=== PATIENT | female | born 1975 | race Caucasian/White ===

== ENCOUNTER 2018-03-26 17:45 | Emergency (ER) | payer MEDICAID, SELFPAY ==
[2018-03-26 17:54] VITALS: BP 134/96; PULSE 83; RESP 18; TEMP 36.8; O2SAT 97
[2018-03-26] MEDS: Dexamethasone 4 MG TAB 10 MG PO (18:43)
[2018-03-26] MEDS: Prochlorperazine 10 MG TAB PO (18:43)
[2018-03-26] MEDS: Acetaminophen 500 MG TAB 1000 MG PO (18:44)
--- NOTE | 2018-03-26 18:55 | ED.GENADUL_ITS ---
Discharge Plan Disposition Patient Disposition: HOME Condition: Good Discharge Details Chief Complaint: GenMedical Clinical Impression: Headache, migraine, Ocular migraine Primary Care Provider: Leena Joiner ED Provider: Lance Lee Home Meds and New Rx's Prescriptions: No Action ProAir HFA 200 PUFF HFA aerosol inhaler 2 inh Inhalation PRN PRNRF: 0 Loratadine 10 MG Capsule 10 mg PO DAILY RF: 0 acetaminophen [Tylenol Extra Strength] 500 MG tablet 1,000 mg PO PRN PRNRF: 0 benzonatate 100 MG capsule 100 mg PO PRN PRNRF: 0 xyhovtjtnd-hazhqyudwgyoc-dtad [Fioricet] 1 EACH capsule 1 ea PO Q6H PRN PRN (Reason: Pain) Qty: 20 RF: 0 Discharge Instructions Instructions: Ocular Migraine (ED) Additional Instructions: Please drink 8-10 cups of water per day. Please avoid preserved meats preserved foods. Please avoid caffeine, and stay well-hydrated. If you notice any worsening of your symptoms, or any new symptoms such as vomiting, diarrhea, fever, chills, shortness of breath, chest pain, numbness, weakness, or fainting , please return immediately to the emergency department for reevaluation. Please follow up with your primary care provider as soon as possible for reassessment and reevaluation. As always, it was a pleasure participating in your medical care today. Referrals: Leena Joiner [Primary Care Provider] - Medical Decision Making This is a 42-year-old female with a past medical history of fibromyalgia, and high cholesterol, who presents today for evaluation of headache. Patient states that she had odd visual symptoms of waviness in her vision, occasional speckling, and feeling like she was looking through her eyelids. The symptoms lasted a few minutes, and as she called her primary care provider to discuss his symptoms she stated that the visual symptoms completely resolved, however she then developed a mild to moderate headache. She denies any red flags concerning for severe headache. Physical exam demonstrates no focal neurologic deficits, no signs or symptoms concerning for meningitis. She has no neck stiffness, negative Kernig's and Brudzinski sign. Feel her signs and symptoms are clinically consistent with an optical migraine. test is negative. We will treat with Compazine, Decadron, and acetaminophen. She is requesting that we hold off on Toradol secondary to her history of GI bleeding from Toradol, and will also hold off on Benadryl as she states that she would like to drive home tonight. We will reassess shortly. With a normal neurologic exam, no focal neurologic deficits, and no red flags concerning with her headache, I feel that she would be a good candidate for discharge home with close follow-up with her PCP. 7:45 PM On reassessment the patient has had notable improvement of her headache, and continues to demonstrate a normal neurologic exam and no focal neurologic deficits. Patient is requesting discharge home and I think this is very reasonable. I feel her signs and symptoms are clinically consistent with an optical migraine. Recommended continued hydration, we discussed red flags for which to return the patient understands. I have extensively reviewed the treatment plan and discharge instructions with the patient. I have addressed all patient concerns at this time. The patient was made aware of what symptoms to monitor for that would warrant a return to the emergency department. Discussed the plan with the patient, they demonstrate verbal understanding and agreement with our assessment and plan at this time. HPI General Date/Time Provider Initiated Documentation: 03/26/18 18:13 . HPI Narrative: This is a pleasant 42-year-old female with a past medical history of hyperlipidemia, fibromyalgia, and headaches in the past who presents today for evaluation of headache. She states that she was at home when she noticed some blurry waviness in her vision roughly 2-1/2 hours ago, and gradually worsened, and she self any flashes of light. This is all without an episode of trauma. She then shortly afterwards developed a headache in the back of her head that radiated forward. She contacted her primary care provider, and she states that while she was on the phone with PCP her vision symptoms completely resolved. She still had a headache which she describes as mild to moderate. The patient denies any headache red flags of worst headache of life, thunderclap headache, neck pain, fever, chills, concerning family history of polycystic kidney disease, Marfan syndrome, Zach-Danlos syndrome, abdominal aortic aneurysm, aortic dissection, or intracranial aneurysm. Patient admits to having headaches like this in the past but denies having the visual symptoms. She denies any current pain in her eyes. Her visual symptoms have completely resolved. Patient denies any other complaints at this time, she denies any recent sick contacts, or contacts of meningitis. She has no other complaints at this time. Related Data Home Medications Medication Instructions Recorded Confirmed ProAir HFA 2 inh INHALATION PRN PRN 11/04/14 03/26/18 pxqtaobnkp-qxrjvbyjqqlts-rwla 1 ea PO Q6H PRN PRN #20 capsule 03/29/16 03/26/18 [Fioricet] Loratadine 10 mg PO DAILY 05/30/17 03/26/18 acetaminophen [Tylenol Extra 1,000 mg PO PRN PRN 05/30/17 03/26/18 Strength] benzonatate 100 mg PO PRN PRN 06/06/17 03/26/18 Previous Rx's Medication Instructions Recorded nxauodddqu-xaqjbxiscmbds-jqfw 1 ea PO Q6H PRN PRN #20 capsule 03/29/16 [Fioricet] Allergies Allergy/AdvReac Type Severity Reaction Status Date / Time Sulfa (Sulfonamide Allergy Severe Skin Rash Verified 03/26/18 17:58 Antibiotics) Macrolide Antibiotics Allergy Intermediate Verified 03/26/18 17:58 azithromycin [From Zithromax] Allergy Unknown Verified 03/26/18 17:58 codeine Allergy Unknown Verified 03/26/18 17:58 sulfur dioxide Allergy Unknown Verified 03/26/18 17:58 doxycycline AdvReac Mild Nausea Unverified 03/26/18 17:58 Penicillins AdvReac Mild intestinal Verified 03/26/18 17:58 cramping General Stated Complaint: GenMedical GILLIAN: 3 Review of Systems Review of Systems All systems reviewed & are unremarkable except as noted in HPI and below PFSH ADHD Abdominal pain, epigastric Anxiety Anxiety and depression Asthma Asthma, moderate persistent Carpal tunnel syndrome Cervical radiculopathy Colitis Depression Dysmenorrhea Fibromyalgia Gastroesophageal reflux disease Hematuria IBS (irritable bowel syndrome) Jaw pain Lipoma of abdominal wall Neck pain Primary fibromyalgia syndrome Rhinitis Tobacco abuse Vaginitis Vesicular skin lesions section Ligation of fallopian tube Social History Smoking/Tobacco Use Status: Current every day Exam Narrative Exam Narrative: 1.Const: Well-nourished, Well-developed, appearing stated age 2.Eyes: PERRL, no conjunctival injection, and symmetrical lids. EOMI, PERRL, Peripheral vision intact. No nystagmus. No external signs of preseptal cellulitis, no redness around the eye, no proptosis. No hyphema, no signs of trauma around the eye, no periorbital emphysema. 3.ENT: Atraumatic external nose and ears. Moist MM. Neck: Symmetric, trachea midline, No thyromegaly. Patient demonstrates good movement of cervical neck. There is no nuchal rigidity, no nuchal tenderness. Patient is able to flex the neck without any difficulty or significant pain. Negative Kernig's and Brudzinski sign. 4.CVS: +S1/S2, No murmurs or gallops. Peripheral pulses 2+ and equal in all extremities. Brisk capillary refill in all extremities. 5.RESP: Unlabored respiratory effort. Clear to auscultation bilaterally. No wheezes rales or rhonchi 6.GI: Soft, Nontender/Nondistended, No hepatosplenomegaly. No guarding or rebound. 7.MSK: Normocephalic/Atraumatic, Extremities w/o deformity or ttp No cyanosis or clubbing, Normal movement of all extremities 8.Skin: Warm, Dry. No rashes or lesions. 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 Sensation grossly intact, no focal neurologic deficits. All 6 cardinal planes of vision are fully intact. No evidence of rotatory or vertical nystagmus. The patient demonstrated a normal lcbvpo-oglc-sgoysl, good dexterity. There was no evidence of dysdiadochokinesia. Patient was able to ambulate without difficulty. There was no wide-based gait. Romberg, and spfb-kg-jhiz are both normal on testing. Sensation was intact bilaterally as well as muscle strength bilaterally for all extremities. Patient was able to verbalize butter cup with no slurring, or miss pronunciation. 10.Psych: (AAO) x3. Appropriate mood and affect Course Vital Signs Temperature 36.8 C 03/26/18 17:54 Pulse 83 03/26/18 17:54 Respiratory Rate 18 03/26/18 17:54 Blood Pressure 134/96 H 03/26/18 17:54 Pulse Oximetry 97 03/26/18 17:54 Temperature 36.8 C 03/26/18 17:54 Temperature Source Skin 03/26/18 17:54 Pulse 83 03/26/18 17:54 Respiratory Rate 18 03/26/18 17:54 Respiratory Effort 03/26/18 18:00 Blood Pressure 134/96 H 03/26/18 17:54 Blood Pressure Position Sitting 03/26/18 17:54 Pulse Oximetry 97 03/26/18 17:54 Oxygen Delivery Method Room Air 03/26/18 17:54 Oxygen Flow Rate 0 03/26/18 17:54 Pain Level 6 03/26/18 17:54
[2018-03-26 19:48] VITALS: BP 151/97; PULSE 76; RESP 16; O2SAT 100
--- NOTE | 2018-03-26 19:48 | NUR.NOTE ---
patient report nausea and headache improved 3/10 patient to ne discharged home Nursing Note:
== END 2018-03-26 20:03 | disposition home or self-care (01) ==
PROVIDERS: Emergency Provider Student in an Organized Health Care Education/Training Program; PCP Family Medicine
DX: G43.809 Other migraine, not intractable, without status migrainosus (principal)
CPT/HCPCS: 99282; J8540

== ENCOUNTER 2018-06-12 16:33 | Outpatient (REF) | payer MEDICAID, SELFPAY ==
[2018-06-12 20:49] LABS: ALT 18 U/L (12-78); AST 13 U/L (15-37); Albumin 3.9 g/dL (3.4-5.0); Alkaline Phosphatase 78 U/L (46-116); Anion Gap 9.9 mmol/L (3-11); BUN 11 mg/dL (7-18); Bilirubin, Total 0.3 mg/dL (0.2-1.0); CO2 27.1 mmol/L (21.0-32.0); CREATININE 0.97 mg/dL (0.55-1.02); Calcium 8.8 mg/dL (8.5-10.1); Chloride 101 mmol/L (98-107); Glucose 93 mg/dL (70-100); Potassium 4.5 mmol/L (3.5-5.1); Sodium 138 mmol/L (136-145); Total Protein 7.6 g/dL (6.4-8.2)
[2018-06-12 21:18] LABS: Abs Immature Grans 0.01 k/cumm (0.0-0.09); Absolute Basophil Count 0.01 k/cumm (0.0-0.2); Absolute Eosinophil Count 0.17 k/cumm (0.0-0.7); Absolute Lymphocyte Count 1.35 k/cumm (1.2-3.4); Absolute Monocyte Count 0.86 k/cumm (0.11-0.7); Absolute Neutrophil Count 5.71 k/cumm (1.2-6.7); Basophils % 0.1; Eosinophils % 2.1; HCT 45.3 % (36.0-46.0); HGB 15.2 g/dL (12.0-15.5); Immature Grans % 0.1; Lymphocytes % 16.6; Mean Corp. HGB Concentration 33.6 g/dL (32.0-36.0); Mean Corpuscular Hemoglobin 29.4 pg (27.0-33.0); Mean Corpuscular Volume 87.6 fL (80-95); Mean Platelet Volume 10.6 fL (8.0-11.0); Monocytes % 10.6; Neutrophils % 70.5; Platelet Count 344 x1000/uL (130-400); RBC 5.17 m/cumm (4.00-5.20); RBC Distribution Width 13.9 % (11.7-14.6); White Blood Cell Count 8.11 k/cumm (4.4-10.8)
[2018-06-12 21:21] LABS: Bilirubin Negative (Negative); Blood Moderate (Negative); Clarity Clear; Glucose Negative (Negative); Ketones Negative (Negative); Leukocyte Esterase Negative (Negative); Nitrite Negative (Negative); Specific Gravity 1.015 (1.005-1.025); Urobilinogen 0.2 EU/dL (Up TO 0.2); pH 5.5 (5-8)
[2018-06-12 21:51] LABS: Bacteria Negative HPF (Negative); Crystals Negative HPF (Negative); Epithelial Cells Few HPF (Negative); Mucus Negative (Negative); Other Cells Negative (Negative); RBC Negative (0-2); WBC Negative HPF (0-5)
[2018-06-12 21:52] LABS: C & S Indicated? No; Casts Negative LPF (Negative)
[2018-06-12 22:15] LABS: Bacteria Negative HPF (Negative); C & S Indicated? No; Casts Negative LPF (Negative); Crystals Negative HPF (Negative); Epithelial Cells Few HPF (Negative); Mucus Negative (Negative); Other Cells Negative (Negative); RBC Negative (0-2); WBC Negative HPF (0-5)
== END 2018-06-12 16:53 ==
LOC: NCHCN 16:33
PROVIDERS: PCP Family Medicine; Visit Provider Nurse Practitioner
DX: R10.9 Unspecified abdominal pain (principal); R31.9 Hematuria, unspecified
CPT/HCPCS: 80053; 81003; 81015; 85025

== ENCOUNTER 2018-06-23 01:42 | Outpatient (CLI) | payer MEDICAID, SELFPAY ==
[2018-06-23] MEDS: Omnipaque 350 MG/ML 100 ML BTL IJ (08:42)
--- NOTE | 2018-06-23 08:51 | DI.CT_ITS ---
SYMPTOMS/DIAGNOSIS: ABD PAIN, R10.9, HEMATURIA, R31.9 CT SCAN OF THE ABDOMEN AND PELVIS: CT scan of the abdomen and pelvis was performed prior to an following contrast administration according to the CT urogram protocol. Noncontrast CT scan of the abdomen and pelvis was performed according to the renal colic protocol. No nephrolithiasis is seen. No ureterolithiasis or hydronephrosis is present. Routine post contrast CT scan of the abdomen was then performed. There is scarring or atelectasis in the lung bases. There is a 0.4 cm noncalcified pulmonary nodule in the left lower lobe. This area is unchanged compared to the CT scan of the abdomen and pelvis from 11/04/14. The liver is normal in size. No suspicious hepatic mass is seen. There is focal fatty infiltration seen in the region of the falciform ligament. The portal, superior mesenteric and splenic veins are patent. The gallbladder is negative. There is no biliary ductal dilatation. The pancreas, spleen and adrenal glands are unremarkable. The kidneys show normal and symmetric enhancement. No evidence of a solid renal mass is present. The urinary bladder is intact. The reproductive organs are unremarkable. There is atherosclerosis of the abdominal aorta but no aneurysmal dilatation is seen. No significant abdominal or pelvic adenopathy, ascites or pneumoperitoneum is present. There is mild bowel wall thickening seen in the proximal small bowel in the left upper quadrant. This may represent a mild enteritis. The remainder of the bowel is unremarkable. There is a normal appendix seen in the right lower quadrant of the abdomen. No acute osseous abnormality is seen in the spine. Seven minute delayed images of the abdomen and pelvis were performed. The renal collecting system is unremarkable. No filling defects are seen. The urinary bladder is intact. No filling defects are present. IMPRESSION: 1. No evidence of nephrolithiasis, hydronephrosis or mass in the renal collecting system. 2. Mild bowel wall thickening in the proximal small bowel. This may represent a mild enteritis.
== END 2018-06-23 02:02 ==
PROVIDERS: PCP Family Medicine; Visit Provider Nurse Practitioner
DX: R10.9 Unspecified abdominal pain (principal); R31.9 Hematuria, unspecified; K63.89 Other specified diseases of intestine
CPT/HCPCS: 74178; J3490

== ENCOUNTER 2018-11-24 15:35 | Outpatient (REF) | payer MEDICAID, SELFPAY ==
[2018-11-24 20:56] LABS: Abs Immature Grans 0.02 k/cumm (0.0-0.09); Absolute Basophil Count 0.02 k/cumm (0.0-0.2); Absolute Eosinophil Count 0.17 k/cumm (0.0-0.7); Absolute Lymphocyte Count 1.78 k/cumm (1.2-3.4); Absolute Monocyte Count 0.64 k/cumm (0.11-0.7); Absolute Neutrophil Count 5.31 k/cumm (1.2-6.7); Basophils % 0.3; Eosinophils % 2.1; HCT 46.4 % (36.0-46.0); HGB 15.6 g/dL (12.0-15.5); Immature Grans % 0.3; Lymphocytes % 22.4; Mean Corp. HGB Concentration 33.6 g/dL (32.0-36.0); Mean Corpuscular Hemoglobin 29.2 pg (27.0-33.0); Mean Corpuscular Volume 86.7 fL (80-95); Mean Platelet Volume 10.9 fL (8.0-11.0); Monocytes % 8.1; Neutrophils % 66.8; Platelet Count 405 x1000/uL (130-400); RBC 5.35 m/cumm (4.00-5.20); RBC Distribution Width 13.8 % (11.7-14.6); White Blood Cell Count 7.94 k/cumm (4.4-10.8)
[2018-11-24 21:14] LABS: Anion Gap 12.1 mmol/L (3-11); BUN 13 mg/dL (7-18); CO2 23.9 mmol/L (21.0-32.0); Calcium 8.8 mg/dL (8.5-10.1); Chloride 102 mmol/L (98-107); Glucose 94 mg/dL (70-100); Magnesium 2.2 mg/dL (1.8-2.4); Potassium 4.3 mmol/L (3.5-5.1); Sodium 138 mmol/L (136-145); TSH (W/Ref FT4) 3.08 uIU/mL (0.36-3.74)
[2018-11-26 04:43] LABS: Vitamin D 25 Total 13.7 ng/ml (30-100)
== END 2018-11-24 15:55 ==
LOC: NCHCN 15:35
PROVIDERS: PCP Family Medicine; Visit Provider Nurse Practitioner Family
DX: M62.81 Muscle weakness (generalized) (principal); R51 Headache; R05 Cough; N95.1 Menopausal and female climacteric states
CPT/HCPCS: 80048; 82306; 83735; 84443; 85025

== ENCOUNTER 2018-12-29 10:20 | Outpatient (CLI) | payer MEDICAID, SELFPAY ==
--- NOTE | 2018-12-29 06:00 | DI.RAD_ITS ---
EXAM: XR PAIN CLINIC CERVICAL SP 2V . CLINICAL HISTORY: Cervical Epidural Steroid INjection TECHNIQUE: 2D and realtime digital imaging was performed. COMPARISON: No exams were available for comparison FINDINGS: Images submitted from the pain clinic reveal needle positioning over the midline at the level of C7 i n connection with an epidural steroid injection. Please see Dr. Eden's procedure report for further i nformation. IMPRESSION:
[2018-12-29 10:30] VITALS: BP 130/91; PULSE 76; RESP 20; TEMP 36.8; O2SAT 98
[2018-12-29] MEDS: Midazolam 2 MG/2 ML VIAL IVP ×2 (10:54→11:03)
[2018-12-29] MEDS: Lactated Ringers 1,000 ML 80 ML IV (10:55)
[2018-12-29 11:04] VITALS: BP 110/72; PULSE 76; RESP 20; O2SAT 100
[2018-12-29] MEDS: Dexamethasone Sod. Phos./Pres-Free 10 MG/ML VIAL IJ (11:05)
[2018-12-29] MEDS: Omnipaque 240 MG/ML 50 ML BTL IJ (11:05)
--- NOTE | 2018-12-29 11:05 | PDOC.PAIN_ITS ---
Pain Clinic Procedure Note Procedure Note Procedure Note: Cervical Epidural Steroid Injection DONTRELL HAMPTON has been referred to the [facility] for cervical epidural steroid injection. COMMENTS: I did review Ms. Keen's note and the patient's most recent cervical spine MRI. BERTA was interviewed and the medical record reviewed. There were no medical, pharmacologic, radiographic or other structural contraindications to attempting fluoroscopically guided epidural steroid injection. Risks and expected side effects as well as potential benefit of the procedure were reviewed with BERTA , and BERTA voiced concerns addressed. The printed consent form was signed and witnessed. Standard time-out procedure was performed. The patient was placed in the prone position on the fluoroscopy table and automated blood pressure cuff and pulse oximeter applied. The skin entry point for entering the epidural space by a midline C7-T1 interlaminar approach was identified under fluoroscopy and marked. Following thorough Chlorhexadine p reparation of the skin and draping and 1% lidocaine infiltration of the skin entry point and subcutaneous tissues, an 18 gauge Tuohy needle was placed under fluoroscopic guidance and with loss of resistance technique into the C7-T1 epidural space. Upon needle placement and loss of resistance there were no paresthesiae or return of blood or CSF through the needle. 1 cc of Omnipaque 240 was injected with clear epidural spread in the A/P, lateral and oblique views. 15 mg of preservative free Dexomethasone was injected with no unusual discomfort expressed by BERTA. This was flushed with 1 cc of normal saline. BERTA 's vital signs were stable throughout the procedure and were as recorded in the docflowsheet by the nursing staff. Follow up plans and appointments were discussed with the BERTA. Post procedure instruction was given as documented in nursing documentation and having met discharge criteria, BERTA was discharged from the [facility]. COMMENTS: If this procedure is found to be helpful, it can be completed up to 3 times per 12 months as needed. CC: Leena Joiner
== END 2018-12-29 10:40 ==
PROVIDERS: PCP Family Medicine; Visit Provider Preventive Medicine Occupational Medicine
DX: M54.12 Radiculopathy, cervical region (principal)
CPT/HCPCS: 62321; 72040; J2250; Q9967

== ENCOUNTER 2019-08-27 03:48 | Outpatient (CLI) | payer MEDICAID, SELFPAY ==
--- NOTE | 2019-08-27 | DI.US_ITS ---
EXAM: US ABDOMEN CLINICAL HISTORY: EPIGASTRIC PAIN, R10.13 TECHNIQUE: Ultrasound performed using standard protocol. COMPARISON: US RENAL,PELVIS TRANSVAG US from 04/29/2014 FINDINGS: There is mildly increased hepatic echogenicity raising the possibility of hepatic steatosis. No foca l hepatic lesion identified. Gallbladder is normal in appearance with no evidence of cholelithiasis or gallbladder wall thickening . Negative sonographic Abarca sign. No biliary dilatation. Pancreas is unremarkable in appearance. Spleen appears normal. The kidneys are normal in size and shape with no evidence of hydronephrosis or nephrolithiasis. Abdominal aorta and IVC are of normal diameter. IMPRESSION: Question hepatic steatosis. Examination is otherwise unremarkable with no evidence of cholelithiasis . DATA REPOSITORY:
== END 2019-08-27 04:08 ==
PROVIDERS: PCP Family Medicine; Visit Provider Family Medicine
DX: R10.13 Epigastric pain (principal); K76.0 Fatty (change of) liver, not elsewhere classified
CPT/HCPCS: 76700

== ENCOUNTER 2019-09-10 02:21 | Outpatient (CLI) | payer MEDICAID, SELFPAY ==
--- NOTE | 2019-09-10 | DI.NM_ITS ---
EXAM: NM HEPATOBILIARY CCK GRP CLINICAL HISTORY: EPIGASTRIC PAIN, R10.13. TECHNIQUE: Injected dose: 4.8 mCi Tc-99 mebrofenin Initial dynamic images: 60 minutes Post-Gallbladder fillin.02 mcg/kg CCK intravenously over a 45min infusion. Addition images: 45 minute dynamic during CCK administration. COMPARISON: US US ABDOMEN from 08/27/2019 FINDINGS: Normal hepatic transit time. Prompt excretion into the small bowel. Prompt excretion into the gallbladder. Gallbladder ejection fraction 24%, below the lower limit of normal of 40 percent. IMPRESSION: 1. Low gallbladder ejection fraction of 24 percent.. SNM guidelines: Gallbladder visualization should be present by 3 hours. Delayed tvsgplr-dv-zwdak stinson sit beyond 60 min raises the suspicion for partial common bile duct (CBD) obstruction. Gallbladder ejection fraction <35% has a good correlation with acalculous disease (i.e., chronic acal culous cholecystitis, cystic duct syndrome, sphincter of Oddi disease).
[2019-09-10] MEDS: Sincalide 5 MCG VIAL 1.1 MCG IJ (12:09)
== END 2019-09-10 02:41 ==
PROVIDERS: PCP Family Medicine; Visit Provider Family Medicine
DX: R10.13 Epigastric pain (principal); K82.8 Other specified diseases of gallbladder
CPT/HCPCS: 78227

== ENCOUNTER 2019-12-06 15:32 | Outpatient (REF) | payer MEDICAID, SELFPAY ==
[2019-12-08 16:00] LABS: SARS-CoV-2 RNA Undetected (Undetected); SARS-CoV-2 Specimen Source Nasopharynx
== END 2019-12-06 15:52 ==
LOC: NCHCN 15:32
PROVIDERS: PCP Family Medicine; Visit Provider Nurse Practitioner Family
DX: Z20.828 Contact with and (suspected) exposure to other viral communicable diseases (principal)
CPT/HCPCS: U0003

== ENCOUNTER 2020-03-08 14:40 | Outpatient (REF) | payer MEDICAID, SELFPAY ==
[2020-03-08 21:42] LABS: HCT 46.1 % (36.0-46.0); HGB 15.1 g/dL (11.2-15.7); MCH 28.9 pg (27.0-33.0); MCHC 32.8 % (32.0-36.0); MCV 88.1 fL (80-95); Platelet Count 386 10^3/uL (130-400); RBC 5.23 10^6/uL (3.93-5.22); RDW 13.3 % (11.7-14.6); RDW-SD 43.2 fL
== END 2020-03-08 15:00 ==
LOC: NCHCN 14:40
PROVIDERS: PCP Family Medicine; Visit Provider Nurse Practitioner Family
DX: R51.9 Headache, unspecified (principal)
CPT/HCPCS: 85027

== ENCOUNTER 2020-06-10 01:06 | Emergency (ER) | payer MEDICAID, SELFPAY ==
[2020-06-10 01:09] VITALS: BP 148/103; PULSE 97; RESP 18; TEMP 36.6; O2SAT 100
--- NOTE | 2020-06-10 01:21 | ED.GENADUL_ITS ---
Discharge Plan Disposition Patient Disposition: HOME Condition: Good Discharge Details Clinical Impression: Abdominal wall cellulitis Primary Care Provider: Leena Joiner ED Provider: Lance Lee Home Meds and New Rx's Prescriptions: New cephalexin 500 mg capsule 500 mg PO QID 7 Days Qty: 28 RF: 0 Continued clindamycin phosphate 1 % gel 1 applic TP BID RF: 0 cholecalciferol (vitamin D3) 2,000 unit capsule 2,000 unit PO DAILY RF: 0 dextroamphetamine-amphetamine [Adderall] 20 mg tablet 20 mg PO DAILY RF: 0 albuterol sulfate [ProAir HFA] 200 PUFF HFA aerosol inhaler 2 inh Inhalation Q4H PRNRF: 0 acetaminophen [Tylenol Extra Strength] 500 MG tablet 1,000 mg PO PRN PRNRF: 0 [id number] [Fioricet] 1 EACH capsule 1 ea PO Q6H PRN PRN (Reason: Pain) Qty: 20 RF: 0 Discharge Instructions Instructions: Cellulitis (ED) Additional Instructions: At this time you have mild cellulitis at the postoperative site. There is no evidence of infection. This is a mild bacterial infection of the skin. It does not appear to have affected your internal abdominal area. Please take the Keflex as directed. Take Tylenol and Motrin as needed for pain. Please contact Dr. Martin and follow-up closely with her. If you notice any worsening of your symptoms, or any new symptoms such as spreading of the redness, worsening abdominal pain, vomiting, diarrhea, fever, chills, shortness of breath, chest pain, numbness, weakness, or fainting , please return immediately to the emergency department for reevaluation. Please follow up with your primary care provider as soon as possible for reassessment and reevaluation. As always, it was a pleasure participating in your medical care today. Referrals: Leena Joiner [Primary Care Provider] - Qian Styles [ NON[facility] STAFF PHYSICIAN] - Medical Decision Making This is a very pleasant 44-year-old female with past medical history of fibromyalgia, irritable bowel syndrome, asthma, and a recent cholecystectomy 1 month to 1 week ago in the [place] by Dr. Martin. The procedure was uneventful per the patient. She states that everything has been fine except for the last 2 days, at which point she initially noticed some mild firmness and pain around her umbilicus which was the site of the surgery, and this was subsequently followed by rapidly developing erythema over the last 12 to 24 hours, generalized mild abdominal pain, mild flank pain bilaterally. She denies any urinary complaints, frequency or dysuria. She denies any fever or chills but does admit to feeling flushed. She denies any chest pain or shortness of breath. No change in medications, no diarrhea, benign. No other complaints at this time. No other modifying factors. Exam demonstrates a mildly tender abdomen over the site of the postoperative umbilical area. Mild redness but no drainage. Not sure this is present. Differential includes cellulitis, abscess, or less likely long postop complication. Will get CT scan, labs, fluids, monitor closely and reassess. Patient does not want anything for pain at this time. 2:46 AM Laboratory work-up is returned, patient does demonstrate a mild white count at 14, no bandemia. Lactate normal. Electrolytes unremarkable, renal function stable. Urinalysis negative. CT scan results show evidence of soft tissue area in the abdominal umbilical region that shows mild inflammatory changes suggestive of cellulitis. No evidence of abscess or fluid collection at all. Clinically there does not appear to be any evidence of abscess either on exam. We will give the patient a gram of ceftriaxone here, and Keflex for home use. She has multiple antibiotic allergies and intolerances otherwise. Patient's vital signs remained stable here. Discussed the importance of close follow-up with her surgeon Dr. Martin, discussed red flags which to return. I have extensively reviewed the treatment plan and discharge instructions with the patient. I have addressed all patient concerns at this time. The patient was made aware of what symptoms to monitor for that would warrant a return to the emergency department. Discussed the plan with the patient, they demonstrate verbal understanding and agreement with our assessment and plan at this time. The documentation in this chart was dictated using [employer] dictation software. Please excuse any dictation errors. FINDINGS: Liver: Mild fatty liver change. Gallbladder and bile ducts: Previous cholecystectomy. No biliary dilatation. Pancreas: Normal. No ductal dilation. Spleen: Normal. No splenomegaly. Adrenal glands: Normal. No mass. Kidneys and ureters: Normal. No hydronephrosis. Stomach and bowel: Unremarkable. No obstruction. No mucosal thickening. Appendix: A normal appendix is visible. See series 5, image 507 adjacent to the right iliac vessels. Intraperitoneal space: Nonspecific minor free fluid in the pelvic cul-de-sac. Vasculature: Abdominal aorta and iliac vessels are unremarkable. Lymph nodes: Unremarkable. No enlarged lymph nodes. Lymph nodes: Unremarkable. No enlarged lymph nodes. Urinary bladder: Urinary bladder is unremarkable. Reproductive: Uterus has features suggesting bicornuate change. There is no uterine mass or inflammation. No dominant adnexal cyst. No adnexal inflammatory changes. Bones/joints: Unremarkable. No acute fracture. Soft tissues: Soft tissue attenuation changes in the region of the umbilicus with minimal adjacent fatty stranding suggesting an area of cellulitis. This is a new finding in comparison with a previous study 06/23/2018. The area of soft tissue attenuation fullness measures approximately 2.7 x 2.1 cm. See series 4, image 43. There is no gas within this collection. There is no hernia of intra-abdominal contents. IMPRESSION: 1. Soft tissues of the abdominal wall in the region of the umbilicus show mild inflammatory changes suggesting a focal area of cellulitis. There is no fluid collection or gas to suggest abscess. There is no hernia. 2. Previous cholecystectomy. 3. Fatty liver change. 4. Nonspecific minor free fluid in the pelvic cul-de-sac. 5. Bicornuate uterus. Thank you for allowing us to participate in the care of your patient. Dictated and Authenticated by: Ruddy Barnett MD 06/10/2020 2:29 AM Eastern Time ([place] & [place]) HPI General Date/Time Provider Initiated Documentation: 06/10/20 01:08 . HPI Narrative: This is a very pleasant 44-year-old female with past medical history of fibromyalgia, irritable bowel syndrome, asthma, and a recent cholecystectomy 1 month to 1 week ago in the [place] by Dr. Martin. The procedure was uneventful per the patient. She states that everything has been fine except for the last 2 days, at which point she initially noticed some mild firmness and p ain around her umbilicus which was the site of the surgery, and this was subsequently followed by rapidly developing erythema over the last 12 to 24 hours, generalized mild abdominal pain, mild flank pain bilaterally. She denies any urinary complaints, frequency or dysuria. She denies any fever or chills but does admit to feeling flushed. She denies any chest pain or shortness of breath. No change in medications, no diarrhea, benign. No other complaints at this time. No other modifying factors. Related Data Home Medications Medication Instructions Recorded Confirmed albuterol sulfate [ProAir HFA] 2 inh INHALATION Q4H PRN 11/04/14 06/10/20 [id number]-[id number] 1 ea PO Q6H PRN PRN #20 cap 03/29/16 06/10/20 [Fioricet] acetaminophen [Tylenol Extra 1,000 mg PO PRN PRN 05/30/17 06/10/20 Strength] cholecalciferol (vitamin D3) 50 2,000 unit PO DAILY 07/07/18 06/10/20 mcg (2,000 unit) capsule clindamycin phosphate 1 % topical 1 applic TP BID 07/07/18 06/10/20 gel dextroamphetamine-amphetamine 20 20 mg PO DAILY 07/07/18 06/10/20 mg tablet cephalexin 500 mg PO QID 7 Days #28 cap 06/10/20 Previous Rx's Medication Instructions Recorded [id number]-[id number] 1 ea PO Q6H PRN PRN #20 cap 03/29/16 [Fioricet] cephalexin 500 mg PO QID 7 Days #28 cap 06/10/20 Allergies Allergy/AdvReac Type Severity Reaction Status Date / Time dicyclomine Allergy Severe Verified 06/10/20 01:15 Sulfa (Sulfonamide Allergy Severe Skin Rash Verified 06/10/20 01:15 Antibiotics) Macrolide Antibiotics Allergy Intermediate Verified 06/10/20 01:15 azithromycin [From Zithromax] Allergy Unknown Verified 06/10/20 01:15 codeine Allergy Unknown Verified 06/10/20 01:15 sulfur dioxide Allergy Unknown Verified 06/10/20 01:15 erythromycin base Allergy Verified 06/10/20 01:15 ibuprofen Allergy Verified 06/10/20 01:15 tramadol Allergy Verified 06/10/20 01:15 doxycycline AdvReac Mild Nausea Unverified 06/10/20 01:15 Penicillins AdvReac Mild intestinal Verified 06/10/20 01:15 cramping General Stated Complaint: Abd Prob GILLIAN: 3 Review of Systems All systems reviewed & are unremarkable except as noted in HPI and below [facility] Medical History (Updated 06/10/20 @ 02:48 by Lance Lee DO) ADHD Anxiety Asthma Carpal tunnel syndrome Cervical radiculopathy Colitis Depression Dysmenorrhea Fibromyalgia Gastroesophageal reflux disease IBS (irritable bowel syndrome) Lipoma of abdominal wall Neck pain Tobacco abuse Surgical History section x4 Ligation of fallopian tube Family History Other Diabetes Fibromyalgia Heart disease Social History Smoking/Tobacco Use Status: Current every day Smoking risk assessment performed?: Yes Alcohol Intake: current Alcohol Intake frequency: holidays/special occasions only Drug use: Occasionally Substance use type: marijuana Household members: children Housing: apartment Number of Children: 4 current occupation: disabled What is your relationship status?: never Panel score (0-1 are the most socially isolated patients): 0 What type of physical activity do you participate in: none Do you feel safe in your relationship?: Yes Exam Narrative Exam Narrative: 1.Const: Well-nourished, Well-developed, appearing stated age 2.Eyes: PERRL, no conjunctival injection, and symmetrical lids. 3.ENT: Atraumatic external nose and ears. Moist MM. Neck: Symmetric, trachea mid line, No thyromegaly. 4.CVS: +S1/S2, No murmurs or gallops. Peripheral pulses 2+ and equal in all extremities. Brisk capillary refill in all extremities. 5.RESP: Unlabored respiratory effort. Clear to auscultation bilaterally. No wheezes rales or rhonchi 6.GI: Soft, mild tenderness around the umbilicus, mild firmness in that area. Mild erythema extending around the umbilicus and an oval-shaped pattern going cranially to caudally. Maximum diameter is roughly 4 cm x 2 cm. 7.MSK: Normocephalic/Atraumatic, Extremities w/o deformity or ttp No cyanosis or clubbing, Normal movement of all extremities 8.Skin: Warm, Dry. Please see GI 9.Neuro: claims analyst II-XII grossly intact. Sensation grossly intact, no focal neurologic deficits. 10.Psych: (AAO) x3. Appropriate mood and affect Course Vital Signs Vital signs: Vital Signs Temperature 36.6 C 06/10/20 01:09 Pulse 97 H 06/10/20 01:09 Respiratory Rate 18 06/10/20 01:09 Blood Pressure 148/103 H 06/10/20 01:09 Pulse Oximetry 100 06/10/20 01:09 Temperature 36.6 C 06/10/20 01:09 Pulse 97 H 06/10/20 01:09 Respiratory Rate 18 06/10/20 01:09 Blood Pressure 148/103 H 06/10/20 01:09 Pulse Oximetry 100 06/10/20 01:09 Pain Level 5 06/10/20 01:09 Lab/Test Results Lab/Test Results: 06/10/20 01:14 Blood Blood Culture - Pending 06/10/20 01:14 Blood Blood Culture - Pending
[2020-06-10 01:32] LABS: Bilirubin Negative (Negative); Blood Small (Negative); Clarity Clear (Clear); Glucose Negative (Negative); Ketones Negative (Negative); Leukocyte Esterase Negative (Negative); Nitrite Negative (Negative); Specific Gravity >= 1.030 (1.005-1.025); Urobilinogen 0.2 EU/dL (Up TO 0.2); pH 5.5 (5-8)
[2020-06-10 01:44] LABS: Bacteria Few HPF (Negative); C & S Indicated? No; Casts Negative LPF (Negative); Crystals Negative HPF (Negative); Epithelial Cells Few HPF (Negative); Mucus Negative (Negative); WBC 0-2 HPF (0-5)
[2020-06-10 01:44] LABS: Lactate 1.2 mmol/L (0.6-1.4)
[2020-06-10 01:45] LABS: Abs Immature Grans 0.07 10^3/uL (0.0-0.06); Absolute Basophil Count 0.06 10^3/uL (0.0-0.2); Absolute Eosinophil Count 0.28 10^3/uL (0.0-0.7); Absolute Lymphocyte Count 2.59 10^3/uL (1.2-3.4); Absolute Monocyte Count 1.23 10^3/uL (0.1-0.8); Absolute Neutrophil Count 9.93 10^3/uL (1.2-6.7); Basophils % 0.4; HCT 43.9 % (36.0-46.0); HGB 14.9 g/dL (11.2-15.7); Immature Grans % 0.5; Lymphocytes % 18.3; MCH 29.7 pg (27.0-33.0); MCHC 33.9 % (32.0-36.0); MCV 87.5 fL (80-95); MPV 9.1 fL (8.0-11.0); Monocytes % 8.7; Neutrophils % 70.1; Nucleated RBC 0 %; Platelet Count 373 10^3/uL (130-400); RBC 5.02 10^6/uL (3.93-5.22); RDW 13.2 % (11.7-14.6); RDW-SD 42.2 fL; WBC 14.17 10^3/uL (4.4-10.8)
[2020-06-10] MEDS: Normal Saline 1,000 ML 1000 ML IV (01:46)
--- NOTE | 2020-06-10 01:52 | DI.CT_ITS ---
EXAM: CT ABDOMEN PELVIS W CLINICAL HISTORY: 1 month postop umbilical redness abd pain TECHNIQUE: Imaging Protocol: Axial computed tomography images with coronal and sagittal reformatted images were created and reviewed CONTRAST MATERIAL: Intravenous: Omnipaque 350 Contrast volume:100 mL Oral: No COMPARISON: CT CT ABDOMEN PELVIS WO/W from 06/23/2018 FINDINGS: ABDOMEN: Lung Bases: Stable small pulmonary nodules (less than 3 mm) in the lung bases. Liver: Normal density. No measurable mass. Portal, Superior Mesenteric, and Splenic Veins: Unremarkable. Gallbladder and Biliary Tract: Status post cholecystectomy. No significant biliary ductal dilatation . No fluid collection is seen in the gallbladder bed. Pancreas: Normal density, no abnormal calcifications or inflammatory process. Spleen: Normal. Adrenals: No masses seen. Kidneys: Normal size, contour and axis. Less than 2 mm nonobstructing stone in the lower pole of the left kidney. No masses seen. Abdominal Aorta: Abdominal portion non-dilated. Minimal atherosclerosis. Bowel: No obstruction or bowel wall thickening. Appendix is unremarkable. Peritoneal Cavity: No ascites, collection or mesenteric inflammatory response. No free air. Lymph Nodes: Within normal limits. Bones: Within normal limits for the patient's age. Soft Tissues: There is soft tissue thickening seen in the region of the umbilicus with mild adjacent fatty stranding. The area measures 2.7 x 2.1 cm. No focal fluid collection or air is seen to sugges t an abscess. No evidence of a hernia. PELVIS: Bladder: Symmetric distention, no gross wall thickening. Reproductive Organs: No mass or dominant cysts. Lymph Nodes: Within normal limits. Bones: Within normal limits for the patient's age. IMPRESSION: 1. Soft tissue thickening in the anterior abdominal wall in the region of the umbilicus with mild ass ociated inflammatory changes. This may be postsurgical, cellulitis cannot be excluded. No focal flu id collection or gas to suggest an abscess is seen. No anterior abdominal wall hernia is present. 2. Status cholecystectomy. No biliary ductal dilatation. RADIATION DOSE DELIVERED: 906.28mGy.cm Total DLP DATA REPOSITORY: All CT scans at this facility are submitted to the National Radiology Data Registry (NRDR) Dose Index Registry (DIR) with the [employer] (ACR). RADIATION OPTIMIZATION: All CT scans at this facility use at least one of these dose optimization te chniques: automated exposure control; mA and/or kV adjustment per patient size (includes targeted exa ms where dose is matched to clinical indication); or iterative reconstruction.
[2020-06-10] MEDS: Normal Saline Flush 10 ML SYR IVP (01:54)
[2020-06-10] MEDS: Normal Saline - Diluent 50 ML VIAL IV (01:58)
[2020-06-10 01:59] LABS: ALT 21 U/L (14-59); AST 11 U/L (15-37); Albumin 3.9 g/dL (3.4-5.0); Alkaline Phosphatase 90 U/L (46-116); Anion Gap 12.3 mmol/L (3-11); BUN 13 mg/dL (7-18); Bilirubin, Total 0.6 mg/dL (0.2-1.0); CO2 22.7 mmol/L (21.0-32.0); CREATININE 1.1 mg/dL (0.55-1.02); Calcium 8.4 mg/dL (8.5-10.1); Chloride 102 mmol/L (98-107); Estimated GFR 54.21 (mL/min/1.73m2); Glucose 95 mg/dL (74-106); Potassium 3.3 mmol/L (3.5-5.1); Sodium 137 mmol/L (136-145); Total Protein 7.9 g/dL (6.4-8.2)
--- NOTE | 2020-06-10 02:29 | DI.VRAD_ITS ---
PROCEDURE INFORMATION: Exam: CT Abdomen And Pelvis With Contrast Exam date and time: 06/10/2020 1:53 AM Age: 44 years old Clinical indication: Abdominal pain; Generalized; Prior surgery; Surgery date: 1-6 months; Surgery type: Cholecystectomy 1 month ago, umbilical pain and redness x1-2 days, no recent trauma. Area of redness increasing over last 24 hours, no fever, nausea, or vomiting TECHNIQUE: Imaging protocol: Computed tomography of the abdomen and pelvis with contrast. Radiation optimization: All CT scans at this facility use at least one of these dose optimization techniques: automated exposure control; mA and/or kV adjustment per patient size (includes targeted exams where dose is matched to clinical indication); or iterative reconstruction. Contrast material: [id number]; Contrast volume: 100 ml; Contrast route: INTRAVENOUS (IV); COMPARISON: CT ABDOMEN PELVIS WO/W 06/23/2018 8:34 AM FINDINGS: Liver: Mild fatty liver change. Gallbladder and bile ducts: Previous cholecystectomy. No biliary dilatation. Pancreas: Normal. No ductal dilation. Spleen: Normal. No splenomegaly. Adrenal glands: Normal. No mass. Kidneys and ureters: Normal. No hydronephrosis. Stomach and bowel: Unremarkable. No obstruction. No mucosal thickening. Appendix: A normal appendix is visible. See series 5, image 507 adjacent to the right iliac vessels. Intraperitoneal space: Nonspecific minor free fluid in the pelvic cul-de-sac. Vasculature: Abdominal aorta and iliac vessels are unremarkable. Lymph nodes: Unremarkable. No enlarged lymph nodes. Lymph nodes: Unremarkable. No enlarged lymph nodes. Urinary bladder: Urinary bladder is unremarkable. Reproductive: Uterus has features suggesting bicornuate change. There is no uterine mass or inflammation. No dominant adnexal cyst. No adnexal inflammatory changes. Bones/joints: Unremarkable. No acute fracture. Soft tissues: Soft tissue attenuation changes in the region of the umbilicus with minimal adjacent fatty stranding suggesting an area of cellulitis. This is a new finding in comparison with a previous study 06/23/2018. The area of soft tissue attenuation fullness measures approximately 2.7 x 2.1 cm. See series 4, image 43. There is no gas within this collection. There is no hernia of intra-abdominal contents. IMPRESSION: 1. Soft tissues of the abdominal wall in the region of the umbilicus show mild inflammatory changes suggesting a focal area of cellulitis. There is no fluid collection or gas to suggest abscess. There is no hernia. 2. Previous cholecystectomy. 3. Fatty liver change. 4. Nonspecific minor free fluid in the pelvic cul-de-sac. 5. Bicornuate uterus. Dictated and Authenticated by: Ruddy Barnett MD. Ordering:CLARITZA Lucas MD
[2020-06-10] MEDS: cefTRIAXone 1 GM/50 ML BAG IVPB (02:52)
[2020-06-10 03:09] VITALS: BP 151/93; PULSE 82; RESP 16; O2SAT 100
== END 2020-06-10 03:25 | disposition home or self-care (01) ==
PROVIDERS: Emergency Provider Student in an Organized Health Care Education/Training Program; PCP Family Medicine
DX: L03.311 Cellulitis of abdominal wall (principal); Z90.49 Acquired absence of other specified parts of digestive tract
CPT/HCPCS: 80053; 81025; 87040; 96361; 96365; 99285; 74177; 81003; 81015; 83605; 85025; 99284; J0696

== ENCOUNTER 2020-08-14 15:05 | Outpatient (REF) | payer MEDICAID, SELFPAY ==
[2020-08-14 21:21] LABS: ALT 30 U/L (14-59); Albumin 3.5 g/dL (3.4-5.0); Alkaline Phosphatase 77 U/L (46-116); Anion Gap 12.5 mmol/L (3-11); BUN 12 mg/dL (7-18); Bilirubin, Total 0.3 mg/dL (0.2-1.0); CO2 23.5 mmol/L (21.0-32.0); Calcium 8.5 mg/dL (8.5-10.1); Chloride 104 mmol/L (98-107); Glucose 113 mg/dL (74-106); Potassium 4.2 mmol/L (3.5-5.1); Sodium 140 mmol/L (136-145); Total Protein 6.8 g/dL (6.4-8.2)
[2020-08-14 21:38] LABS: AST 13 U/L (15-37); Vitamin D 25 Total 14.6 ng/mL (30-100)
[2020-08-14 21:47] LABS: Bilirubin, Direct 0.1 mg/dL (0.0-0.2)
== END 2020-08-14 15:06 | disposition home or self-care (01) ==
LOC: NCHCN 15:05
PROVIDERS: PCP Family Medicine; Visit Provider Family Medicine
DX: E55.9 Vitamin D deficiency, unspecified (principal); M79.7 Fibromyalgia; M62.81 Muscle weakness (generalized)
CPT/HCPCS: 80053; 80076; 82306

== ENCOUNTER 2020-09-12 09:02 | Outpatient (REF) | payer MEDICAID, SELFPAY ==
[2020-09-12 13:53] LABS: Calculated LDL 180 mg/dL (<100); Cholesterol 287 mg/dL (<200); HDL Cholesterol 31 mg/dL (40-60); Triglyceride 384 mg/dL (<150)
[2020-09-14 04:56] LABS: Vitamin D 25 Total 15.7 ng/mL (30-100)
== END 2020-09-12 09:03 | disposition home or self-care (01) ==
LOC: NCHCN 09:02
PROVIDERS: PCP Family Medicine; Visit Provider Family Medicine
DX: E55.9 Vitamin D deficiency, unspecified (principal); Z13.220 Encounter for screening for lipoid disorders
CPT/HCPCS: 80061; 82306

== ENCOUNTER 2020-10-27 13:51 | Outpatient (REF) | payer MEDICAID, SELFPAY ==
[2020-10-29 11:01] LABS: COVID-19 RT-PCR UVMMC Result Negative (Negative)
== END 2020-10-27 13:52 | disposition home or self-care (01) ==
LOC: NCHCN 13:51
PROVIDERS: PCP Family Medicine; Visit Provider Family Medicine
DX: J06.9 Acute upper respiratory infection, unspecified (principal); Z20.822 Contact with and (suspected) exposure to COVID-19
CPT/HCPCS: U0003

== ENCOUNTER 2022-02-12 22:49 | Emergency (ER) | payer MEDICAID, SELFPAY ==
[2022-02-12 23:04] VITALS: BP 158/110; PULSE 85; RESP 20; TEMP 36.9; O2SAT 85
[2022-02-12 23:33] LABS: Bilirubin Negative (Negative); Blood Trace-intact (Negative); Clarity Clear (Clear); Glucose Negative (Negative); Ketones Trace mg/dL (Negative); Leukocyte Esterase Negative (Negative); Nitrite Negative (Negative); Specific Gravity 1.025 (1.005-1.025); Urobilinogen 0.2 EU/dL (Up TO 0.2)
[2022-02-12 23:45] LABS: Bacteria Rare HPF (Negative); C & S Indicated? No; Crystals Negative HPF (Negative); Epithelial Cells Few HPF (Negative); Mucus Negative (Negative); RBC 0-2 HPF (0-2); WBC 0-2 HPF (0-5)
--- NOTE | 2022-02-12 23:45 | DI.CT_ITS ---
Exam(s) CT ABDOMEN PELVIS W EXAM: CT ABDOMEN PELVIS W CLINICAL HISTORY: abd pain nausea, hx c sect and cholecystect. TECHNIQUE: Imaging Protocol: Axial computed tomography images with coronal and sagittal reformatted images were created and reviewed CONTRAST MATERIAL: Intravenous: Omnipaque 350 Contrast volume:100 ml Oral: no COMPARISON: CT CT ABDOMEN PELVIS W from 06/10/2020 FINDINGS: ABDOMEN: Lung Bases: Normal where visualized. Liver: Mildly enlarged. Mild fatty infiltration. Stable low density lesion near falciform ligament. . No suspicious mass. Gallbladder and biliary tract: Status post cholecystectomy. No radiodense calculus or dilation. Pancreas: Normal density, no abnormal calcifications or inflammatory process. Spleen: Normal. Kidneys: Normal size, contour and axis. No radiodense stones or obstructive uropathy. No masses seen. Adrenal glands: No masses seen. Abdominal Aorta: Abdominal portion non-dilated. PELVIS: Bladder: No gross wall thickening. No calculi.No focal mass. Bowel: Question minimal thickening of few loops of small bowel in the mid abdomen. No obstruction . Appendix normal.: Nearly free of stool. Peritoneal cavity: No ascites, collection or mesenteric inflammatory response. Bones: Within normal limits for age. Reproductive organs: Within normal limits. Lymph nodes: Unremarkable. Impression: Question of mild enteritis mid small bowel. RADIATION DOSE DELIVERED: 965.55mGy.cm Total DLP DATA REPOSITORY: All CT scans at this facility are submitted to the National Radiology Data Registry (NRDR) Dose Index Registry (DIR) with the [employer] (ACR). RADIATION OPTIMIZATION: All CT scans at this facility use at least one of these dose optimization te chniques: automated exposure control; mA and/or kV adjustment per patient size (includes targeted exa ms where dose is matched to clinical indication); or iterative reconstruction.
--- NOTE | 2022-02-12 23:56 | ED.GENADUL_ITS ---
Discharge Plan Disposition Patient Disposition: HOME Condition: Stable Discharge Details Clinical Impression: Enteritis Primary Care Provider: Leena Joiner ED Provider: Omer Ramirez Home Meds and New Rx's Prescriptions: New pantoprazole 40 mg tablet,delayed release (DR/EC) 40 mg PO DAILY 30 Days Qty: 30 0RF No Action clindamycin phosphate 1 % gel 1 applic TP BID cholecalciferol (vitamin D3) 2,000 unit capsule 2,000 unit PO DAILY dextroamphetamine-amphetamine [Adderall] 20 mg tablet 20 mg PO DAILY albuterol sulfate [ProAir HFA] 200 PUFF HFA aerosol inhaler 2 inh Inhalation Q4H PRN acetaminophen [Tylenol Extra Strength] 500 MG tablet 1,000 mg PO PRN PRN [id number]-[id number] [Fioricet] 1 EACH capsule 1 ea PO Q6H PRN PRN (Reason: Pain) Qty: 20 0RF Discharge Instructions Instructions: Abdominal Pain (ED) Additional Instructions: Please follow-up with GI specialist referral. Please take medications as prescribed. Medical Decision Making 46-year-old female history of section, cholecystectomy, presents with abdominal bloating nausea and vomiting specifically after eating worse over the past week. Noticeable gaseous distention of the abdomen on examination without tympanic quality, nonperitoneal, afebrile nontoxic however given persistent nausea inability to tolerate p.o. and distention in the setting of a patient with multiple abdominal surgeries must consider incomplete versus complete bowel obstruction versus irritable bowel disease versus enterocolitis versus less likely appendicitis versus less likely pancreatitis versus gastritis. Screening labs imaging fluids antiemetics analgesia 02: 43 evidence of localized enteritis. Consider viral versus foodborne. Patient be given referral to GI specialist. GI meds for home. HPI General Date/Time Provider Initiated Documentation: 02/12/22 23:07 . HPI Narrative: 46-year-old female history of section cholecystectomy, presents with n ausea and bloating after eating as well as several episodes of nonbloody nonbilious emesis over the past several days Related Data Home Medications Medication Instructions Recorded Confirmed albuterol sulfate 90 mcg/actuation 2 inh inhalation Q4H PRN 11/04/14 06/10/20 aerosol inhaler (ProAir HFA) jvvniovogj-zvwjnhyjgzwyu-nutrviqn 1 ea PO Q6H PRN PRN Pain #20 caps 03/29/16 06/10/20 50 mg-300 mg-40 mg capsule (Fioricet) acetaminophen 500 mg tablet 1,000 mg PO PRN PRN 05/30/17 06/10/20 (Tylenol Extra Strength) cholecalciferol (vitamin D3) 50 2,000 unit PO DAILY 07/07/18 06/10/20 mcg (2,000 unit) capsule clindamycin phosphate 1 % topical 1 applic topical BID 07/07/18 06/10/20 gel dextroamphetamine-amphetamine 20 20 mg PO DAILY 07/07/18 06/10/20 mg tablet (Adderall) pantoprazole 40 mg tablet,delayed 40 mg PO DAILY 30 days #30 tabs 02/13/22 release Previous Rx's Medication Instructions Recorded [id number]-hkfhnkwvhxipi-kwqhhscu 1 ea PO Q6H PRN PRN Pain #20 caps 03/29/16 50 mg-300 mg-40 mg capsule (Fioricet) pantoprazole 40 mg tablet,delayed 40 mg PO DAILY 30 days #30 tabs 02/13/22 release Allergies Allergy/AdvReac Type Severity Reaction Status Date / Time dicyclomine Allergy Severe Verified 06/10/20 01:15 Sulfa (Sulfonamide Allergy Severe Skin Rash Verified 06/10/20 01:15 Antibiotics) Macrolide Antibiotics Allergy Intermediate Verified 06/10/20 01:15 azithromycin [From Zithromax] Allergy Unknown Verified 06/10/20 01:15 codeine Allergy Unknown Verified 06/10/20 01:15 sulfur dioxide Allergy Unknown Verified 06/10/20 01:15 erythromycin base Allergy Verified 06/10/20 01:15 ibuprofen Allergy Verified 06/10/20 01:15 tramadol Allergy Verified 06/10/20 01:15 doxycycline AdvReac Mild Nausea Unverified 06/10/20 01:15 Penicillins AdvReac Mild intestinal Verified 06/10/20 01:15 cramping General Stated Complaint: Abd Prob GILLIAN: 3 Review of Systems Narrative: Review of Systems Constitutional: negative Eyes: negative ENT: negative Cardiovascular: negative Respiratory: negative Gastrointestinal: Abdominal pain, nausea, vomiting : negative Musculoskeletal: negative Skin: negative Neurologic: negative Psych: negative PFSH All Active Problems (Updated 02/13/22 @ 02:43 by Omer Ramirez MD) Abdominal wall cellulitis (Acute) Enteritis (Acute) Dysfunction of right eustachian tube (Acute) Environmental allergies (Acute) Oral mass (Acute) Migraine headache with aura (Acute) Gait abnormality (Acute) Cervical radiculopathy (Acute) Pelvic pain (Chronic) Flank pain (Acute) Carpal tunnel syndrome (Acute 11/05/12) Dysmenorrhea (Acute 12/07/14) Medical History (Updated 02/13/22 @ 02:43 by Omer Ramirez MD) ADHD Anxiety Asthma Carpal tunnel syndrome Cervical radiculopathy Colitis Depression Dysmenorrhea Fibromyalgia Gastroesophageal reflux disease IBS (irritable bowel syndrome) Lipoma of abdominal wall Neck pain Tobacco abuse Surgical History section x4 Ligation of fallopian tube Family History Other Diabetes Fibromyalgia Heart disease Social History Smoking/Tobacco Use Status: Current every day Smoking risk assessment performed?: Yes Alcohol Intake: current Alcohol Intake frequency: holidays/special occasions only Drug use: Occasionally Substance use type: marijuana Household members: children Housing: apartment Number of Children: 4 current occupation: disabled What is your relationship status?: never Panel score (0-1 are the most socially isolated patients): 0 What type of physical activity do you participate in: none Do you feel safe at home: Yes Do you feel safe in your relationship?: Yes Exam Narrative Exam Narrative: Physical Examination General: alert, awake, cooperative, resting comfortably, no acute distress HEENT: normocephalic, atraumatic; PERRL, EOM intact, conjunctiva normal; no nasal discharge; moist mucous membranes, oral and pharyngeal mucosa normal, tolerating secretions Neck: supple, trachea midline; full ROM Chest: normal to inspection Respiratory: normal respiratory effort, speaking in full sentences, clear to auscultation, no wheezing, rales or rhonchi Cardiac: regular rate, regular rhythm, S1S2 intact, no murmurs rubs or gallops GI: abdomen soft, non-tender, slight gaseous distention nontympanic, nonperitoneal Skin: no lesions, rashes or trauma appreciated Neuro: AAOx3, normal speech, moving all extremities Psych: Appropriate mood and affect Course Vital Signs Vital signs: Vital Signs Temperature 36.9 C 02/12/22 23:04 Pulse 85 02/12/22 23:04 Respiratory Rate 20 02/12/22 23:04 Blood Pressure 158/110 H 02/12/22 23:04 Pulse Oximetry 85 L 02/12/22 23:04 Temperature 36.9 C 02/12/22 23:04 Temperature Source Tympanic 02/12/22 23:04 Pulse 85 02/12/22 23:04 Respiratory Rate 20 02/12/22 23:04 Respiratory Effort 02/12/22 23:28 Blood Pressure 158/110 H 02/12/22 23:04 Blood Pressure Position Sitting 02/12/22 23:04 Pulse Oximetry 85 L 02/12/22 23:04 Oxygen Delivery Method Room Air 02/12/22 23:04 Oxygen Flow Rate 0 02/12/22 23:04 Pain Level 10 02/12/22 23:04 Lab/Test Results Lab/Test Results: Laboratory Tests Range/Units 02/12/22 23:21 Urine Color (Yellow) Yellow Urine Clarity (Clear) Clear Urine pH (5-8) 6.0 Ur Specific [place] (1.005-1.025) 1.025 Urine Protein (Negative) mg/dL Negative Urine Ketones (Negative) mg/dL Trace H Urine Blood (Negative) Trace-intact H Urine Nitrite (Negative) Negative Urine Bilirubin (Negative) Negative Urine Urobilinogen (Up TO 0.2) EU/dL 0.2 Ur Leukocyte Esterase (Negative) Negative Urine RBC (0-2) HPF 0-2 Urine WBC (0-5) HPF 0-2 Ur Epithelial Cells (Negative) HPF Few Urine Crystals (Negative) HPF Negative Urine Bacteria (Negative) HPF Rare Urine Mucus (Negative) Negative Ur Culture Indicated? No Urine Glucose (Negative) mg/dL Negative POC- Test(urine) Negative
[2022-02-13] MEDS: Normal Saline 1,000 ML 1000 ML IV (00:06)
[2022-02-13] MEDS: MORPHine 4 MG/ML SYR IVP (00:07)
[2022-02-13] MEDS: Ondansetron 4 MG/2 ML VIAL IVP (00:07)
[2022-02-13] MEDS: Omnipaque 350 MG/ML 100 ML BTL IJ (00:07)
[2022-02-13 00:15] LABS: Abs Immature Grans 0.02 10^3/uL (0.0-0.06); Absolute Basophil Count 0.04 10^3/uL (0.0-0.2); Absolute Eosinophil Count 0.12 10^3/uL (0.0-0.7); Absolute Monocyte Count 0.95 10^3/uL (0.1-0.8); Absolute Neutrophil Count 7.34 10^3/uL (1.2-6.7); Basophils % 0.4; Eosinophils % 1.1; Immature Grans % 0.2; Lymphocytes % 21.6; MCH 29.5 pg (27.0-33.0); MCHC 34.1 % (32.0-36.0); MCV 86 fL (80-95); MPV 9.1 fL (8.0-11.0); Monocytes % 8.8; Neutrophils % 67.9; Platelet Count 368 10^3/uL (130-400); RBC 5.09 10^6/uL (3.93-5.22); RDW 12.5 % (11.7-14.6); RDW-SD 39.8 fL; WBC 10.81 10^3/uL (4.4-10.8)
[2022-02-13 00:16] LABS: Absolute Lymphocyte Count 2.33 10^3/uL (1.2-3.4)
[2022-02-13 00:25] LABS: ALT 19 U/L (14-59); AST 16 U/L (15-37); Albumin 3.9 g/dL (3.4-5.0); Alkaline Phosphatase 79 U/L (46-116); Anion Gap 9.5 mmol/L (3-11); BUN 11 mg/dL (7-18); Bilirubin, Total 0.5 mg/dL (0.2-1.0); CO2 24.5 mmol/L (21.0-32.0); CREATININE 1.1 mg/dL (0.55-1.02); Chloride 103 mmol/L (98-107); Estimated GFR 63.15 (mL/min/1.73m2); Glucose 97 mg/dL (74-106); Lipase 98 U/L (73-393); Potassium 3.4 mmol/L (3.5-5.1); Sodium 137 mmol/L (136-145); Total Protein 7.5 g/dL (6.4-8.2)
[2022-02-13] MEDS: Normal Saline Flush 10 ML SYR IVP (00:31)
--- NOTE | 2022-02-13 01:16 | DI.VRAD_ITS ---
PROCEDURE INFORMATION: Exam: CT Abdomen And Pelvis With Contrast Exam date and time: 02/13/2022 12:10 AM Age: 46 years old Clinical indication: Nausea and vomiting; Abdominal pain; Generalized; Prior surgery; Surgery date: 6+ months; Surgery type: Cholecystectomy, 4 c-sections; Patient HX: Abd pain, cramps, nausea, TECHNIQUE: Imaging protocol: Computed tomography of the abdomen and pelvis with contrast. Radiation optimization: All CT scans at this facility use at least one of these dose optimization techniques: automated exposure control; mA and/or kV adjustment per patient size (includes targeted exams where dose is matched to clinical indication); or iterative reconstruction. Contrast material: OMNIPAQUE 350; Contrast volume: 100 ml; Contrast route: INTRAVENOUS (IV); COMPARISON: CT ABDOMEN PELVIS W 06/10/2020 1:48 AM FINDINGS: Liver: Normal. No mass. Gallbladder and bile ducts: Status post cholecystectomy. Pancreas: Normal. No ductal dilation. Spleen: Normal. No splenomegaly. Adrenal glands: Normal. No mass. Kidneys and ureters: Normal. No hydronephrosis. Stomach and bowel: Question minimal element of focal infectious/inflammatory enteritis in mid small bowel. Appendix: No evidence of appendicitis. Intraperitoneal space: Unremarkable. No free air. No significant fluid collection. Vasculature: Unremarkable. No abdominal aortic aneurysm. Lymph nodes: Unremarkable. No enlarged lymph nodes. Urinary bladder: Unremarkable as visualized. Reproductive: Unremarkable as visualized. Bones/joints: Unremarkable. No acute fracture. Soft tissues: Unremarkable. IMPRESSION: Question minimal element of focal infectious/inflammatory enteritis in mid small bowel. Dictated and Authenticated by: Eyad Lopez MD. Ordering:ISSAC Tello MD
--- NOTE | 2022-02-13 02:48 | NUR.NOTE ---
Referral made to GI follow up in [facility] for enteritis in one week, put the referral in care manger's box for assistance with the appt.Nursing Note:
--- NOTE | 2022-02-13 13:27 | PDOC.ERCMACT ---
- If Service Date Differs Date of service: 02/13/22 Time of Service: 13:27 Care Management Activity Note Elsie is seen in the ED for abdominal pain. At the request of ED provider, KERON coordinates a referral to [facility] to assist Elsie in obtaining an appointment for further evaluation and treatment of enteritis. She has [place] Medicaid for insurance.
== END 2022-02-13 02:50 | disposition home or self-care (01) ==
PROVIDERS: Emergency Provider Emergency Medicine; PCP Family Medicine
DX: K52.89 Other specified noninfective gastroenteritis and colitis (principal); R11.2 Nausea with vomiting, unspecified; R10.11 Right upper quadrant pain
CPT/HCPCS: 80053; 81025; 83690; 96361; 96374; 96375; 99285; 74177; 81003; 81015; 85025; 99284; J2270; J2405; J3490

== ENCOUNTER 2022-03-01 18:22 | Emergency (ER) | payer MEDICAID, SELFPAY ==
[2022-03-01] VITALS (15 sets, daily range): BP systolic 124–154; BP diastolic 73–114; PULSE 56–73; RESP 20; TEMP 36.7; O2SAT 97–100
--- NOTE | 2022-03-01 18:34 | ED.GENADUL_ITS ---
Discharge Plan Disposition Patient Disposition: Home Condition: Improving Discharge Details Clinical Impression: Abdominal pain, Anxiety Primary Care Provider: Leena Joiner ED Provider: Bhakti Mahajan Home Meds and New Rx's Prescriptions: Continued cholecalciferol (vitamin D3) 2,000 unit capsule 2,000 unit PO DAILY dextroamphetamine-amphetamine [Adderall] 20 mg tablet 20 mg PO DAILY albuterol sulfate [ProAir HFA] 200 PUFF HFA aerosol inhaler 2 inh Inhalation Q4H PRN acetaminophen [Tylenol Extra Strength] 500 MG tablet 1,000 mg PO PRN PRN Discharge Instructions Instructions: Ondansetron (By mouth), Abdominal Pain (ED), Anxiety (ED) Additional Instructions: Your labs and imaging are reassuring here today. As we discussed, you should follow up with your primary care about the incidental finding of pulmonary nodule. Please keep your upcoming appointment with your primary care. Encourage hydration. I am concerned that some of this may be associated with frequent marijuana use, please consider cutting back. Please continue with Tylenol as needed for discomfort as well as hot packs. Please continue with your Protonix for your acid reflux as well as your meditation for anxiety. Please continue to cut back on tobacco smoking. Please keep upcoming appointment with gastroenterology at [facility]. If you develop fevers/chills, increased pain or other new/worsening symptoms please seek care urgently once again. Referrals: Leena Joiner [Primary Care Provider] - Discharge Data Discharge Date/Time-TO BE ENTERED AT DEPARTURE: 03/01/22 21:16 Medical Decision Making Patient is a pleasant 46-year-old female, brought in via EMS, with chief complaint of abdominal pain. She reports that pain began around 7 AM with slow progressive worsening of symptoms. She denies any fevers or chills. Past surgical history is pertinent for cholecystectomy, section and tubal ligation. She reports that she has had episodes like this historically with abdominal pain but that the very specific location as well as severity is worse than typical. Indicates the right lower quadrant is area of maximal tenderness. States that it does feel similar to when she has had ovarian cysts before. States that she has had intermittent severe belly pain, occassionaly releaved with hot showers, over the past several months. States that her menses has also become more intermittent, just started menses today after skipping last month. Has had a tubal ligation. Denies fevers/chills. No vaginal discharge prior ot onset of menses. States that she does smoke marijuana twice daily. Patient also reports increased anxiety. On exam, patient appears anxious. She is hemodynamically stable, appears non- toxic. She indicates the right lower quadrant is area of maximal discomfort. However, with distraction able to palpate deeply across the abdomen with no peritoneal findings. No CVA tenderness. Lungs are clear, normal cardiac exam. As the patient's recurrent symptoms are being reported to be around time of menses, as well as her missing times of menses, I considered possible early menopause. She reports her mom did get the menopause at 41. His hormonal changes could be contributing to her abdominal discomfort. Also considered cannabinoid induced hyperemesis as she has had changes with hot showers and smokes marijuana daily. However, hot showers are not always alleviating for the patient. With the location of the pain, I do feel that ruling out for appendicitis would be appropriate and will obtain CT scan as well as baseline labs. Discussed this plan with the patient who is in agreement. She did try her typical at home regimen without success of alleviating her pain, will treat anxiety and discomfort with Ativan as a pill that this would likely be most beneficial for patient. Labs reviewed. Patient does have leukocytosis white count of 15.6. CMP significant for creatinine of 1.1 which is baseline for the patient. Lipase within normal limits. Urine does show moderate blood and is previously stated, patient did begin her menses today. FINDINGS: Lungs: Statistically benign tiny nodule left lung base. Follow-up as per institutional protocol. Liver: Fatty liver with no mass lesions. Gallbladder and bile ducts: Cholecystectomy. Typical caliber of the CBD for a post cholecystectomy patient. Pancreas: No ductal dilation. No masses.? Spleen: No splenomegaly or focal lesions. Adrenal glands: No mass. Kidneys and ureters: No hydronephrosis. No renal masses.? Stomach and bowel: No obstruction. No mucosal thickening. Appendix: Normal morphology of the appendix. Intraperitoneal space: No free air. No significant fluid collection. Vasculature: No abdominal aortic aneurysm. Lymph nodes: No significantly enlarged lymph nodes. Urinary bladder: Unremarkable as visualized. Reproductive: Unremarkable as visualized. Bones/joints: No acute fracture. Soft tissues: No suspicious lesions.? IMPRESSION: 1. No acute findings. 2. Incidental findings as described. Reevaluated the patient and discussed her results. Patient had voiced concern that fully emptying her bladder so we did complete a postvoid residual which showed 0 cc after urination. She and I discussed her abdominal discomfort at length. After IV Ativan, her pain is completely subsided and her anxiety is also improved. She is now reporting that at home her pain is completely alleviated with a hot pack, further increasing my concern for marijuana induced hyperemesis. Patient does not have follow-up plan with GI. She was previously referred to them and I did encourage that she keep this upcoming appointment. We also discussed the lung nodule and I did advise that she follow-up with primary care about this. She reports she does have an upcoming primary care appointment. We will send her home with [facility] in the event that she develops any recurrent nausea. Encourage hydration. Discussed return precautions. She and I discussed her mental health, she has been meditating and she is found greatly beneficial. She states that she is cutting back on her smoking. However, she is concerned that her counselor recently moved to a different office, will give her contact information for [facility] human services. She is amenable to this as well. All of her questions and concerns were addressed and she is in agreement with this plan. Sign Out No HPI General Date/Time Provider Initiated Documentation: 03/01/22 18:26 . Limitations to Documentation: no limitations . Information obtained by: patient, EMS, RN notes reviewed and old records reviewed . History of Present Illness 46 year old F presents to the emergency department with the chief complaint of abdominal pain, maximal RLQ, described as severe and similar to prior episodes, with intensity rated at 9. Quality is described as stabbing, and is localized to the abdomen. Patient reports no radiation. Patient started experiencing this hour(s) and it has been constant. Immobilization improves symptom(s), Movement worsens symptoms . Patient notes loss of appetite and nausea/vomiting (nausea, no vomiting); denies chest pain, cough, diaphoresis, fever/chills, rash and shortness of breath. Patient did receive the following treatments prior to arrival, other (APAP) Related Data Home Medications Medication Instructions Recorded Confirmed albuterol sulfate 90 mcg/actuation 2 inh inhalation Q4H PRN 11/04/14 03/01/22 aerosol inhaler (ProAir HFA) acetaminophen 500 mg tablet 1,000 mg PO PRN PRN 05/30/17 03/01/22 (Tylenol Extra Strength) cholecalciferol (vitamin D3) 50 2,000 unit PO DAILY 07/07/18 03/01/22 mcg (2,000 unit) capsule dextroamphetamine-amphetamine 20 20 mg PO DAILY 07/07/18 06/10/20 mg tablet (Adderall) Allergies Allergy/AdvReac Type Severity Reaction Status Date / Time dicyclomine Allergy Severe Verified 06/10/20 01:15 Sulfa (Sulfonamide Allergy Severe Skin Rash Verified 06/10/20 01:15 Antibiotics) Macrolide Antibiotics Allergy Intermediate Verified 06/10/20 01:15 azithromycin [From Zithromax] Allergy Unknown Verified 06/10/20 01:15 codeine Allergy Unknown Verified 06/10/20 01:15 sulfur dioxide Allergy Unknown Verified 06/10/20 01:15 erythromycin base Allergy Verified 06/10/20 01:15 ibuprofen Allergy Verified 06/10/20 01:15 tramadol Allergy Verified 06/10/20 01:15 doxycycline AdvReac Mild Nausea Unverified 06/10/20 01:15 Penicillins AdvReac Mild intestinal Verified 06/10/20 01:15 cramping General Stated Complaint: Abd Prob GILLIAN: 3 Review of Systems Constitutional Constitutional: Reports as per HPI, Denies chills and Denies fever(s) Cardiovascular Cardiovascular: Reports as per HPI, Denies chest pain and Denies dyspnea Respiratory Respiratory: Reports as per HPI, Denies cough and Denies dyspnea Gastrointestinal Gastrointestinal: Reports as per HPI Integumentary/Breasts Skin/Breast: Reports as per HPI and Denies rash Neurologic Neurologic: Reports as per HPI PFSH All Active Problems (Updated 03/01/22 @ 21:06 by EUNICE Chapman) Abdominal wall cellulitis (Acute) Enteritis (Acute) Abdominal pain (Acute) Anxiety (Chronic) Dysfunction of right eustachian tube (Acute) Environmental allergies (Acute) Oral mass (Acute) Migraine headache with aura (Acute) Gait abnormality (Acute) Cervical radiculopathy (Acute) Pelvic pain (Chronic) Flank pain (Acute) Carpal tunnel syndrome (Acute 11/05/12) Dysmenorrhea (Acute 12/07/14) Medical History (Updated 03/01/22 @ 21:06 by EUNICE Chapman) ADHD Anxiety Asthma Carpal tunnel syndrome Cervical radiculopathy Colitis Depression Dysmenorrhea Fibromyalgia Gastroesophageal reflux disease IBS (irritable bowel syndrome) Lipoma of abdominal wall Neck pain Tobacco abuse Surgical History section x4 Ligation of fallopian tube Family History Other Diabetes Fibromyalgia Heart disease Social History Smoking/Tobacco Use Status: Current every day Smoking risk assessment performed?: Yes Alcohol Intake: current Alcohol Intake frequency: holidays/special occasions only Drug use: Occasionally Substance use type: marijuana Household members: children Housing: apartment Number of Children: 4 current occupation: disabled What is your relationship status?: never Panel score (0-1 are the most socially isolated patients): 0 What type of physical activity do you participate in: none Do you feel safe at home: Yes Do you feel safe in your relationship?: Yes Exam Const General: cooperative, healthy appearing, uncomfortable, no acute distress, well developed and anxious Nutritional Appearance: average body habitus and well nourished Orientation: alert and awake HENMT Head: normal to inspection Mouth: moist mucous membranes Resp Effort & Inspection: normal respiratory effort, able to speak in complete sentences and no respiratory distress Auscultation: clear to auscultation bilaterally, no rales, no rhonchi and no wheezes Cardio Rate: regular rate Rhythm: regular rhythm Heart Sounds: S1 normal and S2 normal GI Inspection: normal to inspection Palpation: soft, no hernias, no masses, not rigid, tender (indicates RLQ pain over McBurneys point, none with palpation) obturator sign negative, psoas sign negative and with no rebound tenderness and No ascites Percussion: normal to percussion Auscultation: normal bowel sounds Back/Spine/Pelvis Back: no CVA tenderness Skin General skin exam: no rashes or lesions noted Trauma: no lacerations or abrasions Neuro General: patient alert and patient awake Cognition: normal cognition Speech: speech normal Gait: normal gait Psych Appearance: grossly normal and well kempt Mental Status: mental status grossly normal Speech and Movement: speech and movement normal Course Vital Signs Vital signs: Vital Signs Temperature 36.7 C 03/01/22 18:28 Pulse 66 03/01/22 18:28 Respiratory Rate 20 03/01/22 18:28 Blood Pressure 143/77 H 03/01/22 18:28 Pulse Oximetry 99 03/01/22 18:28 Temperature 36.7 C 03/01/22 18:28 Temperature Source Tympanic 03/01/22 18:28 Pulse 66 03/01/22 18:28 Respiratory Rate 20 03/01/22 18:28 Blood Pressure 143/77 H 03/01/22 18:28 Blood Pressure Position Supine 03/01/22 18:28 Pulse Oximetry 99 03/01/22 18:28 Oxygen Delivery Method Room Air 03/01/22 18:28 Oxygen Flow Rate 0 03/01/22 18:28
--- NOTE | 2022-03-01 18:45 | DI.CT_ITS ---
Exam(s) CT ABDOMEN PELVIS W EXAM: CT ABDOMEN PELVIS W INDICATION: RLQ pain. COMPARISON: CT CT ABDOMEN PELVIS W from 02/13/2022 TECHNIQUE: FINDINGS: CT examination of the abdomen and pelvis was performed with intravenous infusion of 100 cc of Omnipaq ue 350. Images obtained through the lung bases are unremarkable. The liver shows decreased attenuation consistent with hepatic steatosis, no focal lesion identified.. Prior cholecystectomy noted, bile ducts are CT normal. Pancreas appears normal. Spleen is unremarkable in appearance. Adrenals appear normal. The kidneys are unremarkable with no evidence of hydronephrosis, nephrolithiasis, or renal mass.. Ur inary bladder unremarkable. Abdominal aorta is of normal diameter and no major vascular abnormality is seen. No abdominal wall hernia. No abdominal or pelvic adenopathy. [employer] structures appear intact. Appendix is normal. No evidence of diverticulitis or bowel obstruction. IMPRESSION: No evidence of acute intra-abdominal process. RADIATION DOSE DELIVERED: Total DLP Total DLP RADIATION OPTIMIZATION: All CT scans at this facility use at least one of these dose optimization te chniques: automated exposure control; mA and/or kV adjustment per patient size (includes targeted exa ms where dose is matched to clinical indication); or iterative reconstruction.
[2022-03-01] MEDS: Lactated Ringers 1,000 ML 1000 ML IV (19:22)
[2022-03-01] MEDS: LORazepam 2 MG/ML VIAL 1 MG IVP (19:22)
[2022-03-01 19:28] LABS: Bilirubin Negative (Negative); Blood Moderate (Negative); Clarity Clear (Clear); Glucose Negative (Negative); Ketones Negative (Negative); Leukocyte Esterase Negative (Negative); Nitrite Negative (Negative); Specific Gravity 1.015 (1.005-1.025); Urobilinogen 0.2 EU/dL (Up TO 0.2)
[2022-03-01 19:30] LABS: Abs Immature Grans 0.06 10^3/uL (0.0-0.06); Absolute Eosinophil Count 0.23 10^3/uL (0.0-0.7); Absolute Monocyte Count 1.13 10^3/uL (0.1-0.8); Basophils % 0.4; Eosinophils % 1.5; HCT 45.8 % (36.0-46.0); HGB 15.3 g/dL (11.2-15.7); Immature Grans % 0.4; Lymphocytes % 11.6; MCHC 33.4 % (32.0-36.0); MCV 87 fL (80-95); MPV 9.2 fL (8.0-11.0); Monocytes % 7.2; Neutrophils % 78.9; Platelet Count 341 10^3/uL (130-400); RBC 5.28 10^6/uL (3.93-5.22); RDW 12.8 % (11.7-14.6); RDW-SD 40.6 fL; WBC 15.63 10^3/uL (4.4-10.8)
[2022-03-01 19:33] LABS: Absolute Basophil Count 0.06 10^3/uL (0.0-0.2); Absolute Lymphocyte Count 1.81 10^3/uL (1.2-3.4); Absolute Neutrophil Count 12.33 10^3/uL (1.2-6.7)
[2022-03-01 19:37] LABS: Bacteria Negative HPF (Negative); C & S Indicated? No; Casts Negative LPF (Negative); Crystals Negative HPF (Negative); Epithelial Cells Few HPF (Negative); Mucus Negative (Negative)
[2022-03-01 19:49] LABS: ALT 17 U/L (14-59); AST 14 U/L (15-37); Albumin 3.9 g/dL (3.4-5.0); Alkaline Phosphatase 83 U/L (46-116); Anion Gap 8.3 mmol/L (3-11); BUN 10 mg/dL (7-18); Bilirubin, Total 0.5 mg/dL (0.2-1.0); CO2 25.7 mmol/L (21.0-32.0); CREATININE 1.1 mg/dL (0.55-1.02); Calcium 8.9 mg/dL (8.5-10.1); Chloride 100 mmol/L (98-107); Estimated GFR 63.15 (mL/min/1.73m2); Glucose 107 mg/dL (74-106); Magnesium 1.9 mg/dL (1.8-2.4); Potassium 3.7 mmol/L (3.5-5.1); Sodium 134 mmol/L (136-145); Total Protein 7.7 g/dL (6.4-8.2)
[2022-03-01 19:55] LABS: Lipase 92 U/L (73-393)
[2022-03-01] MEDS: Omnipaque 350 MG/ML 100 ML BTL IJ (20:19)
[2022-03-01] MEDS: Normal Saline - Diluent 50 ML VIAL IJ (20:20)
--- NOTE | 2022-03-01 20:24 | DI.VRAD_ITS ---
PROCEDURE INFORMATION: Exam: CT Abdomen And Pelvis With Contrast Exam date and time: 03/01/2022 20:12 Age: 46 years old Clinical indication: Abdominal pain; Localized; Right lower quadrant (rlq); Prior surgery; Surgery date: 6+ months; Surgery type: H/o , tubal; Additional info: Rlq pain TECHNIQUE: Imaging protocol: Computed tomography of the abdomen and pelvis with contrast. Radiation optimization: All CT scans at this facility use at least one of these dose optimization techniques: automated exposure control; mA and/or kV adjustment per patient size (includes targeted exams where dose is matched to clinical indication); or iterative reconstruction. Contrast material: OMNI 350; Contrast volume: 100 ml; Contrast route: INTRAVENOUS (IV); COMPARISON: CT ABDOMEN PELVIS W 02/13/2022 00:10 FINDINGS: Lungs: Statistically benign tiny nodule left lung base. Follow-up as per institutional protocol. Liver: Fatty liver with no mass lesions. Gallbladder and bile ducts: Cholecystectomy. Typical caliber of the CBD for a post cholecystectomy patient. Pancreas: No ductal dilation. No masses. Spleen: No splenomegaly or focal lesions. Adrenal glands: No mass. Kidneys and ureters: No hydronephrosis. No renal masses. Stomach and bowel: No obstruction. No mucosal thickening. Appendix: Normal morphology of the appendix. Intraperitoneal space: No free air. No significant fluid collection. Vasculature: No abdominal aortic aneurysm. Lymph nodes: No significantly enlarged lymph nodes. Urinary bladder: Unremarkable as visualized. Reproductive: Unremarkable as visualized. Bones/joints: No acute fracture. Soft tissues: No suspicious lesions. IMPRESSION: 1. No acute findings. 2. Incidental findings as described. Dictated and Authenticated by: Rivka Harrison MD. Ordering:CORIN Ya MD
[2022-03-01] MEDS: Ondansetron O.D.T. 4 MG TABEF, 3 TABS/BTL PO (21:08)
== END 2022-03-01 21:16 | disposition home or self-care (01) ==
PROVIDERS: Emergency Provider Physician Assistant; PCP Family Medicine
DX: F41.9 Anxiety disorder, unspecified (principal); R10.31 Right lower quadrant pain; D72.829 Elevated white blood cell count, unspecified; J45.909 Unspecified asthma, uncomplicated; F90.9 Attention-deficit hyperactivity disorder, unspecified type; F17.200 Nicotine dependence, unspecified, uncomplicated; F12.988 Cannabis use, unspecified with other cannabis-induced disorder; R11.10 Vomiting, unspecified
CPT/HCPCS: 80053; 81025; 83690; 96361; 96374; 99284; 74177; 81003; 81015; 83735; 85025; J2060; J3490

== ENCOUNTER 2022-04-04 15:51 | Emergency (ER) | payer MEDICAID, SELFPAY ==
--- NOTE | 2022-04-04 15:45 | RT.EKG_ITS ---
APPROVED REPORT Exam: Resting ECG Reason for Exam: dizziness Patient Location: E HR:61 bpm ECG Measurements Heart Rate 61 AXIS VA 140 P 0 QRSd 84 QRS 1 QT 428 T 0 QTc 432 Conclusion Sinus rhythm...normal P axis, V-rate 60- 99. Sinus. No STEMI. I have reviewed and interpreted ECG and agree with software generated interpretation.
[2022-04-04 16:04] VITALS: BP 145/96; PULSE 66; RESP 20; TEMP 36.5; O2SAT 99
[2022-04-04 16:31] LABS: Abs Immature Grans 0.04 10^3/uL (0.0-0.06); Absolute Basophil Count 0.07 10^3/uL (0.0-0.2); Absolute Eosinophil Count 0.11 10^3/uL (0.0-0.7); Absolute Monocyte Count 0.95 10^3/uL (0.1-0.8); Absolute Neutrophil Count 11.36 10^3/uL (1.2-6.7); Basophils % 0.5; Eosinophils % 0.8; HCT 50.8 % (36.0-46.0); HGB 17.4 g/dL (11.2-15.7); Immature Grans % 0.3; Lymphocytes % 11.9; MCH 29.3 pg (27.0-33.0); MCHC 34.3 % (32.0-36.0); MCV 86 fL (80-95); Monocytes % 6.7; Neutrophils % 79.8; Platelet Count 467 10^3/uL (130-400); RBC 5.94 10^6/uL (3.93-5.22); RDW 12.5 % (11.7-14.6); RDW-SD 39.4 fL; WBC 14.23 10^3/uL (4.4-10.8)
[2022-04-04 16:32] LABS: Absolute Lymphocyte Count 1.69 10^3/uL (1.2-3.4)
[2022-04-04 16:46] LABS: ALT 18 U/L (14-59); AST 17 U/L (15-37); Albumin 4.8 g/dL (3.4-5.0); Alkaline Phosphatase 88 U/L (46-116); Anion Gap 11.8 mmol/L (3-11); BUN 9 mg/dL (7-18); Bilirubin, Total 0.5 mg/dL (0.2-1.0); CO2 22.2 mmol/L (21.0-32.0); CREATININE 1.1 mg/dL (0.55-1.02); Calcium 9.5 mg/dL (8.5-10.1); Chloride 102 mmol/L (98-107); Estimated GFR 63.15 (mL/min/1.73m2); Glucose 118 mg/dL (74-106); Potassium 3.8 mmol/L (3.5-5.1); Sodium 136 mmol/L (136-145)
[2022-04-04 17:06] LABS: COVID-19 PCR Negative (Negative); Influenza A PCR Negative (Negative); Influenza B PCR Negative (Negative); RSV PCR Negative (Negative)
[2022-04-04 17:07] LABS: Source Nasopharynx
--- NOTE | 2022-04-04 17:13 | W.ED.GENAD ---
Discharge Plan Disposition Patient Disposition: Home Condition: Improving Discharge Details Clinical Impression: Vertigo Primary Care Provider: Leena Joiner ED Provider: Haylee Dubois Home Meds and New Rx's Prescriptions: New meclizine 12.5 mg tablet 12.5 mg PO TID PRN (Reason: dizziness) Qty: 14 0RF ondansetron 4 mg tablet,disintegrating 4 mg PO TID PRN (Reason: nausea and vomiting) Qty: 6 0RF Continued cholecalciferol (vitamin D3) 2,000 unit capsule 2,000 unit PO DAILY dextroamphetamine-amphetamine [Adderall] 20 mg tablet 20 mg PO DAILY albuterol sulfate [ProAir HFA] 200 PUFF HFA aerosol inhaler 2 inh Inhalation Q4H PRN acetaminophen [Tylenol Extra Strength] 500 MG tablet 1,000 mg PO PRN PRN Discharge Instructions Instructions: Vertigo (ED) Additional Instructions: Your blood tests and EKG today are reassuring and show no evidence of acute concerning or significant findings. Drink plenty of fluids and get plenty of rest. Take the meclizine every 8 hours as needed and directed for symptoms of dizziness. Take the Zofran every 6-8 hours as needed and directed for symptoms of nausea and vomiting. You can attempt the Kodak maneuver at home to help with symptoms of your dizziness. Follow-up with your primary care doctor in 1 week. Return to the emergency department with any worsening or new concerning symptoms. Discharge Data Discharge Date/Time-TO BE ENTERED AT DEPARTURE: 04/04/22 20:23 Discharge Physician: Haylee Dubois Medical Decision Making 1615 -- 46-year-old female with history of anxiety, depression, irritable bowel syndrome, fibromyalgia, GERD, ADHD who presents for dizziness, nausea and vomiting for the past few days. Patient appears anxious but nontoxic. Her vitals are within normal limits. Normal ENT exam. No focal deficits. She does have horizontal nystagmus on exam. Suspect peripheral vertigo. Also consider COVID, influenza, dehydration or electrolyte abnormality. History of presentation does not appear consistent with subarachnoid hemorrhage, CVA, meningitis. Do not see an indication for imaging of her head and patient is agreeable. We will place an IV, bolus IV fluids, screening labs, fluvid and give a dose of IV tylenol, zofran and PO meclizine, valium and reassess. 193 --labs reviewed. White blood cell count 14. She has had similar leukocytosis dating back to 2020. Hemoglobin 17 and has had similar elevated hemoglobin in the past, may be consistent with dehydration. Fluvid negative. Patient reassessed at bedside and states she feels better would like to go home. An Kodak maneuver was attempted at bedside without significant relief but she was advised to continue this at home as directed. Discussed with patient that we did not obtain any imaging of her head at this time but if her symptoms do not improve or worsen, to return immediately to the emergency department for further evaluation and consideration for imaging at that time. She was given meclizine and Zofran for home and prescription sent electronically to her pharmacy. Advised to follow up with the primary care doctor for re-evaluation. Usual and customary return precautions given prior to discharge. Medical Records Medical records reviewed: Yes I reviewed the patient's medical records. Lab Data Lab results reviewed: Yes I reviewed the patient's lab results. Labs: Laboratory Tests Range/Units 04/04/22 04/04/22 04/04/22 16:24 16:24 16:24 WBC (4.4-10.8) 10^3/uL 14.23 H RBC (3.93-5.22) 10^6/uL 5.94 H Hgb (11.2-15.7) g/dL 17.4 H Hct (36.0-46.0) % 50.8 H MCV (80-95) fL 86 MCH (27.0-33.0) pg 29.3 MCHC (32.0-36.0) % 34.3 RDW (11.7-14.6) % 12.5 Plt Count (130-400) 10^3/uL 467 H MPV (8.0-11.0) fL 9.0 Immature Gran % 0.3 Neutrophils % 79.8 Lymphocytes % 11.9 Monocytes % 6.7 Eosinophils % 0.8 Basophils % 0.5 Nucleated RBC % (0.0-0.3) % 0.0 Absolute Neutrophils (1.2-6.7) 10^3/uL 11.36 H Absolute Lymphocytes (1.2-3.4) 10^3/uL 1.69 Absolute Monocytes (0.1-0.8) 10^3/uL 0.95 H Absolute Eosinophils (0.0-0.7) 10^3/uL 0.11 Absolute Basophils (0.0-0.2) 10^3/uL 0.07 Sodium (136-145) mmol/L 136 Potassium (3.5-5.1) mmol/L 3.8 Chloride (98-107) mmol/L 102 Carbon Dioxide (21.0-32.0) mmol/L 22.2 Anion Gap (3-11) mmol/L 11.8 H BUN (7-18) mg/dL 9 Creatinine (0.55-1.02) mg/dL 1.1 H Est GFR (CKD-EPI 2020) (mL/min/1.73m2) 63.15 Glucose (74-106) mg/dL 118 H Calcium (8.5-10.1) mg/dL 9.5 Magnesium (1.8-2.4) mg/dL 2.3 Total Bilirubin (0.2-1.0) mg/dL 0.5 AST (15-37) U/L 17 ALT (14-59) U/L 18 Alkaline Phosphatase (46-116) U/L 88 Total Protein (6.4-8.2) g/dL 9.0 H Albumin (3.4-5.0) g/dL 4.8 COVID-19 Source SARS-CoV-2 (PCR) (Negative) Influenza Type A (PCR) (Negative) Influenza Type B (PCR) (Negative) RSV (PCR) (Negative) Range/Units 04/04/22 16:28 WBC (4.4-10.8) 10^3/uL RBC (3.93-5.22) 10^6/uL Hgb (11.2-15.7) g/dL Hct (36.0-46.0) % MCV (80-95) fL MCH (27.0-33.0) pg MCHC (32.0-36.0) % RDW (11.7-14.6) % Plt Count (130-400) 10^3/uL MPV (8.0-11.0) fL Immature Gran % Neutrophils % Lymphocytes % Monocytes % Eosinophils % Basophils % Nucleated RBC % (0.0-0.3) % Absolute Neutrophils (1.2-6.7) 10^3/uL Absolute Lymphocytes (1.2-3.4) 10^3/uL Absolute Monocytes (0.1-0.8) 10^3/uL Absolute Eosinophils (0.0-0.7) 10^3/uL Absolute Basophils (0.0-0.2) 10^3/uL Sodium (136-145) mmol/L Potassium (3.5-5.1) mmol/L Chloride (98-107) mmol/L Carbon Dioxide (21.0-32.0) mmol/L Anion Gap (3-11) mmol/L BUN (7-18) mg/dL Creatinine (0.55-1.02) mg/dL Est GFR (CKD-EPI 2020) (mL/min/1.73m2) Glucose (74-106) mg/dL Calcium (8.5-10.1) mg/dL Magnesium (1.8-2.4) mg/dL Total Bilirubin (0.2-1.0) mg/dL AST (15-37) U/L ALT (14-59) U/L Alkaline Phosphatase (46-116) U/L Total Protein (6.4-8.2) g/dL Albumin (3.4-5.0) g/dL COVID-19 Source Nasopharynx SARS-CoV-2 (PCR) (Negative) Negative Influenza Type A (PCR) (Negative) Negative Influenza Type B (PCR) (Negative) Negative RSV (PCR) (Negative) Negative ECG Data Attestation: I personally reviewed and interpreted this ECG (s) as follows: Interpretation: rate of 61, sinus, no stemi. HPI General Mode of arrival: ambulatory. Date/Time Provider Initiated Documentation: 04/04/22 15:56. Limitations to Documentation: no limitations. Information obtained by: patient. HPI Narrative: Patient is a 46-year-old female with a history of anxiety, depression, irritable bowel syndrome, GERD, ADHD, fibromyalgia who presents for dizziness, nausea and vomiting for the past few days. Patient describes the dizziness as a spinning sensation. She states she vomited a few times today which is mainly bile. She states the dizziness is worse with head movement. She also states she has had ongoing issues for several years related to her diet which is caused weight loss and for which she has a scheduled EGD and colonoscopy with [facility] next month. Patient states she had a headache earlier today but states this is now resolved. She states she has been tensing up with her dizziness and nausea and now has bilateral lower neck and upper back pain. She denies any known fever, chest pain, difficulty breathing, abdominal pain. Related Data Home Medications Medication Instructions Recorded Confirmed albuterol sulfate 90 mcg/actuation 2 inh inhalation Q4H PRN 11/04/14 03/01/22 aerosol inhaler (ProAir HFA) acetaminophen 500 mg tablet 1,000 mg PO PRN PRN 05/30/17 03/01/22 (Tylenol Extra Strength) cholecalciferol (vitamin D3) 50 2,000 unit PO DAILY 07/07/18 03/01/22 mcg (2,000 unit) capsule dextroamphetamine-amphetamine 20 20 mg PO DAILY 07/07/18 06/10/20 mg tablet (Adderall) meclizine 12.5 mg tablet 12.5 mg PO TID PRN dizziness #14 04/04/22 tabs ondansetron 4 mg disintegrating 4 mg PO TID PRN nausea and 04/04/22 tablet vomiting #6 tabs Previous Rx's Medication Instructions Recorded meclizine 12.5 mg tablet 12.5 mg PO TID PRN dizziness #14 04/04/22 tabs ondansetron 4 mg disintegrating 4 mg PO TID PRN nausea and 04/04/22 tablet vomiting #6 tabs Allergies Allergy/AdvReac Type Severity Reaction Status Date / Time dicyclomine Allergy Severe Verified 06/10/20 01:15 Sulfa (Sulfonamide Allergy Severe Skin Rash Verified 06/10/20 01:15 Antibiotics) Macrolide Antibiotics Allergy Intermediate Verified 06/10/20 01:15 azithromycin [From Zithromax] Allergy Unknown Verified 06/10/20 01:15 codeine Allergy Unknown Verified 06/10/20 01:15 sulfur dioxide Allergy Unknown Verified 06/10/20 01:15 erythromycin base Allergy Verified 06/10/20 01:15 ibuprofen Allergy Verified 06/10/20 01:15 tramadol Allergy Verified 06/10/20 01:15 doxycycline AdvReac Mild Nausea Unverified 06/10/20 01:15 Penicillins AdvReac Mild intestinal Verified 06/10/20 01:15 cramping General Stated Complaint: GenMedical GILLIAN: 3 Review of Systems All systems reviewed & are unremarkable except as noted in HPI and below Constitutional Constitutional: Reports as per HPI, Denies chills and Denies fever(s) Eyes Eyes: Denies blurry vision ENT Ears, Nose, Mouth, and Throat: Reports dizziness, Denies sore throat and Denies throat swelling Cardiovascular Cardiovascular: Denies chest pain and Denies dyspnea Respiratory Respiratory: Denies cough and Denies dyspnea Gastrointestinal Gastrointestinal: Denies abdominal pain, Denies diarrhea, Reports nausea and Reports vomiting Genitourinary Genitourinary: Denies hematuria and Denies dysuria Musculoskeletal Musculoskeletal: Denies back pain and Denies numbness Integumentary/Breasts Skin/Breast: Denies lesions and Denies rash Neurologic Neurologic: Reports dizziness, Denies localized weakness and Denies numbness Allergic/Immunologic Allergic/Immunologic: Denies throat swelling PFSH All Active Problems (Updated 04/04/22 @ 19:47 by Haylee Dubois DO) Abdominal wall cellulitis (Acute) Vertigo (Acute) Dysfunction of right eustachian tube (Acute) Environmental allergies (Acute) Oral mass (Acute) Migraine headache with aura (Acute) Gait abnormality (Acute) Cervical radiculopathy (Acute) Pelvic pain (Chronic) Flank pain (Acute) Carpal tunnel syndrome (Acute 11/05/12) Dysmenorrhea (Acute 12/07/14) Medical History (Updated 04/04/22 @ 19:47 by Haylee Dubois DO) ADHD Anxiety Asthma Carpal tunnel syndrome Cervical radiculopathy Colitis Depression Dysmenorrhea Fibromyalgia Gastroesophageal reflux disease IBS (irritable bowel syndrome) Lipoma of abdominal wall Neck pain Tobacco abuse Surgical History section x4 Ligation of fallopian tube Family History Other Diabetes Fibromyalgia Heart disease Social History Smoking/Tobacco Use Status: Current every day Smoking risk assessment performed?: Yes Alcohol Intake: current Alcohol Intake frequency: holidays/special occasions only Drug use: Occasionally Substance use type: marijuana Household members: children Housing: apartment Number of Children: 4 current occupation: disabled What is your relationship status?: never Panel score (0-1 are the most socially isolated patients): 0 What type of physical activity do you participate in: none Do you feel safe at home: Yes Do you feel safe in your relationship?: Yes Exam Const General: cooperative, no acute distress and anxious Orientation: alert, awake and oriented x3 HENMT Head: normal to inspection Face and sinus: normal facial exam Eyes General: appearance normal, both eyes and all related structures Pupils: PERRL EOM: EOM intact bilaterally and nystagmus (horizontal) Neck Neck: normal visual inspection and No submandibular swelling Lymphatic: no lymphadenopathy noted Chest Chest: normal inspection of the chest and no tenderness Resp Effort & Inspection: normal respiratory effort and able to speak in complete sentences Auscultation: clear to auscultation bilaterally Cardio Rate: regular rate Rhythm: regular rhythm GI Inspection: normal to inspection Palpation: soft, not firm, not rigid and nontender Auscultation: normal bowel sounds Skin General skin exam: no rashes or lesions noted Neuro General: patient alert, patient awake, patient oriented x3, no meningeal signs and no focal motor deficits Cranial Nerves: nystagmus (horizontal) horizontal Cognition: normal cognition Speech: speech normal Motor: muscle tone normal throughout, strength 5/5 throughout and no movement abnormalities noted Sensory Exam: no sensory deficits noted Extrem General: normal to inspection, full ROM, capillary refill normal, no calf tenderness bilaterally and no edema Psych Appearance: grossly normal Mental Status: mental status grossly normal Speech and Movement: speech and movement normal Affect: normal affect Course Vital Signs Vital signs: Vital Signs Temperature 97.7 F 04/04/22 16:04 Pulse 66 04/04/22 16:04 Respiratory Rate 20 04/04/22 16:04 Blood Pressure 145/96 H 04/04/22 16:04 Pulse Oximetry 99 04/04/22 16:04 Temperature 97.7 F 04/04/22 16:04 Temperature Source Tympanic 04/04/22 16:04 Pulse 66 04/04/22 16:04 Respiratory Rate 20 04/04/22 16:04 Respiratory Effort 04/04/22 16:35 Blood Pressure 145/96 H 04/04/22 16:04 Blood Pressure Position Sitting 04/04/22 16:04 Pulse Oximetry 99 04/04/22 16:04 Oxygen Delivery Method Room Air 04/04/22 16:04 Oxygen Flow Rate 0 04/04/22 16:04 Pain Level 6 04/04/22 16:04 Lab/Test Results Lab/Test Results: Laboratory Tests Range/Units 04/04/22 04/04/22 04/04/22 16:24 16:24 16:28 WBC (4.4-10.8) 10^3/uL 14.23 H RBC (3.93-5.22) 10^6/uL 5.94 H Hgb (11.2-15.7) g/dL 17.4 H Hct (36.0-46.0) % 50.8 H MCV (80-95) fL 86 MCH (27.0-33.0) pg 29.3 MCHC (32.0-36.0) % 34.3 RDW (11.7-14.6) % 12.5 Plt Count (130-400) 10^3/uL 467 H MPV (8.0-11.0) fL 9.0 Immature Gran % 0.3 Neutrophils % 79.8 Lymphocytes % 11.9 Monocytes % 6.7 Eosinophils % 0.8 Basophils % 0.5 Nucleated RBC % (0.0-0.3) % 0.0 Absolute Neutrophils (1.2-6.7) 10^3/uL 11.36 H Absolute Lymphocytes (1.2-3.4) 10^3/uL 1.69 Absolute Monocytes (0.1-0.8) 10^3/uL 0.95 H Absolute Eosinophils (0.0-0.7) 10^3/uL 0.11 Absolute Basophils (0.0-0.2) 10^3/uL 0.07 Sodium (136-145) mmol/L 136 Potassium (3.5-5.1) mmol/L 3.8 Chloride (98-107) mmol/L 102 Carbon Dioxide (21.0-32.0) mmol/L 22.2 Anion Gap (3-11) mmol/L 11.8 H BUN (7-18) mg/dL 9 Creatinine (0.55-1.02) mg/dL 1.1 H Est GFR (CKD-EPI 2020) (mL/min/1.73m2) 63.15 Glucose (74-106) mg/dL 118 H Calcium (8.5-10.1) mg/dL 9.5 Total Bilirubin (0.2-1.0) mg/dL 0.5 AST (15-37) U/L 17 ALT (14-59) U/L 18 Alkaline Phosphatase (46-116) U/L 88 Total Protein (6.4-8.2) g/dL 9.0 H Albumin (3.4-5.0) g/dL 4.8 COVID-19 Source Nasopharynx SARS-CoV-2 (PCR) (Negative) Negative Influenza Type A (PCR) (Negative) Negative Influenza Type B (PCR) (Negative) Negative RSV (PCR) (Negative) Negative POC- Test(urine) Negative
[2022-04-04] MEDS: ACETAMINOPHEN 1,000 MG/100 ML BTL 400 MG IVPB (17:22)
[2022-04-04] MEDS: Meclizine 25 MG TAB PO (17:24)
[2022-04-04] MEDS: diazePAM 5 MG TAB PO (17:24)
[2022-04-04] MEDS: Ondansetron 4 MG/2 ML VIAL IVP (17:25)
[2022-04-04 17:31] LABS: Magnesium 2.3 mg/dL (1.8-2.4)
[2022-04-04 19:48] VITALS: BP 131/91; PULSE 61; RESP 20; O2SAT 96
[2022-04-04] MEDS: Meclizine 12.5 MG TAB 25 MG PO (20:14)
[2022-04-04] MEDS: Ondansetron O.D.T. 4 MG TABEF, 3 TABS/BTL PO (20:14)
[2022-04-05 02:50] VITALS: RESP 15
--- NOTE | 2022-04-06 13:56 | NUR.NOTE ---
Nursing Note:Pt called letting us know that [facility] did not receive the prescription for her zofran. Verified this with [facility] in [facility]- gave verbal prescription per discharge order.
== END 2022-04-04 20:23 | disposition home or self-care (01) ==
PROVIDERS: Emergency Provider Physician Assistant; PCP Family Medicine
DX: R42 Dizziness and giddiness (principal); R11.2 Nausea with vomiting, unspecified; H55.00 Unspecified nystagmus; D72.829 Elevated white blood cell count, unspecified; J45.909 Unspecified asthma, uncomplicated; Z87.19 Personal history of other diseases of the digestive system; Z20.822 Contact with and (suspected) exposure to COVID-19
CPT/HCPCS: 80053; 81025; 87637; 93005; 96374; 96375; 99284; 83735; 85025; 93010; J0131; J2405

== ENCOUNTER 2022-04-21 15:13 | Emergency (ER) | payer MEDICAID, SELFPAY ==
[2022-04-21] VITALS (19 sets, daily range): BP systolic 107–157; BP diastolic 77–109; PULSE 66–100; RESP 11–31; TEMP 36.3; O2SAT 94–100
--- NOTE | 2022-04-21 15:15 | RT.EKG_ITS ---
APPROVED REPORT Exam: Resting ECG Reason for Exam: chest pressure Patient Location: E HR:71 bpm ECG Measurements Heart Rate 71 AXIS NM 143 P 49 QRSd 85 QRS 56 QT 402 T 61 QTc 437 Conclusion Sinus rhythm...normal P axis, V-rate 60- 99
[2022-04-21 15:45] LABS: Abs Immature Grans 0.04 10^3/uL (0.0-0.06); Absolute Basophil Count 0.03 10^3/uL (0.0-0.2); Absolute Lymphocyte Count 1.05 10^3/uL (1.2-3.4); Absolute Monocyte Count 0.51 10^3/uL (0.1-0.8); Basophils % 0.3; Eosinophils % 0.6; HCT 44.4 % (36.0-46.0); Immature Grans % 0.4; Lymphocytes % 9.7; MCH 29.5 pg (27.0-33.0); MCHC 33.8 % (32.0-36.0); MCV 87 fL (80-95); MPV 8.8 fL (8.0-11.0); Monocytes % 4.7; Neutrophils % 84.3; Platelet Count 375 10^3/uL (130-400); RBC 5.08 10^6/uL (3.93-5.22); RDW 12.8 % (11.7-14.6); RDW-SD 41.2 fL; WBC 10.86 10^3/uL (4.4-10.8)
[2022-04-21 15:46] LABS: Bilirubin Negative (Negative); Blood Trace-lysed (Negative); Clarity Clear (Clear); Glucose Negative (Negative); Ketones Negative (Negative); Leukocyte Esterase Negative (Negative); Nitrite Negative (Negative); Urobilinogen 0.2 EU/dL (Up TO 0.2); pH 6.5 (5-8)
[2022-04-21 15:47] LABS: Absolute Eosinophil Count 0.07 10^3/uL (0.0-0.7); Absolute Neutrophil Count 9.15 10^3/uL (1.2-6.7)
[2022-04-21 15:53] LABS: Epithelial Cells Few HPF (Negative); RBC 0-2 HPF (0-2); WBC 0-2 HPF (0-5)
[2022-04-21 15:54] LABS: Bacteria Negative HPF (Negative); C & S Indicated? No; Casts Negative LPF (Negative); Crystals Negative HPF (Negative); Mucus Negative (Negative)
[2022-04-21 16:01] LABS: ALT 27 U/L (14-59); AST 14 U/L (15-37); Albumin 3.9 g/dL (3.4-5.0); Alkaline Phosphatase 86 U/L (46-116); Anion Gap 9.5 mmol/L (3-11); BUN 10 mg/dL (7-18); Bilirubin, Total 0.3 mg/dL (0.2-1.0); CO2 23.5 mmol/L (21.0-32.0); CREATININE 1.1 mg/dL (0.55-1.02); Chloride 103 mmol/L (98-107); Estimated GFR 63.15 (mL/min/1.73m2); Glucose 121 mg/dL (74-106); Lipase 115 U/L (73-393); Sodium 136 mmol/L (136-145); Total Protein 7.8 g/dL (6.4-8.2)
[2022-04-21] MEDS: PANTOPRAZOLE 80 MG in Normal Saline 100 ML 10 MG IV (16:27)
[2022-04-21] MEDS: Famotidine 20 MG/2 ML VIAL IVP (16:28)
[2022-04-21 16:34] LABS: Troponin I < 50 ng/L (<or=60)
--- NOTE | 2022-04-21 17:28 | W.ED.GENAD ---
Discharge Plan Disposition Patient Disposition: Home Condition: Improving Discharge Details Clinical Impression: Abdominal pain Primary Care Provider: Leena Joiner ED Provider: Giovanni Falk Home Meds and New Rx's Prescriptions: Continued cholecalciferol (vitamin D3) 2,000 unit capsule 2,000 unit PO DAILY pantoprazole 40 mg tablet,delayed release (DR/EC) 40 mg PO DAILY sucralfate [Carafate] 1 gram tablet 1 g PO QID PRN dextroamphetamine-amphetamine [Adderall] 20 mg tablet 20 mg PO DAILY albuterol sulfate [ProAir HFA] 200 PUFF HFA aerosol inhaler 2 inh Inhalation Q4H PRN acetaminophen [Tylenol Extra Strength] 500 MG tablet 1,000 mg PO PRN PRN meclizine 12.5 mg tablet 12.5 mg PO TID PRN (Reason: dizziness) Qty: 14 0RF ondansetron 4 mg tablet,disintegrating 4 mg PO TID PRN (Reason: nausea and vomiting) Qty: 6 0RF Discharge Instructions Instructions: Abdominal Pain (ED) Additional Instructions: Work-up today does not reveal any obvious emergent process. You have already had 2 CTs for the similar symptoms and I do not believe obtaining a third CT today is indicated. I recommend adding on additional [id number] medications for symptomatic control such as Gas-X, Mylanta, Pepcid. Clear liquid diet, advance as tolerated. Please watch for new or worsening symptoms and return to the ER for any concerns. Please contact your GI team tomorrow to make them aware of your ongoing symptoms and need for outpatient reevaluation hopefully sooner than already scheduled on May 16. Discharge Data Discharge Date/Time-TO BE ENTERED AT DEPARTURE: 04/21/22 17:49 Medical Decision Making 46-year-old female reports acute on chronic abdominal pain that began late last night early this morning. Clinically she appears well, nontoxic, but is somewhat anxious. Abdomen has mild epigastric discomfort but certainly nonsurgical in nature. Patient has had 2 CT studies for this pain in the past. This appears to be GI in nature, will obtain IV access, routine screening laboratory values but given her chest pressure we will also obtain EKG and a single troponin given the duration of her symptoms. Extremely low suspicion for cardiac etiology. Patient took her 40 of pantoprazole this morning earlier than usual. Will give a GI cocktail, IV Pepcid and Protonix. Patient reports that she is very sensitive to medications. States that her symptoms nearly resolved with a GI cocktail and IV Pepcid but after administering the Protonix she felt as though her bloating got worse. Minimal nonspecific leukocytosis of 10.86. When reviewing previous laboratory values, patient has had leukocytosis higher than this. No evidence of anemia or thrombocytopenia. Her electrolytes are unremarkable. Creatinine 1.1 with a GFR of 63.15. Total bili 0.3 AST 14 ALT 27 alk phosphatase 86 troponin less than 50 lipase 115. Urinalysis reveals trace lysed blood otherwise unremarkable. Work-up does not reveal any obvious emergent process. Patient states that overall she feels improvement when compared to her initial presentation but feels as though the Protonix made her symptoms worse. She reports that she feels very bloated. We discussed that she could add on [id number] Pepcid, use Mylanta, Gas-X, etc. for symptomatic relief. No clear indication to obtain advanced imaging such as CT as this has been done twice in the past. Patient is to contact her GI team tomorrow to make them aware of her ongoing symptoms and see if she can be seen sooner than already scheduled May 16. Standard discharge and return precautions were provided. Patient understands, is agreeable to this plan, and has no additional questions or concerns upon discharge. This documentation was generated using [email or web address] dictation system, please disregard any oddities of phrase or misspellings. Medical Records Medical records reviewed: Yes I reviewed the patient's medical records. Lab Data Lab results reviewed: Yes I reviewed the patient's lab results. Labs: Laboratory Tests Range/Units 04/21/22 04/21/22 04/21/22 15:35 15:35 15:35 WBC (4.4-10.8) 10^3/uL 10.86 H RBC (3.93-5.22) 10^6/uL 5.08 Hgb (11.2-15.7) g/dL 15.0 Hct (36.0-46.0) % 44.4 MCV (80-95) fL 87 MCH (27.0-33.0) pg 29.5 MCHC (32.0-36.0) % 33.8 RDW (11.7-14.6) % 12.8 Plt Count (130-400) 10^3/uL 375 MPV (8.0-11.0) fL 8.8 Immature Gran % 0.4 Neutrophils % 84.3 Lymphocytes % 9.7 Monocytes % 4.7 Eosinophils % 0.6 Basophils % 0.3 Nucleated RBC % (0.0-0.3) % 0.0 Absolute Neutrophils (1.2-6.7) 10^3/uL 9.15 H Absolute Lymphocytes (1.2-3.4) 10^3/uL 1.05 L Absolute Monocytes (0.1-0.8) 10^3/uL 0.51 Absolute Eosinophils (0.0-0.7) 10^3/uL 0.07 Absolute Basophils (0.0-0.2) 10^3/uL 0.03 Sodium (136-145) mmol/L 136 Potassium (3.5-5.1) mmol/L 4.0 Chloride (98-107) mmol/L 103 Carbon Dioxide (21.0-32.0) mmol/L 23.5 Anion Gap (3-11) mmol/L 9.5 BUN (7-18) mg/dL 10 Creatinine (0.55-1.02) mg/dL 1.1 H Est GFR (CKD-EPI 2020) (mL/min/1.73m2) 63.15 Glucose (74-106) mg/dL 121 H Calcium (8.5-10.1) mg/dL 9.0 Total Bilirubin (0.2-1.0) mg/dL 0.3 AST (15-37) U/L 14 L ALT (14-59) U/L 27 Alkaline Phosphatase (46-116) U/L 86 Troponin I (<or=60) ng/L Total Protein (6.4-8.2) g/dL 7.8 Albumin (3.4-5.0) g/dL 3.9 Lipase (73-393) U/L 115 Urine Color (Yellow) Yellow Urine Clarity (Clear) Clear Urine pH (5-8) 6.5 Ur Specific [place] (1.005-1.025) 1.010 Urine Protein (Negative) mg/dL Negative Urine Ketones (Negative) mg/dL Negative Urine Blood (Negative) Trace-lysed H Urine Nitrite (Negative) Negative Urine Bilirubin (Negative) Negative Urine Urobilinogen (Up TO 0.2) EU/dL 0.2 Ur Leukocyte Esterase (Negative) Negative Urine RBC (0-2) HPF 0-2 Urine WBC (0-5) HPF 0-2 Ur Epithelial Cells (Negative) HPF Few Urine Crystals (Negative) HPF Negative Urine Bacteria (Negative) HPF Negative Urine Casts (Negative) LPF Negative Urine Mucus (Negative) Negative Ur Culture Indicated? No Urine Glucose (Negative) mg/dL Negative Range/Units 04/21/22 15:35 WBC (4.4-10.8) 10^3/uL RBC (3.93-5.22) 10^6/uL Hgb (11.2-15.7) g/dL Hct (36.0-46.0) % MCV (80-95) fL MCH (27.0-33.0) pg MCHC (32.0-36.0) % RDW (11.7-14.6) % Plt Count (130-400) 10^3/uL MPV (8.0-11.0) fL Immature Gran % Neutrophils % Lymphocytes % Monocytes % Eosinophils % Basophils % Nucleated RBC % (0.0-0.3) % Absolute Neutrophils (1.2-6.7) 10^3/uL Absolute Lymphocytes (1.2-3.4) 10^3/uL Absolute Monocytes (0.1-0.8) 10^3/uL Absolute Eosinophils (0.0-0.7) 10^3/uL Absolute Basophils (0.0-0.2) 10^3/uL Sodium (136-145) mmol/L Potassium (3.5-5.1) mmol/L Chloride (98-107) mmol/L Carbon Dioxide (21.0-32.0) mmol/L Anion Gap (3-11) mmol/L BUN (7-18) mg/dL Creatinine (0.55-1.02) mg/dL Est GFR (CKD-EPI 2020) (mL/min/1.73m2) Glucose (74-106) mg/dL Calcium (8.5-10.1) mg/dL Total Bilirubin (0.2-1.0) mg/dL AST (15-37) U/L ALT (14-59) U/L Alkaline Phosphatase (46-116) U/L Troponin I (<or=60) ng/L < 50 Total Protein (6.4-8.2) g/dL Albumin (3.4-5.0) g/dL Lipase (73-393) U/L Urine Color (Yellow) Urine Clarity (Clear) Urine pH (5-8) Ur Specific [place] (1.005-1.025) Urine Protein (Negative) mg/dL Urine Ketones (Negative) mg/dL Urine Blood (Negative) Urine Nitrite (Negative) Urine Bilirubin (Negative) Urine Urobilinogen (Up TO 0.2) EU/dL Ur Leukocyte Esterase (Negative) Urine RBC (0-2) HPF Urine WBC (0-5) HPF Ur Epithelial Cells (Negative) HPF Urine Crystals (Negative) HPF Urine Bacteria (Negative) HPF Urine Casts (Negative) LPF Urine Mucus (Negative) Ur Culture Indicated? Urine Glucose (Negative) mg/dL ECG Data Attestation: I personally reviewed and interpreted this ECG (s) as follows: Interpretation: Sinus rhythm, ventricular rate of 71, no STEMI. HPI General Mode of arrival: ambulatory. Date/Time Provider Initiated Documentation: 04/21/22 15:25. Limitations to Documentation: no limitations. Information obtained by: patient. HPI Narrative: This is a 46-year-old female with a past medical history of intermittent abdominal pain since February 2022, anxiety and depression, GERD, current smoker, cholecystectomy, presenting for abdominal pain similar to her previous episodes that began late last night-early this morning. Associated with moderate epigastric pain, a bloating feeling, and reporting being gassy. Mild nausea but no vomiting. Reports decreased appetite. Denies fever, shortness of breath, change in bowel or bladder function. She does report the pain in her epigastrium radiates into her back as well as causes mild chest pressure. She states that she has been seen for this multiple times and is scheduled to be seen by GI in [place] for endoscopy and colonoscopy on May 16. She reports taking her medications as directed. Denies alcohol intake. Related Data Home Medications Medication Instructions Recorded Confirmed albuterol sulfate 90 mcg/actuation 2 inh inhalation Q4H PRN 11/04/14 04/21/22 aerosol inhaler (ProAir HFA) acetaminophen 500 mg tablet 1,000 mg PO PRN PRN 05/30/17 04/21/22 (Tylenol Extra Strength) cholecalciferol (vitamin D3) 50 2,000 unit PO DAILY 07/07/18 04/21/22 mcg (2,000 unit) capsule meclizine 12.5 mg tablet 12.5 mg PO TID PRN dizziness #14 04/04/22 04/21/22 tabs ondansetron 4 mg disintegrating 4 mg PO TID PRN nausea and 04/04/22 04/21/22 tablet vomiting #6 tabs dextroamphetamine-amphetamine 20 20 mg PO DAILY 04/18/22 04/21/22 mg tablet (Adderall) pantoprazole 40 mg tablet,delayed 40 mg PO DAILY 04/18/22 04/21/22 release sucralfate 1 gram tablet (Carafate) 1 g PO QID PRN 04/18/22 04/21/22 Previous Rx's Medication Instructions Recorded meclizine 12.5 mg tablet 12.5 mg PO TID PRN dizziness #14 04/04/22 tabs ondansetron 4 mg disintegrating 4 mg PO TID PRN nausea and 04/04/22 tablet vomiting #6 tabs Allergies Allergy/AdvReac Type Severity Reaction Status Date / Time dicyclomine Allergy Severe Verified 04/21/22 15:23 Sulfa (Sulfonamide Allergy Severe Skin Rash Verified 04/21/22 15:23 Antibiotics) Macrolide Antibiotics Allergy Intermediate Verified 04/21/22 15:23 azithromycin [From Zithromax] Allergy Unknown Verified 04/21/22 15:23 cetirizine Allergy Unknown Verified 04/21/22 15:23 codeine Allergy Unknown Verified 04/21/22 15:23 sulfur dioxide Allergy Unknown Verified 04/21/22 15:23 erythromycin base Allergy Verified 04/21/22 15:23 ibuprofen Allergy Verified 04/21/22 15:23 tramadol Allergy Verified 04/21/22 15:23 doxycycline AdvReac Mild Nausea Unverified 04/21/22 15:23 Penicillins AdvReac Mild intestinal Verified 04/21/22 15:23 cramping General Stated Complaint: Abd Prob GILLIAN: 2 Review of Systems Constitutional Constitutional: Denies fever(s) ENT Ears, Nose, Mouth, and Throat: Denies neck pain Cardiovascular Cardiovascular: Reports chest pain and Denies dyspnea Respiratory Respiratory: Denies cough and Denies dyspnea Gastrointestinal Gastrointestinal: Reports abdominal pain, Denies constipation, Denies diarrhea, Reports nausea and Denies vomiting Genitourinary Genitourinary: Denies dysuria Musculoskeletal Musculoskeletal: Reports back pain and Denies neck pain Integumentary/Breasts Skin/Breast: Denies rash Psychiatric Psychiatric: Reports anxiety PFSH All Active Problems Abdominal pain (Acute) Abdominal wall cellulitis (Acute) Vertigo (Acute) Dysfunction of right eustachian tube (Acute) Environmental allergies (Acute) Oral mass (Acute) Migraine headache with aura (Acute) Gait abnormality (Acute) Cervical radiculopathy (Acute) Pelvic pain (Chronic) Flank pain (Acute) Carpal tunnel syndrome (Acute 11/05/12) Dysmenorrhea (Acute 12/07/14) Medical History ADHD Allergic rhinitis Anxiety Anxiety with depression Asthma Bilateral carpal tunnel syndrome Carpal tunnel syndrome Cervical radiculopathy Colitis Depression Dysmenorrhea Fibromyalgia Foot pain Gastroesophageal reflux disease Headache Hematuria History of IBS Hot flashes IBS (irritable bowel syndrome) Lipoma of abdominal wall Marijuana use Menorrhagia Migraine Muscle weakness Neck pain Overweight Tobacco abuse Vesicular skin lesions Vitamin D deficiency Surgical History section x4 Ligation of fallopian tube Family History Other Diabetes Fibromyalgia Heart disease Social History Smoking/Tobacco Use Status: Current every day Smoking risk assessment performed?: Yes Alcohol Intake: former Drug use: Daily Substance use type: marijuana Details: patient states this usually helpw with stomach pain. Household members: children Housing: apartment Number of Children: 4 current occupation: disabled What is your relationship status?: never Panel score (0-1 are the most socially isolated patients): 0 What type of physical activity do you participate in: none Do you feel safe at home: Yes Do you feel safe in your relationship?: Yes Exam Const General: cooperative, healthy appearing, comfortable, no acute distress and anxious Orientation: alert and awake HENMT Head: normal to inspection, normocephalic and atraumatic Face and sinus: normal facial exam Mouth: moist mucous membranes Eyes General: appearance normal, both eyes and all related structures Conjunctivae: conjunctivae normal Neck Neck: normal visual inspection, full ROM, no meningeal signs, trachea midline and supple Resp Effort & Inspection: normal respiratory effort and able to speak in complete sentences Auscultation: clear to auscultation bilaterally Cardio Rate: regular rate Rhythm: regular rhythm GI Inspection: normal to inspection Palpation: soft, not firm, no guarding, no pulsatile masses and tender in the epigastrum (Mild); not at McBurney's point, Abarca's sign negative and with no rebound tenderness Auscultation: normal bowel sounds Back/Spine/Pelvis Back: no CVA tenderness and No back tenderness Skin General skin exam: no rashes or lesions noted Neuro General: patient alert, patient awake, moves all extremities and no focal motor deficits Cognition: normal cognition Speech: speech normal Gait: normal gait Sensory Exam: no sensory deficits noted Psych Appearance: grossly normal Mental Status: mental status grossly normal Course Vital Signs Vital signs: Vital Signs Temperature 36.3 C L 04/21/22 15:18 Pulse 100 H 04/21/22 15:18 Respiratory Rate 20 04/21/22 15:18 Blood Pressure 157/109 H 04/21/22 15:18 Pulse Oximetry 99 04/21/22 15:18 Temperature 36.3 C L 04/21/22 15:18 Temperature Source Skin 04/21/22 15:18 Pulse 100 H 04/21/22 15:18 Respiratory Rate 20 04/21/22 15:18 Respiratory Effort Non-Labored 04/21/22 15:27 Blood Pressure 157/109 H 04/21/22 15:18 Blood Pressure Position Sitting 04/21/22 15:18 Pulse Oximetry 99 04/21/22 15:18 Oxygen Delivery Method Room Air 04/21/22 15:18 Oxygen Flow Rate 0 04/21/22 15:18 Pain Level 10 04/21/22 15:18 Lab/Test Results Lab/Test Results: Laboratory Tests Range/Units 04/21/22 04/21/22 04/21/22 15:35 15:35 15:35 WBC (4.4-10.8) 10^3/uL 10.86 H RBC (3.93-5.22) 10^6/uL 5.08 Hgb (11.2-15.7) g/dL 15.0 Hct (36.0-46.0) % 44.4 MCV (80-95) fL 87 MCH (27.0-33.0) pg 29.5 MCHC (32.0-36.0) % 33.8 RDW (11.7-14.6) % 12.8 Plt Count (130-400) 10^3/uL 375 MPV (8.0-11.0) fL 8.8 Immature Gran % 0.4 Neutrophils % 84.3 Lymphocytes % 9.7 Monocytes % 4.7 Eosinophils % 0.6 Basophils % 0.3 Nucleated RBC % (0.0-0.3) % 0.0 Absolute Neutrophils (1.2-6.7) 10^3/uL 9.15 H Absolute Lymphocytes (1.2-3.4) 10^3/uL 1.05 L Absolute Monocytes (0.1-0.8) 10^3/uL 0.51 Absolute Eosinophils (0.0-0.7) 10^3/uL 0.07 Absolute Basophils (0.0-0.2) 10^3/uL 0.03 Sodium (136-145) mmol/L 136 Potassium (3.5-5.1) mmol/L 4.0 Chloride (98-107) mmol/L 103 Carbon Dioxide (21.0-32.0) mmol/L 23.5 Anion Gap (3-11) mmol/L 9.5 BUN (7-18) mg/dL 10 Creatinine (0.55-1.02) mg/dL 1.1 H Est GFR (CKD-EPI 2020) (mL/min/1.73m2) 63.15 Glucose (74-106) mg/dL 121 H Calcium (8.5-10.1) mg/dL 9.0 Total Bilirubin (0.2-1.0) mg/dL 0.3 AST (15-37) U/L 14 L ALT (14-59) U/L 27 Alkaline Phosphatase (46-116) U/L 86 Troponin I (<or=60) ng/L Total Protein (6.4-8.2) g/dL 7.8 Albumin (3.4-5.0) g/dL 3.9 Lipase (73-393) U/L 115 Urine Color (Yellow) Yellow Urine Clarity (Clear) Clear Urine pH (5-8) 6.5 Ur Specific [place] (1.005-1.025) 1.010 Urine Protein (Negative) mg/dL Negative Urine Ketones (Negative) mg/dL Negative Urine Blood (Negative) Trace-lysed H Urine Nitrite (Negative) Negative Urine Bilirubin (Negative) Negative Urine Urobilinogen (Up TO 0.2) EU/dL 0.2 Ur Leukocyte Esterase (Negative) Negative Urine RBC (0-2) HPF 0-2 Urine WBC (0-5) HPF 0-2 Ur Epithelial Cells (Negative) HPF Few Urine Crystals (Negative) HPF Negative Urine Bacteria (Negative) HPF Negative Urine Casts (Negative) LPF Negative Urine Mucus (Negative) Negative Ur Culture Indicated? No Urine Glucose (Negative) mg/dL Negative Range/Units 04/21/22 15:35 WBC (4.4-10.8) 10^3/uL RBC (3.93-5.22) 10^6/uL Hgb (11.2-15.7) g/dL Hct (36.0-46.0) % MCV (80-95) fL MCH (27.0-33.0) pg MCHC (32.0-36.0) % RDW (11.7-14.6) % Plt Count (130-400) 10^3/uL MPV (8.0-11.0) fL Immature Gran % Neutrophils % Lymphocytes % Monocytes % Eosinophils % Basophils % Nucleated RBC % (0.0-0.3) % Absolute Neutrophils (1.2-6.7) 10^3/uL Absolute Lymphocytes (1.2-3.4) 10^3/uL Absolute Monocytes (0.1-0.8) 10^3/uL Absolute Eosinophils (0.0-0.7) 10^3/uL Absolute Basophils (0.0-0.2) 10^3/uL Sodium (136-145) mmol/L Potassium (3.5-5.1) mmol/L Chloride (98-107) mmol/L Carbon Dioxide (21.0-32.0) mmol/L Anion Gap (3-11) mmol/L BUN (7-18) mg/dL Creatinine (0.55-1.02) mg/dL Est GFR (CKD-EPI 2020) (mL/min/1.73m2) Glucose (74-106) mg/dL Calcium (8.5-10.1) mg/dL Total Bilirubin (0.2-1.0) mg/dL AST (15-37) U/L ALT (14-59) U/L Alkaline Phosphatase (46-116) U/L Troponin I (<or=60) ng/L < 50 Total Protein (6.4-8.2) g/dL Albumin (3.4-5.0) g/dL Lipase (73-393) U/L Urine Color (Yellow) Urine Clarity (Clear) Urine pH (5-8) Ur Specific [place] (1.005-1.025) Urine Protein (Negative) mg/dL Urine Ketones (Negative) mg/dL Urine Blood (Negative) Urine Nitrite (Negative) Urine Bilirubin (Negative) Urine Urobilinogen (Up TO 0.2) EU/dL Ur Leukocyte Esterase (Negative) Urine RBC (0-2) HPF Urine WBC (0-5) HPF Ur Epithelial Cells (Negative) HPF Urine Crystals (Negative) HPF Urine Bacteria (Negative) HPF Urine Casts (Negative) LPF Urine Mucus (Negative) Ur Culture Indicated? Urine Glucose (Negative) mg/dL POC Urine Test Start: 04/21/22 15:27 Freq: Status: Complete Protocol: Document 04/21/22 15:27 ANNE-MARIE (Rec: 04/21/22 15:27 ANNE-MARIE [id number]) Test(Urine)-POC POC- Test(urine) Negative POC- Test(urine) Negative
== END 2022-04-21 17:49 | disposition home or self-care (01) ==
PROVIDERS: Emergency Provider Physician Assistant; PCP Family Medicine
DX: R10.13 Epigastric pain (principal); D72.829 Elevated white blood cell count, unspecified; F90.9 Attention-deficit hyperactivity disorder, unspecified type; J45.909 Unspecified asthma, uncomplicated
CPT/HCPCS: 36415; 80053; 81025; 83690; 93005; 96365; 96366; 96375; 99284; 81003; 81015; 84484; 85025; 93010

== ENCOUNTER 2023-05-02 15:27 | Outpatient (REF) | payer MEDICAID, SELFPAY ==
--- NOTE | 2023-05-02 13:00 | SKI_PTH ---
PATIENT: Elsie Coffman LOC: [facility] U#:[id number] AGE/SX: 47/F ROOM: RE05/02/[address]: Abdirashid Milton DO : 1975 BED: DIS: 05/02/2023 SPEC #: [id number] RECD: 05/02/23 17:48 STATUS: MIGUEL RECristhian #: [id number] EKATERINA: 05/02/23 13:[address]: Abdirashid Milton DEPT: Surgical Specimen RECD BY: Sonal Griggs ENTERED: 05/02/23 17:49 SP TYPE: MARILIN SNYDER DR: Leena Joiner Tissues: 1 - SKIN BIOPSY(SHAVE/PUNCH) 2 - SKIN BIOPSY(SHAVE/PUNCH) 3 - SKIN BIOPSY(SHAVE/PUNCH) Procedures: SKIN LEVEL 4 Comments: [id number]
== END 2023-05-02 15:28 | disposition home or self-care (01) ==
LOC: LBN 15:27
PROVIDERS: PCP Family Medicine; Visit Provider Otolaryngology Otolaryngology/Facial Plastic Surgery
DX: D22.39 Melanocytic nevi of other parts of face
CPT/HCPCS: 88305

== ENCOUNTER 2023-05-06 06:23 | Day surgery (SDC) | payer MEDICAID, SELFPAY ==
--- NOTE | 2023-05-06 05:05 | W.ANESPRE ---
General Info Date of Service Date Performed: 05/06/23 Height: 5 ft 3 in Weight: 80.286 kg Body Mass Index (BMI): 31.3 Surgical Procedure: Operation Date: 05/06/23 07:40 Proposed Procedure Side Surgeon p Wrist ECTR Right Wyatt Mcdowell MD Meds Allergies and Home Medications Allergies Allergy/AdvReac Type Severity Reaction Status Date / Time dicyclomine Allergy Severe Verified 05/06/23 06:32 Sulfa (Sulfonamide Allergy Severe Skin Rash Verified 05/06/23 06:32 Antibiotics) Macrolide Antibiotics Allergy Intermediate Verified 05/06/23 06:32 azithromycin [From Zithromax] Allergy Unknown Verified 05/06/23 06:32 cetirizine Allergy Unknown Verified 05/06/23 06:32 codeine Allergy Unknown Verified 05/06/23 06:32 sulfur dioxide Allergy Unknown Verified 05/06/23 06:32 erythromycin base Allergy Verified 05/06/23 06:32 ibuprofen Allergy Verified 05/06/23 06:32 tramadol Allergy Verified 05/06/23 06:32 doxycycline AdvReac Mild Nausea Unverified 05/06/23 06:32 Penicillins AdvReac Mild intestinal Verified 05/06/23 06:32 cramping Home Medication Medication Instructions Recorded cholecalciferol (vitamin D3) 50 2,000 unit PO DAILY 07/07/18 mcg (2,000 unit) capsule ondansetron 4 mg disintegrating 4 mg PO TID PRN nausea and 04/04/22 tablet vomiting #6 tabs pantoprazole 40 mg tablet,delayed 40 mg PO DAILY 04/18/22 release butalbital 25 mg-acetaminophen 325 2 tab PO Q4H PRN 08/15/22 mg tablet montelukast 10 mg tablet 10 mg PO DAILY 08/15/22 albuterol sulfate 90 mcg/actuation 2 puff inhalation Q6H PRN 02/04/23 aerosol inhaler (Ventolin HFA) dextroamphetamine-amphetamine ER 20 mg PO DAILY 02/04/23 20 mg 24hr capsule,extend release (Adderall XR) fluticasone propionate 110 2 puff inhalation BID 02/04/23 mcg/actuation HFA aerosol inhaler (Flovent HFA) meclizine 25 mg tablet 25 mg PO TID PRN 02/04/23 celecoxib 100 mg capsule 100 mg PO BID #60 caps 03/31/23 famotidine 20 mg tablet 20 mg PO DAILY 03/31/23 Current Visit Medications: Current Medications Generic Name Dose Route Start Last Admin Trade Name Fauzia PRN Reason Stop Dose Admin Ringer's Solution 1,000 mls @ 80 mls/hr 05/06/23 06:00 IV 05/06/23 23:59 INFUSION OLAYINKA Cefazolin Sodium/Dextrose 2 gm in 50 mls @ 100 mls/hr 05/06/23 06:00 Ancef Duplex IVPB 05/06/23 23:59 PREOP OLAYINKA IV Miscellaneous Supplies 1 each 05/06/23 06:00 Iv Access IV 05/06/23 23:59 DIRECTED OLAYINKA Sodium Chloride 0 ml 05/06/23 06:00 Normal Saline Flush 10 Ml Syr IV 05/06/23 23:59 PRN PRN Sodium Chloride 0 ml 05/06/23 06:00 Normal Saline 10 Ml Vial IJ 05/06/23 23:59 DIRECTED PRN Sterile Water 0 ml 05/06/23 06:00 Water,Injection,Sterile 10 Ml Vial IJ 05/06/23 23:59 DIRECTED PRN PFSH Active Problems Active Problems: Problem Status Onset Code Family history of skin cancer Z80.8 Carpal tunnel syndrome of right wrist G56.01 Vertigo R42 Abdominal wall cellulitis L03.311 Dysfunction of right eustachian tube H69.81 Environmental allergies Z91.09 Oral mass K13.79 Migraine headache with aura G43.109 Gait abnormality R26.9 Cervical radiculopathy M54.12 Pelvic pain R10.2 Flank pain R10.9 Carpal tunnel syndrome 11/05/12 G56.00 Dysmenorrhea 12/07/14 N94.6 Medical History Medical History Bilateral carpal tunnel syndrome Allergic rhinitis Vesicular skin lesions Hematuria Anxiety with depression History of IBS Muscle weakness Headache Hot flashes Vitamin D deficiency Marijuana use Menorrhagia Overweight Foot pain Migraine Asthma IBS (irritable bowel syndrome) Gastroesophageal reflux disease Neck pain ADHD Tobacco abuse Fibromyalgia Dysmenorrhea Depression Colitis Anxiety Cervical radiculopathy Carpal tunnel syndrome Lipoma of abdominal wall Surgical History Surgical History (Updated 05/02/23 @ 14:58 by Daren Caal) Hx of cholecystectomy Ligation of fallopian tube section x4 Tobacco Smoking/Tobacco Use Status: Current every day Tobacco Type: cigarettes Smoking cigarettes per day: 6 Alcohol Alcohol Intake: former Substance Use Substance use: Daily Substance use type: marijuana Details: patient states this usually help with stomach pain. Vital Signs and Lab Results Vital Signs Most Recent Vital Signs in EMR: Temp Pulse Resp BP Pulse Ox 36.3 C L 77 16 152/98 H 97 05/06/23 06:49 05/06/23 06:49 05/06/23 06:49 05/06/23 06:49 05/06/23 06:49 Lab Results Blood Type / Crossmatch: No Data to Display Complete Blood Count: No Data to Display Complete Metabolic Panel: No Data to Display Liver Function Panel: No Data to Display Coagulation Panel: No Data to Display Cardiac Panel: No Data to Display Arterial Blood Gas: No Data to Display Venous Blood Gas: No Data to Display Pancreas Panel: No Data to Display Thyroid Panel: No Data to Display Infectious Disease: No Data to Display Blood Cultures: No Data to Display Toxicology Panel: No Data to Display Panel: No Data to Display Imaging and Studies Imaging and Studies Study information below may be from another EMR and interpreted by another provider. Please see original notes in EMR for more complete details. EKG Summary: 05/06: sinus. Anesthesia Assessment and Plan Anesthesia History Personal History: No History of Anesthesia Complications Family History: No Family History of Anesthesia Complications Exercise Tolerance Exercise Tolerance: Metabolic Equivalents>4 Cardiac & Pulmonary Exam Cardiac Exam: Normal S1/S2 Heart Sounds Pulmonary Exam: Clear Bilateral Breath Sounds Implantable Cardiac Device Does patient have a Pacemaker or an ICD?: No Airway Exam Known Difficult Airway: No Mallampati Class: 3 Mouth Opening: Normal (> 3cm) Thyromental Distance: Greater than 3 cm Neck Range of Motion: Full ROM Neck Circumference: Normal Teeth Condition: Normal Dentition ASA Classification ASA Score: ASA 2 Emergency Case?: No NPO Status NPO Status: NPO Clears >2 hours, Solids >8 hours Status Status: Negative HCG Anesthesia Plan Resuscitation Status: Full Code Anesthesia Technique: General Anesthesia Airway Planned: Natural Airway Monitors Used: Standard Monitors Preoperative Comments:: 47 yo female for ECTR. Sig PMHx: asthma (albuterol, montelukast), GERD (pantoprazole), cervical radiculopathy/vertigo, migraines/headaches, anxiety/depression, adhd, smoker cannabis/tobacco.
[2023-05-06 06:49] VITALS: BP 152/98; PULSE 77; RESP 16; TEMP 36.3; O2SAT 97
[2023-05-06] MEDS: Lactated Ringers 1,000 ML 80 ML IV (06:53)
[2023-05-06 06:58] VITALS: BMI 31.3
--- NOTE | 2023-05-06 07:16 | W.PM.DSUDISC ---
Date of service: 05/06/23 Time of Service: 07:18 Discharge Plan Disposition Patient Disposition: Home Condition: Good Discharge Details Reason For Visit: Right carpal tunnel syndrome Attending Provider: Wyatt Mcdowell Primary Care Provider: Leena Joiner Home Meds and New Rx's Prescriptions: New hydrocodone-acetaminophen 5-325 mg tablet 1 tab PO Q6H PRN (Reason: severe pain) Qty: 4 0RF Rx Instructions: Take one tablet up to every 6 hours as needed for severe postoperative pain acetaminophen 500 mg tablet 500 mg PO Q6H PRN (Reason: pain) Qty: 60 2RF Continued montelukast 10 mg tablet 10 mg PO DAILY butalbital-acetaminophen 25-325 mg tablet 2 tab PO Q4H PRN famotidine 20 mg tablet 20 mg PO DAILY celecoxib 100 mg capsule 100 mg PO BID Qty: 60 0RF cholecalciferol (vitamin D3) 2,000 unit capsule 2,000 unit PO DAILY pantoprazole 40 mg tablet,delayed release (DR/EC) 40 mg PO DAILY albuterol sulfate [Ventolin HFA] 90 mcg/actuation HFA aerosol inhaler 2 puff inhalation Q6H PRN fluticasone propionate [Flovent HFA] 110 mcg/actuation HFA aerosol inhaler 2 puff inhalation BID dextroamphetamine-amphetamine [Adderall XR] 20 mg capsule,extended release 24hr 20 mg PO DAILY meclizine 25 mg tablet 25 mg PO TID PRN ondansetron 4 mg tablet,disintegrating 4 mg PO TID PRN (Reason: nausea and vomiting) Qty: 6 0RF Discharge Instructions Stand Alone Forms: Jeremias Wright Tunnel Release Referrals: Wyatt Mcdowell MD [ [facility] STAFF PHYSICIAN] - Activity:: Elevate Remove Dressings/Wound Care:: 48 hours Shower/Bathe:: 48 hours Diet:: As Tolerated Discharge Orders Discharge Orders: Discharge Order (Routine); Ordered 05/06/23 Ordered By: Orly Lanier DS: Diagnosis Discharge Diagnosis (1) Carpal tunnel syndrome of right wrist: Status: Acute
--- NOTE | 2023-05-06 07:20 | W.PREOPHP ---
Assessment and Plan Assessment and plan (1) Carpal tunnel syndrome of right wrist: Status: Acute Assessment and plan: Elsie is a 47-year-old female who is here today for right carpal tunnel release. Please the previous office note for complete detailed history. Once again I reviewed the surgery with her. I discussed the risk to include bleeding, infection, pain, stiffness, continued numbness, need for repeat procedures, recurrence, postoperative inflammation or swelling around the nerve and tendons, need for repeat procedures. Despite these risk, she elects to proceed. But History of Present Illness History of Present Illness Chief Complaint: Numbness and tingling about the right hand. Narrative: Elsie is a 47-year-old female who has carpal tunnel syndrome at the right side. She has been diagnosed with this for many years and has been putting off the surgery. Please see the previous office note for complete detailed history. She has failed other nonoperative options. She currently denies any chest pain or shortness of breath. No recent illness. Review of Systems All systems reviewed & are unremarkable except as noted in HPI and below PFSH All Active Problems Family history of skin cancer (Acute) Carpal tunnel syndrome of right wrist (Acute) Vertigo (Acute) Abdominal wall cellulitis (Acute) Dysfunction of right eustachian tube (Acute) Environmental allergies (Acute) Oral mass (Acute) Migraine headache with aura (Acute) Gait abnormality (Acute) Cervical radiculopathy (Acute) Pelvic pain (Chronic) Flank pain (Acute) Carpal tunnel syndrome (Acute 11/05/12) Dysmenorrhea (Acute 12/07/14) Medical History Bilateral carpal tunnel syndrome Allergic rhinitis Vesicular skin lesions Hematuria Anxiety with depression History of IBS Muscle weakness Headache Hot flashes Vitamin D deficiency Marijuana use Menorrhagia Overweight Foot pain Migraine Asthma IBS (irritable bowel syndrome) Gastroesophageal reflux disease Neck pain ADHD Tobacco abuse Fibromyalgia Dysmenorrhea Depression Colitis Anxiety Cervical radiculopathy Carpal tunnel syndrome Lipoma of abdominal wall Surgical History Hx of cholecystectomy Ligation of fallopian tube section x4 Family History Other Diabetes Fibromyalgia Heart disease Social History Smoking/Tobacco Use Status: Current every day Tobacco Type: cigarettes Smoking risk assessment performed?: Yes Alcohol Intake: former Drug use: Daily Substance use type: marijuana Details: patient states this usually help with stomach pain. Last night last dose Household members: children Housing: apartment Number of Children: 4 current occupation: disabled What is your relationship status?: never Panel score (0-1 are the most socially isolated patients): 0 What type of physical activity do you participate in: none Do you feel safe at home: Yes Do you feel safe in your relationship?: Yes Meds Allergies and Home Medications Allergies Allergy/AdvReac Type Severity Reaction Status Date / Time dicyclomine Allergy Severe Verified 05/06/23 06:32 Sulfa (Sulfonamide Allergy Severe Skin Rash Verified 05/06/23 06:32 Antibiotics) Macrolide Antibiotics Allergy Intermediate Verified 05/06/23 06:32 azithromycin [From Zithromax] Allergy Unknown Verified 05/06/23 06:32 cetirizine Allergy Unknown Verified 05/06/23 06:32 codeine Allergy Unknown Verified 05/06/23 06:32 sulfur dioxide Allergy Unknown Verified 05/06/23 06:32 erythromycin base Allergy Verified 05/06/23 06:32 ibuprofen Allergy Verified 05/06/23 06:32 tramadol Allergy Verified 05/06/23 06:32 doxycycline AdvReac Mild Nausea Unverified 05/06/23 06:32 Penicillins AdvReac Mild intestinal Verified 05/06/23 06:32 cramping Home Medications Medication Instructions Recorded Confirmed Type cholecalciferol (vitamin D3) 50 2,000 unit PO DAILY 07/07/18 05/06/23 History mcg (2,000 unit) capsule ondansetron 4 mg disintegrating 4 mg PO TID PRN nausea and 04/04/22 05/06/23 Rx tablet vomiting #6 tabs pantoprazole 40 mg tablet,delayed 40 mg PO DAILY 04/18/22 05/06/23 History release butalbital 25 mg-acetaminophen 325 2 tab PO Q4H PRN 08/15/22 05/06/23 History mg tablet montelukast 10 mg tablet 10 mg PO DAILY 08/15/22 05/06/23 History albuterol sulfate 90 mcg/actuation 2 puff inhalation Q6H PRN 02/04/23 05/06/23 History aerosol inhaler (Ventolin HFA) dextroamphetamine-amphetamine ER 20 mg PO DAILY 02/04/23 05/06/23 History 20 mg 24hr capsule,extend release (Adderall XR) fluticasone propionate 110 2 puff inhalation BID 02/04/23 05/06/23 History mcg/actuation HFA aerosol inhaler (Flovent HFA) meclizine 25 mg tablet 25 mg PO TID PRN 02/04/23 05/06/23 History celecoxib 100 mg capsule 100 mg PO BID #60 caps 03/31/23 05/02/23 Rx famotidine 20 mg tablet 20 mg PO DAILY 03/31/23 05/06/23 History acetaminophen 500 mg tablet 500 mg PO Q6H PRN pain #60 tabs 05/06/23 Rx hydrocodone 5 mg-acetaminophen 325 1 tab PO Q6H PRN severe pain #4 05/06/23 Rx mg tablet tabs Exam Resp Auscultation: clear to auscultation bilaterally Cardio Rate: regular rate Rhythm: regular rhythm Results Last Vital Signs Temp 36.3 C L 05/06/23 06:49 Pulse 77 05/06/23 06:49 Resp 16 05/06/23 06:49 BP 152/98 H 05/06/23 06:49 Pulse Ox 97 05/06/23 06:49
[2023-05-06] MEDS: ceFAZolin 2 GM/50 ML BAG IVPB (07:22)
[2023-05-06] MEDS: Lidocaine 1% Multi-Dose W/EPI 1/100,000 50 ML VIAL (07:32)
[2023-05-06 07:40] VITALS: BP 99/65; PULSE 71; RESP 16; TEMP 36; O2SAT 96
--- NOTE | 2023-05-06 07:52 | W.ANESPOSTOP ---
Postoperative Evaluation Date, Time and Location Date Performed: 05/06/23 Time Performed: 07:52 Patient Location: Day Surgery Unit Vital Signs Most Recent Imported Vital Signs: Most Recent Vital Signs Temp Pulse Resp BP Pulse Ox 36.0 C L 71 16 99/65 L 96 05/06/23 07:40 05/06/23 07:40 05/06/23 07:40 05/06/23 07:40 05/06/23 07:40 Pain Score Most Recent Pain Score: Most Recent Pain Score Pain Level 1 05/06/23 07:40 Assessment Mental Status: Awake (Alert & Oriented to Patient Baseline) Airway and Respiratory Function: Patent airway with normal (patient baseline) respiratory exam Cardiovascular Function: Hemodynamically Stable Hydration Status: Adequately Hydrated Nausea & Vomiting: No Nausea or Vomiting Pain: Pt. Denies Any Pain Peripheral Nerve Block: Patient did not receive a nerve block
[2023-05-06 08:22] VITALS: BP 118/91; PULSE 76; RESP 16; TEMP 36.4; O2SAT 99
--- NOTE | 2023-05-06 17:26 | ROE_ITS ---
Date of service: 05/06/23 Time of Service: 07:30 Operative Note Operative Note DATE OF PROCEDURE: 05/06/23 PRE-OP DIAGNOSIS: Right Carpal Tunnel Syndrome POST-OP DIAGNOSIS: same PROCEDURE: Right Endoscopic Carpal Tunnel Release SURGEON: Wyatt Mcdowell ANESTHESIA TYPE: General:No Airway Refer to Anesthesia Record ESTIMATED BLOOD LOSS: 0 PATHOLOGY: none sent TOURNIQUET TIME: 4 COMPLICATIONS: None Patient was transported to: same day Patient's condition: stable Indications: I have seen Elsie in clinic for symptoms of carpal tunnel syndrome. The numbness, tingling, and pain limited function. Clinical exam findings with nerve conduction tests confirmed the diagnosis of carpal tunnel syndrome. Nonoperative measures such as bracing, time, activity modifications had been tried but disability and pain persisted. I discussed carpal tunnel release with the patient. I reviewed the risks of the procedure to include, but not limited to, bleeding, infection, pain, stiffness, incomplete release, damage to nerves or vessels, persistent numbness, recurrence. Despite these risks, the patient elected to proceed. Findings: There was tightened carpal tunnel. This was dilated and released successfully with the endoscopic with increased space within the tunnel. The antebrachial fascia was released proximally freeing the median nerve at the wrist. Procedure Description: Elsie was greeted in the preoperative holding area where the correct side was identified and marked. The consent was reviewed with the patient and signed. The history and physical was updated. All questions were answered. She was taken back to the operating room. The patient was placed into the supine position on the operating room table with the right arm on an arm board. A nonsterile tourniquet was placed high onto the arm. All bony prominences were well padded. Prophylactic antibiotics in the form of Cefazolin were administered. The right arm was then prepped with Chloraprep and draped in a standard fashion with stockinette and extremity drape. A timeout to confirm correct identity, side and site, procedure, allergies, anesthesia, and medical concerns was performed. The surgical site was marked in the volar wrist creases in line with the radial border of the fourth ray. This area was anesthetized with approximately 6cc of 1% Lidocaine. The limb was then exsanguinated with an Esmarch. The skin was incised with a 15 blade, approximately 1cm. The skin only was cut and the deeper tissue was dissected bluntly with a tenotomy scissor, avoiding passing nerve and venous structures. The fascia was penetrated and opened bluntly. A two-prong skin hook was placed under this proximal fascial edge. A series of hamate finders were used to identify and dilate the carpal tunnel. Synovial elevator was used to free synovial attachments to the underside of the transverse carpal ligament. My thumb was kept in the palm to ki the distal extent of the carpal tunnel and correctly position the hand. The MicroVoxele e ndoscope was inserted without difficulty and without resistance. Excellent visualization showed horizontally running fibers of the transverse carpal ligament (TCL). The distal extent of the TCL was visualized and the end of the scope palpated with the thumb. The blade was elevated and withdrawn from distal to proximal. The TCL was split into two flaps. The endoscope was reinserted to confirm complete release and any remnant ligament was incised. The scope was withdrawn and the proximal aspect of the carpal tunnel was grossly inspected and appeared release with the median nerve visible. The antebrachial fascia at the level of the wrist was then freed from the overlying skin and then the underlying median nerve with blunt dissection. This was transected longitudinally for about 3cm proximal to the wrist incision. The wound was then irrigated with easy flow of irrigant distally and proximally. The incision was closed with a single 4-0 Nylon suture. The wound was dressed with Xeroform, Gauze, Kerlix and Vinay. The tourniquet was deflated with the initial dressing and held with some pressure. Blood flow returned easily to all digits with capillary refill less than 2 seconds. The patient tolerated the procedure well and was returned to the Same Day Surgery area in a stable condition suffering no known complication.
== END 2023-05-06 08:43 | disposition home or self-care (01) ==
PROVIDERS: PCP Family Medicine; Visit Provider Student in an Organized Health Care Education/Training Program
PROC: 01N54ZZ Release Median Nerve, Percutaneous Endoscopic Approach (ICD-10-PCS; CPT 29848; principal; 2023-05-06 07:30)
DX: G56.01 Carpal tunnel syndrome, right upper limb (principal); F41.8 Other specified anxiety disorders; J45.909 Unspecified asthma, uncomplicated; E55.9 Vitamin D deficiency, unspecified; F17.210 Nicotine dependence, cigarettes, uncomplicated
CPT/HCPCS: 29848; 81025; J0690; J2004; J2250; J2405; J2704; J3010

== ENCOUNTER 2023-11-01 19:46 | Emergency (ER) | payer MEDICAID, SELFPAY ==
[2023-11-01 19:51] VITALS: BP 129/96; PULSE 101; RESP 16; TEMP 36.8
--- NOTE | 2023-11-01 20:01 | W.ED.GENAD ---
Discharge Plan Disposition Patient Disposition: Home Condition: Stable Discharge Details Clinical Impression: Erythema migrans (Lyme disease) Primary Care Provider: Leena Joiner ED Provider: Lance Leon Home Meds and New Rx's Prescriptions: New doxycycline hyclate 100 mg tablet 100 mg PO BID 21 Days Qty: 42 0RF cephalexin 500 mg capsule 500 mg PO QID 7 Days Qty: 28 0RF Continued montelukast 10 mg tablet 10 mg PO DAILY butalbital-acetaminophen 25-325 mg tablet 2 tab PO Q4H PRN famotidine 20 mg tablet 20 mg PO DAILY cholecalciferol (vitamin D3) 2,000 unit capsule 2,000 unit PO DAILY pantoprazole 40 mg tablet,delayed release (DR/EC) 40 mg PO DAILY albuterol sulfate [Ventolin HFA] 90 mcg/actuation HFA aerosol inhaler 2 puff inhalation Q6H PRN dextroamphetamine-amphetamine [Adderall XR] 20 mg capsule,extended release 24hr 20 mg PO DAILY meclizine 25 mg tablet 25 mg PO TID PRN ondansetron 4 mg tablet,disintegrating 4 mg PO TID PRN (Reason: nausea and vomiting) Qty: 6 0RF Pulmicort Flexhaler 90 mcg/actuation aerosol powdr breath activated 2 inh INHALATION ONCE Patient Comments: INHALE TWO PUFFS BY MOUTH TWO TIMES A DAY DIRECTED acetaminophen 500 mg tablet 500 mg PO Q6H PRN (Reason: pain) Qty: 60 2RF Discharge Instructions Instructions: Lyme disease, Cephalexin, Doxycycline Additional Instructions: You were seen in the emergency department for your likely Lyme disease, you have a rash consistent with erythema migrans at your right hip. This also could be an infected tick bite with normal cellulitis. I am starting you on 2 different antibiotics, cephalexin for cellulitis, doxycycline for empiric Lyme disease. We should have the results of your Lyme disease test tomorrow, if this is positive you may discontinue the cephalexin and treat with only doxycycline. Please take 21 days of doxycycline, if you feel complete relief it is possible with consult from your primary care provider that you discontinue at 14 days, sometimes if you still have joint pains and bodyaches at 21 days you need an additional week to extend the antibiotic coverage to 28 days. Please use therapeutic dosing of Tylenol (acetamenophen) & Advil (ibuprofen) in an alternating fashion as follows: Take 1000mg of Tylenol every 6 hours without missing doses- that is 4 times per day. Long Term in between the Tylenol dosings, take 400-600mg of Advil also on a 6 hour schedule, that is also 4 times per day. The daily maximum dosing of Tylenol is 4000mg, and the daily maximum dosing of Advil is 2400mg. This is safe to do for weeks. Please note that some common cold medications & prescription pain medications may contain acetamenophen and you need to read OTC drug labels and factor that in to maximum daily dosings. Please return to the emergency department for severe unilateral joint swelling of the joint, extreme profound lethargy, chest pain with palpitations, inability to tolerate p.o. intake Referrals: Leena Joiner [Primary Care Provider] - Discharge Data Discharge Date/Time-TO BE ENTERED AT DEPARTURE: 11/01/23 22:07 HPI General Date/Time Provider Initiated Documentation: 11/01/23 20:01. HPI Narrative: 47 year-old female presents to ED today by POV/ambulating with a chief complaint of red rash on R hip/anterior inguinal region with onset 3-4 days ago. Quality described as feels warm to touch, having chills/fever, body aches, weakness, poor appetite and headache, no radiation to chest pain- endorses some palpitations, denies shortness of breath, cough, intractable nausea/vomiting, joint swelling. Severity is described as moderate to severe. Palliating factors include nothing specific attempted. Provoking factors include nothing specific. Events leading up to the incident/Associated Symptoms: Patient denies any known tick bites. Patient not anticoagulated. Related Data Home Medications ?Medication ?Instructions ?Recorded ?Confirmed cholecalciferol (vitamin D3) 50 2,000 unit PO DAILY 07/07/18 11/01/23 mcg (2,000 unit) capsule ondansetron 4 mg disintegrating 4 mg PO TID PRN nausea and 04/04/22 11/01/23 tablet vomiting #6 tabs pantoprazole 40 mg tablet,delayed 40 mg PO DAILY 04/18/22 11/01/23 release butalbital 25 mg-acetaminophen 325 2 tab PO Q4H PRN 08/15/22 11/01/23 mg tablet montelukast 10 mg tablet 10 mg PO DAILY 08/15/22 11/01/23 albuterol sulfate 90 mcg/actuation 2 puff inhalation Q6H PRN 02/04/23 11/01/23 aerosol inhaler (Ventolin HFA) dextroamphetamine-amphetamine ER 20 mg PO DAILY 02/04/23 11/01/23 20 mg 24hr capsule,extend release (Adderall XR) meclizine 25 mg tablet 25 mg PO TID PRN 02/04/23 11/01/23 famotidine 20 mg tablet 20 mg PO DAILY 03/31/23 11/01/23 acetaminophen 500 mg tablet 500 mg PO Q6H PRN pain #60 tabs 05/06/23 11/01/23 budesonide 90 mcg/actuation breath 2 inh inhalation ONCE 11/01/23 11/01/23 activated powder inhaler (Pulmicort Flexhaler) cephalexin 500 mg capsule 500 mg PO QID 7 days #28 caps 11/01/23 doxycycline hyclate 100 mg tablet 100 mg PO BID 21 days #42 tabs 11/01/23 Previous Rx's ?Medication ?Instructions ?Recorded ondansetron 4 mg disintegrating 4 mg PO TID PRN nausea and 04/04/22 tablet vomiting #6 tabs acetaminophen 500 mg tablet 500 mg PO Q6H PRN pain #60 tabs 05/06/23 cephalexin 500 mg capsule 500 mg PO QID 7 days #28 caps 11/01/23 doxycycline hyclate 100 mg tablet 100 mg PO BID 21 days #42 tabs 11/01/23 Allergies Allergy/AdvReac Type Severity Reaction Status Date / Time cephalexin (From Keflex) Allergy Severe Skin Rash Verified 11/01/23 22:01 dicyclomine Allergy Severe vomit Verified 11/01/23 22:01 Sulfa (Sulfonamide Allergy Severe Skin Rash Verified 11/01/23 22:01 Antibiotics) Macrolide Antibiotics Allergy Intermediate Diarrhea Verified 11/01/23 22:01 azithromycin (From Zithromax) Allergy Unknown Diarrhea Verified 11/01/23 22:01 cetirizine Allergy Unknown Headache Verified 11/01/23 22:01 codeine Allergy Unknown Nausea Verified 11/01/23 22:01 sulfur dioxide Allergy Unknown Hives Verified 11/01/23 22:01 erythromycin base Allergy anxiety Verified 11/01/23 22:01 ibuprofen Allergy Other (See Verified 11/01/23 22:01 Comment) tramadol Allergy Headache Verified 11/01/23 22:01 doxycycline AdvReac Mild Nausea Unverified 11/01/23 22:01 Penicillins AdvReac Mild intestinal Verified 11/01/23 22:01 cramping General Stated Complaint: RashLesion GILLIAN: 3 Review of Systems All systems reviewed & are unremarkable except as noted in HPI and below Exam Narrative Exam Narrative: GENERAL APPEARANCE: Well-nourished, non-toxic, awake and alert, atraumatic, no acute distress. SKIN: Warm, pink, dry, intact, 4x7cm macular red rash with central clearing at R hip/anterior inguinal region, no fluctuant swelling, no drainage of pus, warm to touch. HEAD: Normocephalic, atraumatic, normal hair distribution for gender/age. EYES: Pupils PERRLA, EOMs intact without nystagmus, normal conjunctiva, no exudates on lids/lashes. ENT: Nares patent, no circumoral cyanosis, no facial swelling NECK: Supple, trachea midline, painless cervical ROM. LUNGS/CHEST: Lungs CTA bilaterally- no rhonchi/rales/wheezes diffusely, non-labored respirations, normal A/P diameter, symmetrical expansion, no chest wall deformity HEART (CV/PV): Regular rate and rhythm without murmur, no peripheral edema, no JVD. ABDOMEN: Soft, non-distended, no guarding, no tenderness. MSK: Normal ROM, no swelling/deformity to bilateral UEs or LEs, moving all extremities without weakness, no cyanosis, spine midline without tenderness, normal curvature. NEURO: Mental Status AAOx4 - alert to person, place, time, events No facial droop, no forehead involvement. Motor: No focal weakness - strength 5/5 in bilateral UEs and LEs, proximal and distal, symmetric. Sensory: sensation intact to light touch globally. Gait normal: patient ambulated without ataxia into ED room. PSYCH: euthymic, cooperative, pleasant, appropriate speech Course Vital Signs Vital signs: Vital Signs Temperature 36.8 C 11/01/23 19:51 Pulse 101 H 11/01/23 19:51 Respiratory Rate 16 11/01/23 19:51 Blood Pressure 129/96 H 11/01/23 19:51 Temperature 36.8 C 11/01/23 19:51 Temperature Source Temporal Artery Scan 11/01/23 19:51 Pulse 101 H 11/01/23 19:51 Respiratory Rate 16 11/01/23 19:51 Respiratory Effort Normal, Non-Labored 11/01/23 19:59 Blood Pressure 129/96 H 11/01/23 19:51 Blood Pressure Position Sitting 11/01/23 19:51 Oxygen Delivery Method Room Air 11/01/23 19:51 Oxygen Flow Rate 0 11/01/23 19:51 Pain Level 4 11/01/23 19:51 Medical Decision Making This dictation utilizes [id number] dictation software and may contain unedited grammatical errors. 47 year-old female presents to ED today by POV/ambulating with a chief complaint of red rash on R hip/anterior inguinal region with onset 3-4 days ago. Quality described as feels warm to touch, having chills/fever, body aches, weakness, poor appetite and headache, no radiation to chest pain- endorses some palpitations, denies shortness of breath, cough, intractable nausea/vomiting, joint swelling. Severity is described as moderate to severe. Palliating factors include nothing specific attempted. Provoking factors include nothing specific. Events leading up to the incident/Associated Symptoms: Patient denies any known tick bites. Patients' medical history: GERD, anxiety, IBS, migraine, fibromyalgia. Family and social history: Noncontributory. Pertinent exam findings / vital signs include 7 x 4 cm red appearing macular rash with some central clearing at the right anterior hip area consistent with tick bite and erythema migrans, no isolated joint swelling, benign cardiopulmonary exam, neuro intact, nontoxic vitals. Differential / pathologies of concern include cellulitis, tick bite, Lyme disease, anaplasmosis, Babesia. Diagnostic studies of: -CBC, CMP, CK, lactate, procalcitonin, troponin, EKG, UA, tick and Lyme panel, blood cultures. -CBC shows no leukocytosis, some signs of hemoconcentration with elevated hemoglobin and hematocrit of mild dehydration -Lactate and procalcitonin negative -Troponin negative -CMP is benign with some mild elevated creatinine consistent with dehydration again -UA shows small amount of blood, nonspecific -CK negative -Blood cultures pending -Tick panel pending -EKG shows some submillimeter ST depressions diffusely, flattened T waves, no heart block or signs of ischemia-possible tickborne illness Interventions of: -IV ceftriaxone and IV doxycycline. -Patient has poor understanding of true allergies and has almost every class of antibiotic listed in her chart as an allergy which is more consistent with common side effects of these medications, advised that this was not a prudent course of action that would possibly complicate simple treatments for common pathologies in the future. -States she had developed a rash from Keflex before but tolerated IV ceftriaxone without any symptoms and multiple hours of observation post administration. ED Course/Assessment/Plan: Patient has a consistent rash of erythema migrans, treating empirically with doxycycline for 21 days, recommend she follow-up with her primary care provider for possible discontinuation after 14 days if she is completely symptom-free, recommend another additional week if she still has any symptoms at 21 days, counseled the patient on common side effects of doxycycline and that nausea and abdominal discomfort are common and not an allergy to doxycycline, recommend she take it with food, recommend strict return criteria for any chest pain, palpitations, significant joint swelling. Findings not consistent with sepsis, cardiomyopathy or heart block, UTI, severe dehydration, rhabdomyolysis. Disposition of Erythema Migrans (Lyme Disease). Patient verbalized understanding of the plan and return to ED criteria and engaged in shared decision making. Medical Records Medical records reviewed: Yes I reviewed the patient's medical records. Lab Data Lab results reviewed: Yes I reviewed the patient's lab results. Labs: 11/01/23 20:57 Blood Blood Culture - Pending 11/01/23 20:37 Blood Blood Culture - Pending Laboratory Tests Range/Units 11/01/23 11/01/23 20:37 20:45 WBC (4.4-10.8) 10^3/uL 10.18 RBC (3.93-5.22) 10^6/uL 5.61 H Hgb (11.2-15.7) g/dL 16.0 H Hct (36.0-46.0) % 47.4 H MCV (80-95) fL 85 MCH (27.0-33.0) pg 28.5 MCHC (32.0-36.0) % 33.8 RDW (11.7-14.6) % 13.2 Plt Count (130-400) 10^3/uL 299 MPV (8.0-11.0) fL 8.8 Immature Gran % % 0.3 Neutrophils % % 80.9 Lymphocytes % % 10.1 Monocytes % % 7.7 Eosinophils % % 0.7 Basophils % % 0.3 Nucleated RBC % (0.0-0.3) % 0.0 Absolute Neutrophils (1.2-6.7) 10^3/uL 8.24 H Absolute Lymphocytes (1.2-3.4) 10^3/uL 1.03 L Absolute Monocytes (0.1-0.8) 10^3/uL 0.78 Absolute Eosinophils (0.0-0.7) 10^3/uL 0.07 Absolute Basophils (0.0-0.2) 10^3/uL 0.03 VBG Lactate (0.6-1.4) mmol/L 1.1 Sodium (136-145) mmol/L 136 Potassium (3.5-5.1) mmol/L 3.7 Chloride (98-107) mmol/L 99 Carbon Dioxide (21.0-32.0) mmol/L 26.9 Anion Gap (3-11) mmol/L 10.1 BUN (7-18) mg/dL 10 Creatinine (0.55-1.02) mg/dL 1.1 H Est GFR (CKD-EPI 2020) (mL/min/1.73m2) 62.76 Glucose (74-106) mg/dL 114 H Calcium (8.5-10.1) mg/dL 8.9 Total Bilirubin (0.2-1.0) mg/dL 0.63 AST (15-37) U/L 15 ALT (14-59) U/L 24 Alkaline Phosphatase (46-116) U/L 97 Creatine Kinase (26-192) U/L 118 Troponin I (< or =60) ng/L < 50 Total Protein (6.4-8.2) g/dL 8.1 Albumin (3.4-5.0) g/dL 4.0 Procalcitonin ng/mL < 0.1 Urine Color (Yellow) Yellow Urine Clarity (Clear) Clear Urine pH (5-8) 5.5 Ur Specific [place] (1.005-1.025) 1.020 Urine Protein (Neg-Trace) mg/dL Negative Urine Ketones (Negative) mg/dL Negative Urine Blood (Negative) Small H Urine Nitrite (Negative) Negative Urine Bilirubin (Negative) Negative Urine Urobilinogen (Up to 0.2) mg/dL 0.2 Ur Leukocyte Esterase (Negative) Negative Urine RBC (0-2) HPF 3-5 H Urine WBC (0-5) HPF 0-2 Ur Epithelial Cells (Negative) HPF Few Urine Crystals (Negative) HPF Negative Urine Bacteria (Negative) HPF Negative Urine Casts (Negative) LPF Negative Urine Mucus (Negative) Negative Ur Culture Indicated? No Urine Glucose (Negative) mg/dL Negative Quality:SDOH Health Related Social Needs: No Data to Display PFSH All Active Problems (Updated 11/01/23 @ 21:39 by EUNICE Robertson) Erythema migrans (Lyme disease) (Acute) Family history of skin cancer (Acute) Carpal tunnel syndrome of right wrist (Acute) s/p right ECTR DOS: 05/06/23 Vertigo (Acute) Abdominal wall cellulitis (Acute) Dysfunction of right eustachian tube (Acute) Environmental allergies (Acute) Oral mass (Acute) Migraine headache with aura (Acute) Gait abnormality (Acute) Cervical radiculopathy (Acute) Pelvic pain (Chronic) Flank pain (Acute) Carpal tunnel syndrome (Acute 11/05/12) Dysmenorrhea (Acute 12/07/14) Medical History Bilateral carpal tunnel syndrome Allergic rhinitis Vesicular skin lesions Hematuria Anxiety with depression History of IBS Muscle weakness Headache Hot flashes Vitamin D deficiency Marijuana use Menorrhagia Overweight Foot pain Migraine Asthma IBS (irritable bowel syndrome) Gastroesophageal reflux disease Neck pain ADHD Tobacco abuse Fibromyalgia Dysmenorrhea Depression Colitis Anxiety Cervical radiculopathy Carpal tunnel syndrome Lipoma of abdominal wall Surgical History Hx of cholecystectomy Ligation of fallopian tube section x4 Family History Other Diabetes Fibromyalgia Heart disease Social History Smoking/Tobacco Use Status: Current every day Tobacco Type: cigarettes Smoking risk assessment performed?: Yes Alcohol Intake: former Drug use: Daily Substance use type: marijuana Details: patient states this usually help with stomach pain. last used late this afternoon 11/01/23 Household members: children Housing: apartment Number of Children: 4 current occupation: disabled What is your relationship status?: never Panel score (0-1 are the most socially isolated patients): 0 What type of physical activity do you participate in: none Do you feel safe at home: Yes Do you feel safe in your relationship?: Yes
--- OUTSIDE RECORDS SUMMARY | 2023-11-01 20:09 | XMS_ITS | Encounter Summary ---
Author Organization [facility] Address [address] [place] [address] Care Team Providers Care Continuity Director Name Role Phone Unavailable Primary Care Provider Unavailabl e Encounter Details Date Type Department Care Team (Latest Contact Info) Description 06/15/2002 18:21 EST Hospital Encounter [facility] - Other [address] [place] [address] Elise Regalado MD [address] [facility] [address] [place] [address] Unknown, Provider, Discharge Disposition: Auto Discharge Social History Tobacco Use Types Packs/Day Years Used Date Smoking Tobacco: Never Assessed Sex and Gender Information Value Date Recorded Sex Assigned at Not on file Gender Identity Not on file Sexual Orientation Not on file documented as of this encounter Discharge Disposition Disposition Code Departure Means Destination Auto Discharge documented in this encounter Plan of Treatment Not on file documented as of this encounter Visit Diagnoses Not on filedocumented in this encounter
--- OUTSIDE RECORDS SUMMARY | 2023-11-01 20:09 | XMS_ITS | Encounter Summary ---
Author Organization [facility] Address [address] [place] [address] Care Team Providers Care Knitter Hand Name Role Phone Unavailable Primary Care Provider Unavailabl e Encounter Details Date Type Department Care Team (Late st Contact Info) Description 02/23/2003 Results Only [facility] - [facility] conversion [address] [place] [address] João Hunter MD [address] [place] [address] Social History Tobacco Use Types Packs/Day Years Used Date Smoking Tobacco: Never Assessed Sex and Gender Information Value Date Recorded Sex Assigned at Not on file Gender Identity Not on file Sexual Orientation Not on file documented as of this encounter Plan of Treatment Not on file documented as of this encounter Procedures Procedure Name Priority Date/Time Associated Diagnosis Comments CYTOPATHOLOGY Routine 02/23/2003 0:00 EST documented in this encounter Results * CYTOPATHOLOGY (02/23/2003 0:00 EST) Pathology Report: CYTOPATHOLOGY REPORT Reports generated via electronic interface contain original data; however they are lacking the format of the original report. Caution should be taken when reading/interpreti ng unformatted reports. Name: ? ELSIE COFFMAN ? Accession #: ? [id number] : ? 1975 (Age: 27) ??F ?Collect Date: ? 02/23/2003 Location: ? [facility] ? Receive Date: ? 02/25/2003 Provider: ?JOÃO HUNTER MD Copy to: ? Specimen/Source: ?ThinPrep Pap Test, Cervix/Endocervix Last Menstrual Period: ? 01/28/03 Menstrual/Pregnanc y Status: ? Post Other: ? HPVA - HPV testing requested if ASC-US on the current ThinPrep Pap test. ? SPECIMEN ADEQUACY ? Satisfactory for Evaluation - transformation zone component present GENERAL CATEGORIZATION ? Negative for Intraepithelial Lesion or Malignancy INTERPRETATION ? Shift in mckenzie present suggestive of bacterial vaginosis. ? Document reviewed and electronically signed by: ? AFSHAN Garcia(ASCP) ? Report Date: ??03/03/2003 13:52 End of Report MARKY SANTOS 02/23/2003 02/25/2003 João Hunter MD PATHOLOGY ORDERABLES Performing Organization Address City/State/[facility] Co de Phone Number MARKY SANTOS [address] [place] [address] documented in this encounter Visit Diagnoses Not on filedocumented in this encounter
--- OUTSIDE RECORDS SUMMARY | 2023-11-01 20:09 | XMS_ITS | Encounter Summary ---
Author Organization [facility] Address [address] [place] [address] Care Team Providers Care Analytical Chemist Name Role Phone Elise Regalado MD Primary Care Provider [phone] Encounter Details Date Type Department Care Team (Latest Contact Info) Description 01/21/2017 11:12 EDT - 01/21/2017 23:59 EDT Hospital Encounter [address] [address] Unknown, Provider, Discharge Disposition: Home or Self Care Social History Tobacco Use Types Packs/Day Years Used Date Smoking Tobacco: Never Assessed Sex and Gender Information Value Date Recorded Sex Assigned at Not on file Gender Identity Not on file Sexual Orientation Not on file documented as of this encounter Discharge Disposition Disposition Code Departure Means Destination Home or Self Fpc documented in this encounter Plan of Treatment Not on file documented as of this encounter Visit Diagnoses Not on filedocumented in this encounter Care Teams Analytical Chemist Relationship Specialty Start Date End Date Elise Regalado MD [address] [place] [phone] PCP - General 07/12/11 documented as of this encounter
--- OUTSIDE RECORDS SUMMARY | 2023-11-01 20:09 | XMS_ITS | Encounter Summary ---
Author Organization [facility] Address [address] [place] [address] Care Team Providers Care Urban Anthropologist Name Role Phone Unavailable Primary Care Provider Unavailabl e Encounter Details Date Type Department Care Team (Late st Contact Info) Description 07/10/2001 Results Only [facility] - Maple conversion [address] [place] [address] Sana Hoffman, CARLO [address] [place] [address] Social History Tobacco Use Types Packs/Day Years Used Date Smoking Tobacco: Never Assessed Sex and Gender Information Value Date Recorded Sex Assigned at Not on file Gender Identity Not on file Sexual Orientation Not on file documented as of this encounter Plan of Treatment Not on file documented as of this encounter Procedures Procedure Name Priority Date/Time Associated Diagnosis Comments CYTOPATHOLOGY Routine 07/10/2001 0:00 EST documented in this encounter Results * CYTOPATHOLOGY (07/10/2001 0:00 EST) Pathology Report: CYTOPATHOLOGY REPORT Reports generated via electronic interface contain original data; however they are lacking the format of the original report. Caution should be taken when reading/interpreti ng unformatted reports. Name: ? ELSIE COFFMAN ? Accession #: ? [id number] : ? 1975 (Age: 25) ??F ?Collect Date: ? 07/10/2001 Location: ? [facility] ? Receive Date: ? 07/14/2001 Provider: ?SANA HOFFMAN CATTLE DRIVER Copy to: ? Specimen/Source: ?ThinPrep Pap Test, Cervix/Endocervix Last Menstrual Period: ? SPECIMEN ADEQUACY ? Satisfactory for Evaluation - transformation zone component present GENERAL CATEGORIZATION ? Negative for Intraepithelial Lesion or Malignancy INTERPRETATION ? 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 ? Document reviewed and electronically signed by: ? Lisa Torre CT(ASCP) ? Report Date: ??07/17/2001 11:05 End of Report MARKY SANTOS 07/10/2001 07/14/2001 Sana Hoffman NP PATHOLOGY ORDERABLES MARKY SANTOS [address] [place] [address] documented in this encounter Visit Diagnoses Not on filedocumented in this encounter
--- OUTSIDE RECORDS SUMMARY | 2023-11-01 20:09 | XMS_ITS | Encounter Summary ---
Author Organization [facility] Address [address] [place] [address] Care Team Providers Care Traffic Control Specialist Name Role Phone Unavailable Primary Care Provider Unavailabl e Encounter Details Date Type Department Care Team (Late st Contact Info) Description 12/13/2010 Results Only [facility] Laboratory Services - [facility] ([facility]) [address] [place] [address] Elise Yates MD [address] [facility] [address] [place] [address] Social History Tobacco Use Types Packs/Day Years Used Date Smoking Tobacco: Never Assessed Sex and Gender Information Value Date Recorded Sex Assigned at Not on file Gender Identity Not on file Sexual Orientation Not on file documented as of this encounter Plan of Treatment Not on file documented as of this encounter Procedures Procedure Name Priority Date/Time Associated Diagnosis Comments PAP TEST- RESULT ONLY Routine 12/13/2010 0:00 EDT documented in this encounter Results * PAP TEST- RESULT ONLY (12/13/2010 0:00 EDT) Pathology Report: CYTOPATHOLOGY REPORT ? Reports generated via electronic interface contain original data; ? however they are lacking the format of the original report. ? Caution should be taken when reading/interpreti ng unformatted reports. ? Name: ? ELSIE COFFMAN ? Accession #: ? [id number] ? : ? 1975 (Age: 35) ??F ?Collect Date: ? 12/13/2010 ? Location: ? [facility] ? Receive Date: ? 12/18/2010 ? Provider: ?ELISE YATES MD ? Copy to: ? Specimen/Source: ?Pap Test, Cervix/Endocervix, ThinPrep Imaging System ? with manual evaluation ? Last Menstrual Period: ? Menstrual/Pregnanc y Status: ? SPECIMEN ADEQUACY ? Satisfactory for Evaluation ? - transformation zone component present ? GENERAL CATEGORIZATION ? Negative for Intraepithelial Lesion or Malignancy ? Document reviewed and electronically signed by: ? Laurence Faustin, SCT(ASCP) ? Report Date: ??12/24/2010 09:19 ? End of Report ? MARKY SANTOS 12/13/2010 12/18/2010 Elise Yates MD PATHOLOGY ORDERABLES Performing Organization Address City/State/[facility] Co de Phone Number MARKY SANTOS [address] [place] [address] documented in this encounter Visit Diagnoses Not on filedocumented in this encounter
--- OUTSIDE RECORDS SUMMARY | 2023-11-01 20:09 | XMS_ITS | Encounter Summary ---
Author Organization [facility] Address [address] [place] [address] Care Team Providers Care Labor Representative Name Role Phone Elise Yates MD Primary Care Provider [phone] Encounter Details Date Type Department Care Team (Late st Contact Info) Description 02/29/2016 Results Only [facility]- PRISM [phone] Elise Yates MD [address] [place] [address] Social History Tobacco Use Types [...] Diagnosis Comments PAP TEST- RESULT ONLY Routine 02/29/2016 0:00 EST documented in this encounter Results * PAP TEST- RESULT ONLY (02/29/2016 0:00 EST) Pathology Report: CYTOPATHOLOGY REPORT Reports generated via electronic interface contain original data; however they are lacking the format of the original report. Caution should be taken when reading/interpreti ng unformatted reports. Name: ? ELSIE COFFMAN ? Accession #: ? [id number] ? : ? 1975 (Age: 40) ??F ?Collect Date: ? 02/29/2016 ? Location: ? [facility] ? Receive Date: ? 03/04/2016 ? Provider: ELISE YATES MD Copy to: ? Final Report SPECIMEN ADEQUACY ? Satisfactory for Evaluation - transformation zone component absent GENERAL CATEGORIZATION ? Negative for Intraepithelial Lesion or Malignancy ?? Specimen/Source: ??Pap Test, Cervix/Endocervix, ThinPrep Imaging System with manual evaluation Document reviewed and electronically signed by: ? AFSHAN Singh(ASCP) ? Report ??Date: 03/08/2016 11:08 HPV with Pap Test ? Date Ordered: ? 03/08/2016 ? Status: ?? Signed Out ?Date Complete: ? 03/12/2016 ? By: ??System Interface ? Date Reported: ? 03/12/2016 ? Interpretation RESULT: Negative for HPV. No E6 or E7 mRNA is detected from HPV types 16,18,31,33,35, 39,45,51,52,56,58, 59,66, and 68 by occupational health and safety adviser mediated amplification. Comments Document reviewed and electronically signed by: ? System Interface ? Report date: 03/12/2016 By the signature above, the attending physician certifies that he/she has personally conducted a gross and/or microscopic examination of the described specimens and rendered or confirmed the above diagnosis. End of Report [facility] 02/29/2016 03/04/2016 Elise Yates MD PATHOLOGY ORDERABLES [facility] [address] [place] [address] documented in this encounter Visit Diagnoses Not on filedocumented in this encounter Care Teams Labor Representative Relationship Specialty Start Date End Date Elise Yates MD [address] [place] [phone] PCP - General 07/12/11 documented as of this encounter
--- OUTSIDE RECORDS SUMMARY | 2023-11-01 20:09 | XMS_ITS | Encounter Summary ---
Author Organization [facility] Address [address] [place] [address] Care Team Providers Care Transplant Registered Nurse Name Role Phone Elise Regalado MD Primary Care Provider [phone] Encounter Details Date Type Department Care Team (Late st Contact Info) Description 10/28/2020 Lab Requisition [facility] Pathology & Laboratory Medicine - [facility] [address] [place] [address] Outr Resulting Lab, Provider Social History Tobacco Use Types Packs/Day Years Used Date Smoking Tobacco: Never Assessed Interpersonal Safety Answer Date Record ed Physically Hurt Never 11/14/2019 Verbally Threaten Not on file 11/14/2019 Sex and Gender Information Value Date Recorded Sex Assigned at Not on file Gender Identity Not on file Sexual Orientation Not on file documented as of this encounter Plan of Treatment Not on file documented as of this encounter Procedures Procedure Name Priority Date/Time Associated Diagnosis Comments ZZCOVID-19 TEST [facility] PCR Today 10/27/2020 11:45 EDT COVID-19 TESTING Routine 10/27/2020 11:4 5 EDT documented in this encounter Results * COVID-19 TEST [facility] PCR (10/27/2020 11:45 EDT) Swab ENTIRE NASOPHARYNX / Unknown 10/27/2020 11:45 EDT 10/28/2020 21:25 EDT Provider Outr Resulting Lab MICROBIOLOGY - GENERAL ORDERABLES [facility] [address] [place] [address] * COVID-19 TESTING (10/27/2020 11:45 EDT) COVID-19 rt-PCR Result Negative Negative 10/29/2020 10:55 EDT [facility] Comment: This test has not been FDA cleared or approved. This test has been authorized by FDA under an EUA for use by authorized laboratories. This test has been authorized only for detection of nucleic acid from 2019-nCoV, not for any other viruses or pathogens. This test is only authorized for the duration of the declaration that circumstances exist justifying the authorization of emergency use of in vitro diagnostic tests for detection and/or diagnosis of 2019-nCoV under section 564(b)(1) of Act, 21 U.S.C ?? 360bbb-3(b) (1), unless the authorization is terminated or revoked sooner. Negative results do not preclude 2019-nCoV infection and should not be used as the sole basis for treatment or other patient management decisions. Negative results must be combined with clinical observations, patient history, and epidemiological information. Testing was performed using the sneha SARS-CoV-2 assay ([employer] on the Nseha 6800 System Performing Lab Sneha [address] [facility] 10/29/2020 10:55 EDT [facility] Swab 10/27/2020 11:4 5 EDT 10/28/2020 21:25 EDT Provider Outr Resulting Lab MICROBIOLOGY - GENERAL ORDERABLES [facility] [address] [place] [address] documented in this encounter Visit Diagnoses Not on filedocumented in this encounter Care Teams Transplant Registered Nurse Relationship Specialty Start Date End Date Elise Regalado MD [address] [place] [phone] PCP - General 07/12/11 documented as of this encounter
--- OUTSIDE RECORDS SUMMARY | 2023-11-01 20:09 | XMS_ITS | Encounter Summary ---
Author Organization [facility] Address [address] [place] [address] Care Team Providers Care Medical Billing Manager Name Role Phone Unavailable Primary Care Provider Unavailabl e Encounter Details Date Type Department Care Team (Late st Contact Info) Description 08/29/2008 Orders Only [facility] Laboratory Services - [facility] ([facility]) [address] [place], [place] [address] Lakisha Ruiz, [facility] [address] [place] [phone] Social History Tobacco Use Types Packs/Day Years Used Date Smoking Tobacco: Never Assessed Sex and Gender Information Value Date Recorded Sex Assigned at Not on file Gender Identity Not on file Sexual Orientation Not on file documented as of this encounter Plan of Treatment Not on file documented as of this encounter Procedures Procedure Name Priority Date/Time Associated Diagnosis Comments CYTOPATHOLOGY Routine 08/29/2008 0:00 EDT documented in this encounter Results * CYTOPATHOLOGY (08/29/2008 0:00 EDT) Pathology Report: CYTOPATHOLOGY REPORT ? Reports generated via electronic interface contain original data; ? however they are lacking the format of the original report. ? Caution should be taken when reading/interpreti ng unformatted reports. ? Name: ? ELSIE COFFMAN ? Accession #: ? [id number] ? : ? 1975 (Age: 32) ??F ?Collect Date: ? 08/29/2008 ? Location: ? [facility] ? Receive Date: ? 08/30/2008 ? Provider: ?LAKISHA GM VICE PRESIDENT [employer] ? Copy to: ? Specimen/Source: ?Pap Test, Cervix/Endocervix, ThinPrep Imaging System ? with manual evaluation ? Last Menstrual Period: ? 5/8/09 ? Other: ? HPVA - HPV testing requested if ASC-US on the current ThinPrep Pap test. ? SPECIMEN ADEQUACY ? Satisfactory for Evaluation ? - transformation zone component present ? GENERAL CATEGORIZATION ? Negative for Intraepithelial Lesion or Malignancy ? Document reviewed and electronically signed by: ? Shaye Taylor, CT(ASCP)(IAC) ? Report Date: ??08/31/2008 16:53 ? End of Report ? MARKY SANTOS 08/29/2008 08/30/2008 Lakisha Ruiz VICE PRESIDENT [employer] PATHOLOGY ORDERABLES MARKY SANTOS [address] [place] [address] documented in this encounter Visit Diagnoses Not on filedocumented in this encounter
--- OUTSIDE RECORDS SUMMARY | 2023-11-01 20:09 | XMS_ITS | Encounter Summary ---
Author Organization [facility] Address [address] [place] [address] Care Team Providers Care Pulley Worker Name Role Phone Unavailable Primary Care Provider Unavailabl e Encounter Details Date Type Department Care Team (Late st Contact Info) Description 02/15/2008 Before [facility] Converted Visit (Maple) [facility] - Maple conversion [address] [place] [address] Frederic Falcon MD [address] [place] [id number] Social History Tobacco Use Types Packs/Day Years Used Date Smoking Tobacco: Never Assessed Sex and Gender Information Value Date Recorded Sex Assigned at Not on file Gender Identity Not on file Sexual Orientation Not on file documented as of this encounter Plan of Treatment Not on file documented as of this encounter Procedures Procedure Name Priority Date/Time Associated Diagnosis Comments SURGICAL PATHOLOGY Routine 02/15/2008 0:00 EST documented in this encounter Results * SURGICAL PATHOLOGY (02/15/2008 0:00 EST) Pathology Report: SURGICAL PATHOLOGY REPORT ? Reports generated via electronic interface contain original data; ? however they are lacking the format of the original report. ? Caution should be taken when reading/interpreti ng unformatted reports. ? Name: ? MEGHNA, ELSIE J ? Accession #: ? [id number] ? : ? 1975 (Age: 32) ??F ? Collect Date: ? 02/15/2008 ? Location: ? [facility] ? Receive Date: ? 02/15/2008 ? Provider: FREDERIC FALCON MD ? Copy to: JUAN YATES MD ? Final Pathologic Diagnosis: ? Esophagus, 38 cm, biopsy: ? - Squamous mucosa with increased intraepithelial eosinophils (peak count = 44 ?? eosinophils ?per high power field) and reactive epithelial changes. ??See comment. ? Comment: ? Due to a significant increase in the number of eosinophils, the possible ?? etiologies include eosinophilic esophagitis and reflux esophagitis. ??Biopsies ?? from proximal esophagus and clinical correlation will be helpful in ? differentiating the two etiologies. ??(Dr. Gonsalez)/kmm ? Document reviewed and electronically signed by: ? BATOOL GONSALEZ MD ? Report ??Date: 02/17/2008 17:13 ? By the signature above, the attending physician certifies that he/she has ? personally conducted a gross and/or microscopic examination of the described ? specimens and rendered or confirmed the above diagnosis. ? Specimen(s) Received: ? Bx esophagus 38 cm ? Clinical History: ? R/O GERD ? Gross Description: ? Received in Hollande's fixative labelled Meghna and bx esophagus at 38 ?? cm are six biopsies which vary in size from 0.3 x 0.2 x 0.1 cm up to 0.4 x 0.3 x 0.3 cm. ??The specimens are submitted intact as (A1) and (A2). ??(ARINA ? Tessitore)/ljk ? End of Report ? [facility] 02/15/2008 02/15/2008 9:4 9 EST Frederic Falcon MD PATHOLOGY ORDERABLE S Performing Organization Address City/State/[facility] Co de Phone Number MARKY [facility] [address] [place] [address] documented in this encounter Visit Diagnoses Not on filedocumented in this encounter
--- OUTSIDE RECORDS SUMMARY | 2023-11-01 20:09 | XMS_ITS | Encounter Summary ---
Author Organization [facility] Address [address] [place] [address] Care Team Providers Care Sleep Technician Name Role Phone Elise Regalado MD Primary Care Provider [phone] Encounter Details Date Type Department Care Team (Late st Contact Info) Description 05/02/2023 Lab Requisition [facility] Pathology & Laboratory Medicine - [address] [address] Abdirashid Milton, [address] [place], [place] [id number] Neoplasm of unspecified behavior of bone, soft tissue, and skin Social History Tobacco Use Types Packs/Day Years [...] Priority Date/Time Associated Diagnosis Comments SURGICAL PATHOLOGY Today 05/02/2023 13 :00 EST Neoplasm of unspecified behavior of bone, soft tissue, and skin documented in this encounter Results * SURGICAL PATHOLOGY (05/02/2023 13:00 EST) Note to Patient The following pathology results have been interpreted by your pathologist and may be available to you before your health provider has had the opportunity to review them. Please allow time for your provider to receive these results and explore management options, if applicable. 05/06/2023 9:25 [facility] Final Diagnosis A. SKIN OF BACK, RIGHT MID, SHAVE BIOPSY: - Melanocytic nevus, junctional type, with unusual architectural features and moderate cytologic atypia. - Lesion measures proximally 0.2 mm to the biopsy edge and base. B. SKIN OF FAITH, LEFT, SHAVE BIOPSY: - Melanocytic nevus, predominantly intradermal type. C. SKIN OF ABDOMEN, RIGHT MID, SHAVE BIOPSY: - Melanocytic nevus, predominantly intradermal type. 05/06/2023 9:25 [facility] Attestation By the signature below, the attending physician certifies that they have 1) personally conducted a gross and/or microscopic examination of the described specimen(s), and/or personally interpreted the results of laboratory testing of the described specimen(s), and 2) personally rendered or confirmed the above diagnosis. 05/06/2023 9:25 [facility] at 0925 Clinical History Clinical diagnosis code: D49.2 05/06/2023 9:25 [facility] Gross Description A. Received in formalin labelled with proper patient identification (initials C, H) and right mid back is a shave biopsy of white skin (0.9 x 0.4 x 0.1 cm). The skin surface displays a dark brown macule with irregular borders (0.4 x 0.3 cm). The margin is inked blue, the specimen is bisected and entirely submitted in A1. B. Received in formalin labelled with proper patient identification (initials C, H) and left worship is a shave biopsy of white-reinoso skin (0.8 x 0.4 x 0.1 cm). The skin surface displays a reinoso papule (0.3 x 0.2 cm). The margin is inked blue, the specimen is bisected and entirely submitted in B1. C. Received in formalin labelled with proper patient identification (initials C, H) and right mid abdomen is a shave biopsy of pale reinoso skin (0.7 x 0.5 x 0.1 cm). The skin surface displays a brown to dark brown papule (0.4 x 0.3 cm). The margin is inked blue, the specimen is bisected and entirely submitted in C1. Salome Winston 05/05/2023 11:09 05/06/2023 9:25 EST [facility] Performing Lab [facility] 05/06/2023 9:25 EST [facility] Scanned Images 05/06/2023 9:25 EST [facility] Tissue SPECIMEN FROM SKIN / Unknown 05/02/2023 13:00 EST 05/02/2023 22:57 EST Tissue specimen (specimen) SPECIMEN FROM SKIN / Unknown 05/02/2023 13:00 EST 05/02/2023 22:57 EST Tissue specimen (specimen) SPECIMEN FROM SKIN / Unknown 05/02/2023 13:00 EST 05/02/2023 22:57 EST Abdirashid Milton DO PATHOLOGY ORDER PASQUALE [facility] [address] [place] [address] documented in this encounter Visit Diagnoses Diagnosis Neoplasm of unspecified behavior of bone, soft tissue, and skin documented in this encounter Care Teams Sleep Technician Relationship Specialty Start Date End Date Elise Regalado MD [address] [place] [phone] PCP - General 07/12/11 documented as of this encounter
--- OUTSIDE RECORDS SUMMARY | 2023-11-01 20:09 | XMS_ITS | Encounter Summary ---
Author Organization [facility] Address [address] [place] [address] Care Team Providers Care Paperboard Machine Operator Name Role Phone Elise Regalado MD Primary Care Provider [phone] Encounter Details Date Type Department Care Team (Late st Contact Info) Description 05/11/2012 Results Only [facility] - [facility] ([facility] [address] [place] [id number] Sana Hoffman, CARLO [address] [place] [phone] Social History Tobacco Use Types [...] Diagnosis Comments PAP TEST- RESULT ONLY Routine 05/11/2012 0:00 EST documented in this encounter Results * PAP TEST- RESULT ONLY (05/11/2012 0:00 EST) Pathology Report: CYTOPATHOLOGY REPORT Reports generated via electronic interface contain original data; however they are lacking the format of the original report. Caution should be taken when reading/interpreti ng unformatted reports. Name: ? ELSIE COFFMAN ? Accession #: ? [id number] : ? 1975 (Age: 36) ??F ?Collect Date: ? 05/11/2012 Location: ? [facility] ? Receive Date: ? 05/13/2012 Provider: ?SANA HOFFMAN DEMOGRAPHER Copy to: ? Specimen/Source: ?Pap Test, Cervix/Endocervix, ThinPrep Imaging System with manual evaluation Last Menstrual Period: ? 04/22/12 Hormonal/Contracep tive Status: ? Tubal ligation: 07/03/11 ? SPECIMEN ADEQUACY ? Satisfactory for Evaluation - transformation zone component present GENERAL CATEGORIZATION ? Negative for Intraepithelial Lesion or Malignancy INTERPRETATION ? Shift in mckenzie present suggestive of bacterial vaginosis. ? Document reviewed and electronically signed by: ? AFSHAN Dumont(ASCP) ? Report Date: ??05/20/2012 07:31 End of Report MARKY SANTOS 05/11/2012 05/13/2012 Sana Hoffman DEMOGRAPHER PATHOLOGY ORDERABLES Performing Organization Address City/State/[facility] Co de Phone Number MARKY SANTOS [address] [place] [address] documented in this encounter Visit Diagnoses Not on filedocumented in this encounter Care Teams Paperboard Machine Operator Relationship Specialty Start Date End Date Elise Regalado MD [address] [place] [phone] PCP - General 07/12/11 documented as of this encounter
--- OUTSIDE RECORDS SUMMARY | 2023-11-01 20:09 | XMS_ITS | Encounter Summary ---
Author Organization [facility] Address [address] [place] [address] Care Team Providers Care Wrapper Caser Name Role Phone Unavailable Primary Care Provider Unavailabl e Encounter Details Date Type Department Care Team (Late st Contact Info) Description 04/22/2002 Results Only [facility] - Maple conversion [address] [place] [address] João Hunter MD [address] [place] [address] Social History Tobacco Use Types [...] Priority Date/Time Associated Diagnosis Comments CYTOPATHOLOGY Routine 04/22/2002 0:00 EST documented in this encounter Results * CYTOPATHOLOGY (04/22/2002 0:00 EST) Pathology Report: CYTOPATHOLOGY REPORT Reports generated via electronic interface contain original data; however they are lacking the format of the original report. Caution should be taken when reading/interpreti ng unformatted reports. Name: ? ELSIE COFFMAN ? Accession #: ? [id number] : ? 1975 (Age: 26) ??F ?Collect Date: ? 04/22/2002 Location: ? [facility] ? Receive Date: ? 04/26/2002 Provider: ?JOÃO HUNTER MD Copy to: ? Specimen/Source: ?ThinPrep Pap Test, Cervix Last Menstrual Period: ? 01/29/02 ? Menstrual/Pregnanc y Status: ? Other: ? HPVA - HPV testing requested if ASC-US on the current ThinPrep Pap test. ? SPECIMEN ADEQUACY ? Satisfactory for Evaluation - transformation zone component present GENERAL CATEGORIZATION ? Negative for Intraepithelial Lesion or Malignancy ? Document reviewed and electronically signed by: ? Arline Perdomo, ??SCT(ASCP) ? Report Date: ??04/27/2002 09:19 End of Report MARKY SANTOS 04/22/2002 04/26/2002 João Hunter MD PATHOLOGY ORDERABLES [facility] [address] [place] [address] documented in this encounter Visit Diagnoses Not on filedocumented in this encounter
--- OUTSIDE RECORDS SUMMARY | 2023-11-01 20:09 | XMS_ITS | Encounter Summary ---
Author Organization [facility] Address [address] [place] [address] Care Team Providers Care Location And Measurement Technician Name Role Phone Unavailable Primary Care Provider Unavailabl e Encounter Details Date Type Department Care Team (Late st Contact Info) Description 02/08/2005 Results Only [facility] - Maple conversion [address] [place] [address] Elise Yates MD [address] [place] [phone] Social History Tobacco Use Types [...] Priority Date/Time Associated Diagnosis Comments CYTOPATHOLOGY Routine 02/08/2005 0:00 EDT documented in this encounter Results * CYTOPATHOLOGY (02/08/2005 0:00 EDT) Pathology Report: CYTOPATHOLOGY REPORT Reports generated via electronic interface contain original data; however they are lacking the format of the original report. Caution should be taken when reading/interpreti ng unformatted reports. Name: ? ELSIE COFFMAN ? Accession #: ? [id number] : ? 1975 (Age: 29) ??F ?Collect Date: ? 02/08/2005 Location: ? [facility] ? Receive Date: ? 02/12/2005 Provider: ?ELISE YATES MD Copy to: ? Specimen/Source: ?ThinPrep Pap Test, Cervix/Endocervix, processed on [employer] ThinPrep Imaging System, with manual evaluation Last Menstrual Period: ? 01/25/05 Other: ? HPVA - HPV testing requested if ASC-US on the current ThinPrep Pap test. ? SPECIMEN ADEQUACY ? Satisfactory for Evaluation - transformation zone component present GENERAL CATEGORIZATION ? Negative for Intraepithelial Lesion or Malignancy ? Document reviewed and electronically signed by: ? Krista Blanchard, CT(ASCP) ? Report Date: ??02/18/2005 14:26 End of Report MARKY SANTOS 02/08/2005 02/12/2005 Elise Yates MD PATHOLOGY ORDERABLES [facility] [address] [place] [address] documented in this encounter Visit Diagnoses Not on filedocumented in this encounter
--- OUTSIDE RECORDS SUMMARY | 2023-11-01 20:09 | XMS_ITS | Encounter Summary ---
Author Organization [facility] Address [address] [place] [address] Care Team Providers Care Flame Cutting Machine Operator Name Role Phone Unavailable Primary Care Provider Unavailabl e Encounter Details Date Type Department Care Team (Late st Contact Info) Description 09/26/1999 Results Only [facility] [address] [place] [address] Elise Yates MD [address] [place] [address] Social History Tobacco Use Types [...] Priority Date/Time Associated Diagnosis Comments CYTOPATHOLOGY Routine 09/26/1999 0:00 EDT documented in this encounter Results * CYTOPATHOLOGY (09/26/1999 0:00 EDT) Pathology Report: CYTOPATHOLOGY REPORT Reports generated via electronic interface contain original data; however they are lacking the format of the original report. Caution should be taken when reading/interpreti ng unformatted reports. Name: ? ELSIE COFFMAN ? Accession #: ? [id number] : ? 1975 (Age: 23) ??F ?Collect Date: ? 09/26/1999 Location: ? [facility] ? Receive Date: ? 10/01/1999 Provider: ?ELISE YATES MD Copy to: ? Specimen/Source: ?Conventional Pap Test, Cervix/Endocervix Last Menstrual Period: ? 07/15/99 Menstrual/Pregnanc y Status: ? SPECIMEN ADEQUACY ? Satisfactory for evaluation. GENERAL CATEGORIZATION ? Benign Cellular Changes DESCRIPTIVE DIAGNOSIS ? 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 ? Document reviewed and electronically signed by: ? AFSHAN Dorado(ASCP) ? Report Date: ??10/01/1999 09:57 End of Report MARKY SANTOS 09/26/1999 10/01/1999 Elise Yates MD PATHOLOGY ORDERABLES MARKY SANTOS [address] [place] [address] documented in this encounter Visit Diagnoses Not on filedocumented in this encounter
--- OUTSIDE RECORDS SUMMARY | 2023-11-01 20:09 | XMS_ITS | Encounter Summary ---
Author Organization [facility] Address [address] [place] [address] Care Team Providers Care Milling Machine Operator Name Role Phone Unavailable Primary Care Provider Unavailabl e Encounter Details Date Type Department Care Team (Late st Contact Info) Description 05/29/2007 Results Only [facility] - [place] conversion [address] [place] [address] Elise Yates MD [address] [place] [address] Social History Tobacco Use Types [...] Priority Date/Time Associated Diagnosis Comments CYTOPATHOLOGY Routine 05/29/2007 0:00 EST documented in this encounter Results * CYTOPATHOLOGY (05/29/2007 0:00 EST) Pathology Report: CYTOPATHOLOGY REPORT Reports generated via electronic interface contain original data; however they are lacking the format of the original report. Caution should be taken when reading/interpreti ng unformatted reports. Name: ? ELSIE COFFMAN ? Accession #: ? [id number] : ? 1975 (Age: 31) ??F ?Collect Date: ? 05/29/2007 Location: ? [facility] ? Receive Date: ? 06/01/2007 Provider: ?ELISE YATES MD Copy to: ? Specimen/Source: ?ThinPrep Pap Test, Cervix, processed on [email or web address] ThinPrep Imaging System, with manual evaluation Last Menstrual Period: ? 03-31-07 Menstrual/Pregnanc y Status: ? Other: ? HPVA - HPV testing requested if ASC-US on the current ThinPrep Pap test. ? SPECIMEN ADEQUACY ? Satisfactory for Evaluation - transformation zone component present GENERAL CATEGORIZATION ? Negative for Intraepithelial Lesion or Malignancy ? Document reviewed and electronically signed by: ? SKYE Ramirez(ASCP) ? Report Date: ??06/04/2007 14:20 End of Report MARKY SANTOS 05/29/2007 06/01/2007 Elise Yates MD PATHOLOGY ORDERABLES MARKY SANTOS [address] [place] [address] documented in this encounter Visit Diagnoses Not on filedocumented in this encounter
--- OUTSIDE RECORDS SUMMARY | 2023-11-01 20:09 | XMS_ITS | Encounter Summary ---
Author Organization [facility] Address [address] [place] [address] Care Team Providers Care Overnight Associate Name Role Phone Elise Regalado MD Primary Care Provider [phone] Encounter Details Date Type Department Care Team (Late st Contact Info) Description 01/21/2017 Results Only [facility] [phone] Mustapha Rg MD [address] [place] [address] Social History Tobacco Use Types Packs/Day Years Used Date Smoking Tobacco: Never Assessed Sex and Gender Information Value Date Recorded Sex Assigned at Not on file Gender Identity Not on file Sexual Orientation Not on file documented as of this encounter Plan of Treatment Not on file documented as of this encounter Procedures Procedure Name Priority Date/Time Associated Diagnosis Comments SURGICAL PATHOLOGY Routine 01/21/2017 16 :36 EDT documented in this encounter Results * SURGICAL PATHOLOGY (01/21/2017 16:36 EDT) Pathology Report: SURGICAL PATHOLOGY REPORT Reports generated via electronic interface contain original data; however they are lacking the format of the original report. Caution should be taken when reading/interpret ing unformatted reports. Name: ? ELSIE COFFMAN ? Accession #: ? [id number] ? : ? 1975 (Age: 41) ??F ? Collect Date: ? 01/21/2017 ? Location: ? [facility] ? Receive Date: ? 01/22/2017 ? Provider: MUSTAPHA RG MD Copy to: ? Final Pathologic Diagnosis: ENDOMETRIUM, BIOPSY: - Secretory endometrium with chronic endometritis. Document reviewed and electronically signed by: ADE HONG MD Report ??Date: 01/24/2017 09:48 By the signature above, the attending physician certifies that he/she has personally conducted a gross and/or microscopic examination of the described specimens and rendered or confirmed the above diagnosis. Specimen(s) Received: Endometrial biopsy Clinical History: Abnormal uterine bleeding; clinical diagnosis code: N93.9 Gross Description: ? Received in formalin labelled with proper patient identification (initials C, H) and endometrial biopsy is an aggregate of reinoso-pink tissue fragments and blood tinged mucus (2.5 x 1.5 x 0.2 cm). Submitted in toto in blocks 1 and 2. EUNICE Wheeler (ASCP) 01/23/2017 7:47 AM End of Report [facility] 01/21/2017 16:3 6 EDT 01/22/2017 16:36 EDT Mustapha Rg MD PATHOLOGY ORDERABLES [facility] [address] [place] [address] documented in this encounter Visit Diagnoses Not on filedocumented in this encounter Care Teams Overnight Associate Relationship Specialty Start Date End Date Elise Regalado MD [address] [place] [phone] PCP - General 07/12/11 documented as of this encounter
--- OUTSIDE RECORDS SUMMARY | 2023-11-01 20:09 | XMS_ITS | Encounter Summary ---
Author Organization [facility] Address [address] [place] [address] Care Team Providers Care Production Cook Name Role Phone Elise Regalado MD Primary Care Provider [phone] Encounter Details Date Type Department Care Team (Latest Contact Info) Description 08/06/2013 12:10 EDT - 08/06/2013 23:59 EDT Hospital Encounter [address] [address] Unknown, Provider, Discharge Disposition: Home or Self Care Social History Tobacco Use Types Packs/Day Years Used Date Smoking Tobacco: Never Assessed Sex and Gender Information Value Date Recorded Sex Assigned at Not on file Gender Identity Not on file Sexual Orientation Not on file documented as of this encounter Discharge Disposition Disposition Code Departure Means Destination Home or Self [facility] documented in this encounter Plan of Treatment Not on file documented as of this encounter Visit Diagnoses Not on filedocumented in this encounter Care Teams Production Cook Relationship Specialty Start Date End Date Elise Regalado MD [address] [place] [phone] PCP - General 07/12/11 documented as of this encounter
--- OUTSIDE RECORDS SUMMARY | 2023-11-01 20:09 | XMS_ITS | Encounter Summary ---
Author Organization [facility] Address [address] [place] [address] Care Team Providers Care Care Worker Name Role Phone Elise Regalado MD Primary Care Provider [phone] Encounter Details Date Type Department Care Team (Late st Contact Info) Description 05/04/2020 Lab Requisition [facility] Pathology & Laboratory Medicine - [address] [address] Qian Styles MD [address] [place] [address] Other specified diseases of gallbladder Social History Tobacco Use Types Packs/Day Years [...] Date/Time Associated Diagnosis Comments SURGICAL PATHOLOGY Today 05/03/2020 13 :40 EST Other specified diseases of gallbladder documented in this encounter Results * SURGICAL PATHOLOGY (05/03/2020 13:40 EST) Final Diagnosis A. GALLBLADDER, CHOLECYSTECTOMY: -Chronic cholecystitis -One mildly reactive lymph node 05/09/2020 14:42 EST [facility] Attestation There was significant resident/fellow involvement in the diagnostic evaluation of this case. By the signature below, the attending physician certifies that they have personally conducted a gross and/or microscopic examination of the described specimens and rendered or confirmed the above diagnosis. 05/09/2020 14:42 [facility] at 1442 Clinical History Biliary dyskinesia; clinical diagnosis code: K82.8 05/09/2020 14:42 [facility] Gross Description A. Received in formalin labelled with proper patient identification (initials C, H) and gallbladder is a focally fragmented collapsed gallbladder and attached cystic duct, 8.5 x 2.0 x 1.4 cm. A periductal lymph node is not identified. The cystic duct lumen is patent. The gallbladder lumen is without contents. Calculi are not identified within the gallbladder lumen or specimen container. The wall is without areas of induration. The mucosa is velvety brown-green. Child Development Associate Teacher sections are submitted in A1 to include the en face cystic duct margin and 2 product support sales representative sections from the gallbladder wall. EUNICE ESTEBAN(ASC) 05/05/2020 9:17 05/09/2020 14:42 [facility] Resident/Gonsalo w: Dedra Jackson MD 05/09/2020 14:42 [facility] Performing Lab [facility] 05/09/2020 14:42 [facility] Scanned Images 05/09/2020 14:42 [facility] Tissue ENTIRE GALLBLADDER / Unknown 05/03/2020 13:40 EST 05/04/2020 16:37 EST Qian Styles MD PATHOLOGY ORDERABLES [facility] [address] [place] [address] documented in this encounter Visit Diagnoses Diagnosis Other specified diseases of gallbladder documented in this encounter Care Teams Care Worker Relationship Specialty Start Date End Date Elise Regalado MD [address] [place] [phone] PCP - General 07/12/11 documented as of this encounter
--- OUTSIDE RECORDS SUMMARY | 2023-11-01 20:09 | XMS_ITS | Encounter Summary ---
Author Organization [facility] Address [address] [place] [address] Care Team Providers Care Billet Inspector Name Role Phone Elise Yates MD Primary Care Provider [phone] Encounter Details Date Type Department Care Team (Late st Contact Info) Description 09/09/2014 Results Only [facility] [phone] Mimi Melgar APRN [address] [facility] [address] [place], [place] [address] Social History Tobacco Use Types Packs/Day Years [...] Diagnosis Comments PAP TEST- RESULT ONLY Routine 09/09/2014 0:00 EDT documented in this encounter Results * PAP TEST- RESULT ONLY (09/09/2014 0:00 EDT) Pathology Report: CYTOPATHOLOGY REPORT Reports generated via electronic interface contain original data; however they are lacking the format of the original report. Caution should be taken when reading/interpreti ng unformatted reports. Name: ? ELSIE COFFMAN ? Accession #: ? [id number] ? : ? 1975 (Age: 38) ??F ?Collect Date: ? 09/09/2014 ? Location: ? [facility] ? Receive Date: ? 09/12/2014 ? Provider: MIMI MELGAR COMMUNITY SERVICE WORKER Copy to: ELISE YATES MD ? Final Report SPECIMEN ADEQUACY ? Satisfactory for Evaluation - transformation zone component present GENERAL CATEGORIZATION ? Negative for Intraepithelial Lesion or Malignancy INTERPRETATION ? 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 Last Menstrual Period: 08/21/14 Specimen/Source: ??Pap Test, Cervix/Endocervix, ThinPrep Imaging System with manual evaluation Document reviewed and electronically signed by: ? AFSHAN Darden(ASCP) ? Report ??Date: 09/19/2014 13:44 HPV with Pap Test ? Date Ordered: ? 09/19/2014 ? Status: ?? Signed Out ?Date Complete: ? 09/21/2014 ? By: ??System Interface ? Date Reported: ? 09/21/2014 ? Interpretation RESULT: Negative for HPV. No E6 or E7 mRNA is detected from HPV types 16,18,31,33,35, 39,45,51,52,56,58, 59,66, and 68 by bedspread cutter hand mediated amplification. Comments Document reviewed and electronically signed by: ? System Interface ? Report date: 09/21/2014 By the signature above, the attending physician certifies that he/she has personally conducted a gross and/or microscopic examination of the described specimens and rendered or confirmed the above diagnosis. End of Report [facility] 09/09/2014 09/12/2014 Mimi Melgar APRN PATHOLOGY ORDERABLES [facility] [address] [place] [address] documented in this encounter Visit Diagnoses Not on filedocumented in this encounter Care Teams Billet Inspector Relationship Specialty Start Date End Date Elise Yates MD [address] [place] [phone] PCP - General 07/12/11 documented as of this encounter
--- OUTSIDE RECORDS SUMMARY | 2023-11-01 20:09 | XMS_ITS | Encounter Summary ---
Author Organization [facility] Address [address] [place] [address] Care Team Providers Care Corporate Development Manager Name Role Phone Elise Regalado MD Primary Care Provider [phone] Encounter Details Date Type Department Care Team (Late st Contact Info) Description 08/06/2013 Results Only [facility] [phone] Rubio Hilton, DO [address] [place] [address] Social History Tobacco Use Types Packs/Day Years Used Date Smoking Tobacco: Never Assessed Sex and Gender Information Value Date Recorded Sex Assigned at Not on file Gender Identity Not on file Sexual Orientation Not on file documented as of this encounter Plan of Treatment Not on file documented as of this encounter Procedures Procedure Name Priority Date/Time Associated Diagnosis Comments SURGICAL PATHOLOGY Routine 08/06/2013 16 :32 EDT documented in this encounter Results * SURGICAL PATHOLOGY (08/06/2013 16:32 EDT) Pathology Report: SURGICAL PATHOLOGY REPORT Reports generated via electronic interface contain original data; however they are lacking the format of the original report. Caution should be taken when reading/interpreti ng unformatted reports. Name: ? ELSIE COFFMAN ? Accession #: ? [id number] ? : ? 1975 (Age: 37) ??F ? Collect Date: ? 08/06/2013 ? Location: ? [facility] ? Receive Date: ? 08/06/2013 ? Provider: RUBIO HILTON DO Copy to: SANA HOFFMAN BRACER ? Final Pathologic Diagnosis: A. SMALL BOWEL, DUODENUM, BIOPSY: - ??Duodenal mucosa with no specific pathologic features. B. STOMACH, ANTRUM, BIOPSY: - ??Gastric antral mucosa with mild reactive (chemical) gastropathy. Document reviewed and electronically signed by: FLORY CHRISTIANSON MD Report ??Date: 08/09/2013 17:56 By the signature above, the attending physician certifies that he/she has personally conducted a gross and/or microscopic examination of the described specimens and rendered or confirmed the above diagnosis. Specimen(s) Received: A. ??Duodenal bx (#1) B. ??Gastric antrum bx (#2) Clinical History: Epigastric pain Gross Description: A. ? Received in formalin labelled with proper patient identification (initials C, H) and duodenal biopsy are two pink-reinoso tissues (0.4 x 0.2 x 0.2 cm and 0.3 x 0.3 x 0.2 cm). Entirely submitted in cassette A1. B. ?Received in formalin labelled with proper patient identification (initials C, H) and gastric antral biopsy are two pink-reinoso tissues (0.4 x 0.2 x 0.2 cm and 0.2 x 0.2 x 0.1 cm). Entirely submitted in cassette B1. Dr. Sharma 08/07/2013 09:09 AM End of Report MARKY SANTOS 08/06/2013 16:3 2 EDT 08/06/2013 16:32 EDT Rubio Hilton DO PATHOLOGY ORDERABLES Performing Organization Address City/State/[facility] Co de Phone Number MARKY SANTOS [address] [place] [address] documented in this encounter Visit Diagnoses Not on filedocumented in this encounter Care Teams Corporate Development Manager Relationship Specialty Start Date End Date Elise Regalado MD [address] [place] [phone] PCP - General 07/12/11 documented as of this encounter
--- OUTSIDE RECORDS SUMMARY | 2023-11-01 20:09 | XMS_ITS | Encounter Summary ---
Author Organization [facility] Address [address] [place] [address] Care Team Providers Care Business English Instructor Name Role Phone Unavailable Primary Care Provider Unavailabl e Encounter Details Date Type Department Care Team (Late st Contact Info) Description 04/25/2006 Results Only [facility] [place] [facility] [address] [place] [address] Elise Yates MD [address] [place] [address] Social History Tobacco Use Types [...] Priority Date/Time Associated Diagnosis Comments CYTOPATHOLOGY Routine 04/25/2006 0:00 EST documented in this encounter Results * CYTOPATHOLOGY (04/25/2006 0:00 EST) Pathology Report: CYTOPATHOLOGY REPORT Reports generated via electronic interface contain original data; however they are lacking the format of the original report. Caution should be taken when reading/interpreti ng unformatted reports. Name: ? ELSIE COFFMAN ? Accession #: ? [id number] : ? 1975 (Age: 30) ??F ?Collect Date: ? 04/25/2006 Location: ? [facility] ? Receive Date: ? 04/29/2006 Provider: ?ELISE YATES MD Copy to: ? Specimen/Source: ?ThinPrep Pap Test, Cervix/Endocervix, processed on [employer] ThinPrep Imaging System, with manual evaluation Last Menstrual Period: ? 04/17/06 Other: ? HPVA - HPV testing requested if ASC-US on the current ThinPrep Pap test. ? SPECIMEN ADEQUACY ? Satisfactory for Evaluation - transformation zone component present GENERAL CATEGORIZATION ? Negative for Intraepithelial Lesion or Malignancy ? Document reviewed and electronically signed by: ? SKYE Ramirez(ASCP) ? Report Date: ??04/30/2006 13:20 End of Report MARKY SANTOS 04/25/2006 04/29/2006 Elise Yates MD PATHOLOGY ORDERABLES MARKY SANTOS [address] [place] [address] documented in this encounter Visit Diagnoses Not on filedocumented in this encounter
--- OUTSIDE RECORDS SUMMARY | 2023-11-01 20:09 | XMS_ITS | Clinical Summary ---
Author Organization [facility] Address [address] [place] [address] Care Team Providers Care Medical Collections Name Role Phone Elise Regalado MD Primary Care Provider [phone] Social History Tobacco Use Types Packs/Day Years Used Date Smoking Tobacco: Never Assessed Interpersonal Safety Answer Date Record ed Physically Hurt Never 11/14/2019 Verbally Threaten Not on file 11/14/2019 Sex and Gender Information Value Date Recorded Sex Assigned at Not on file Gender Identity Not on file Sexual Orientation Not on file Plan of Treatment Health Maintenance Due Date Last Done Comments Hepatitis C Screen 1975 Hepatitis B Vaccine (1 of 3 - 19+ 3-dose series) 11/21 COVID-19 Vaccine ( season) 2022 Care Teams Medical Collections Relationship Specialty Start Date End Date Elise Regalado MD [address] [place] [phone] PCP - General 07/12/11
--- OUTSIDE RECORDS SUMMARY | 2023-11-01 20:09 | XMS_ITS | Referral Summary ---
Author Organization [facility] Address [address] [place] [address] Care Team Providers Care Placement Officer Name Role Phone Elise Regalado MD Primary Care Provider [phone] Social History Tobacco Use Types Packs/Day Years Used Date Smoking Tobacco: Never Assessed Interpersonal Safety Answer Date Record ed Physically Hurt Never 11/14/2019 Verbally Threaten Not on file 11/14/2019 Sex and Gender Information Value Date Recorded Sex Assigned at Not on file Gender Identity Not on file Sexual Orientation Not on file Plan of Treatment Not on file Care Teams Placement Officer Relationship Specialty Start Date End Date Elise Regalado MD [address] [place] [address] [address] [place] [phone] PCP - General 07/12/11
--- OUTSIDE RECORDS SUMMARY | 2023-11-01 20:09 | XMS_ITS | Encounter Summary ---
Author Organization [facility] Address [address] [place] [address] Care Team Providers Care Banana Grader Name Role Phone Unavailable Primary Care Provider Unavailabl e Encounter Details Date Type Department Care Team (Late st Contact Info) Description 05/29/2000 Results Only [facility] - [facility] conversion [address] [place] [address] João Hunter MD [address] [place] [address] Social History Tobacco Use Types [...] Priority Date/Time Associated Diagnosis Comments CYTOPATHOLOGY Routine 05/29/2000 0:00 EST documented in this encounter Results * CYTOPATHOLOGY (05/29/2000 0:00 EST) Pathology Report: CYTOPATHOLOGY REPORT Reports generated via electronic interface contain original data; however they are lacking the format of the original report. Caution should be taken when reading/interpreti ng unformatted reports. Name: ? ELSIE COFFMAN ? Accession #: ? [id number] : ? 1975 (Age: 24) ??F ?Collect Date: ? 05/29/2000 Location: ? [facility] ? Receive Date: ? 06/02/2000 Provider: ?JOÃO HUNTER MD Copy to: ? Specimen/Source: ?Conventional Pap Test, Cervix/Endocervix Last Menstrual Period: ? 07/16/99 Menstrual/Pregnanc y Status: ? Post ? SPECIMEN ADEQUACY ? Satisfactory for evaluation. GENERAL CATEGORIZATION ? Within Normal Limits ? Document reviewed and electronically signed by: ? SKYE Ramirez(ASCP) ? Report Date: ??06/02/2000 13:31 End of Report MARKY SANTOS 05/29/2000 06/02/2000 João Hunter MD PATHOLOGY ORDERABLES MARKY SANTOS [address] [place] [address] documented in this encounter Visit Diagnoses Not on filedocumented in this encounter
--- OUTSIDE RECORDS SUMMARY | 2023-11-01 20:09 | XMS_ITS | Encounter Summary ---
Author Organization [facility] Address [address] [place] [address] Care Team Providers Care Ball Machine Operator Name Role Phone Elise Regalado MD Primary Care Provider [phone] Encounter Details Date Type Department Care Team (Late st Contact Info) Description 04/30/2022 Lab Requisition [facility] - Main [place] [address], [place] [id number] Lyndon Sullivan MD [address] [place] [phone] Change in bowel habit; Epigastric pain; Encounter for screening for malignant neoplasm of colon Social History Tobacco Use Types Packs/Day Years [...] Date/Time Associated Diagnosis Comments SURGICAL PATHOLOGY Today 04/29/2022 9:50 EST documented in this encounter Results * SURGICAL PATHOLOGY (04/29/2022 9:50 EST) Note to Patient The following pathology results have been interpreted by your pathologist and may be available to you before your health provider has had the opportunity to review them. Please allow time for your provider to receive these results and explore management options, if applicable. 05/01/2022 13:27 EST [facility] Final Diagnosis A. DUODENUM, BIOPSY: - No diagnostic abnormality. - No features of sprue present. B. DUODENAL BULB, BIOPSY: - No diagnostic abnormality. - No features of sprue present. C. GASTRIC ANTRUM, BIOPSY: - Reactive changes. D. GASTRIC BODY, BIOPSY: - No diagnostic abnormality. E. DISTAL ESOPHAGUS, BIOPSY: - Superficial squamous mucosa with no diagnostic abnormality. F. MID ESOPHAGUS, BIOPSY: - Superficial squamous mucosa with no diagnostic abnormality. G. COLON, RANDOM BIOPSIES: - No diagnostic abnormality. H. SIGMOID COLON, BIOPSY: - Hyperplastic polyp. I. RECTUM, BIOPSY: - Tubular adenoma. 05/01/2022 13:27 [facility] Attestation By the signature below, the attending physician certifies that they have 1) personally conducted a gross and/or microscopic examination of the described specimen(s), and/or personally interpreted the results of laboratory testing of the described specimen(s), and 2) personally rendered or confirmed the above diagnosis. 05/01/2022 13:27 [facility] at 1327 Clinical History abd pain, dyspepsia, bloating, abnormal ct, abd wall cellulitis, gerd, change in bowels, screening 05/01/2022 13:27 [facility] Gross Description A. Received in formalin labeled ? Elsie J. Meghna? and ? duodenum? are 3 mucosal tissue fragments ranging in size from 0.1 cm up to 0.3 x 0.2 x 0.2 cm. Entirely submitted in A1. B. Received in formalin labeled ? Elsie J. Meghna? and ? duodenal bulb? are 2 mucosal tissue fragments each measuring 0.3 x 0.2 x 0.1 cm. Entirely submitted in B1. C. Received in formalin labeled ? Elsie J. Meghna? and ? gastric antrum? are 2 mucosal tissue fragments measuring 0.3 x 0.1 x 0.1 cm and 0.3 x 0.2 x 0.1 cm. Entirely submitted in C1. D. Received in formalin labeled ? Elsie J. Meghna? and ? gastric body? are 2 mucosal tissue fragments measuring 0.1 x 0.1 x 0.1 cm and 0.3 x 0.2 x 0.2 cm. Entirely submitted in D1. E. Received in formalin labeled ? Elsie J. Meghna? and ? distal esophagus? are 2 mucosal tissue fragments measuring 0.1 x 0.1 x 0.1 cm and 0.3 x 0.1 x 0.1 cm. Entirely submitted in E1. F. Received in formalin labeled ? Elsie J. Meghna? and ? mid esophagus? is a single mucosal tissue fragment measuring 0.4 x 0.1 x 0.1 cm. Entirely submitted in F1. G. Received in formalin labeled ? Elsie J. Meghna? and ? random colon BXs? are 5 mucosal tissue fragments ranging in size from 0.1 cm up to 0.4 x 0.1 x 0.1 cm. Entirely submitted in G1. H. Received in formalin labeled ? Elsie J. Meghna? and ? sigmoid polyp? is a single mucosal tissue fragment measuring 0.5 x 0.2 x 0.1 cm. Entirely submitted in H1. I. Received in formalin labeled ? Elsie J. Meghna? and ? rectal polyp? is a single mucosal tissue fragment measuring 0.4 x 0.3 x 0.3 cm. Entirely submitted in I1. KIN ARELLANO 04/30/2022 10:58 05/01/2022 13:27 EST [facility] Performing Lab [facility] 05/01/2022 13:27 [facility] Scanned Images 05/01/2022 13:27 [facility] Tissue ENTIRE RECTUM / Unknown 04/29/2022 9:50 EST 04/30/2022 9:13 EST Tissue specimen (specimen) DUODENAL AMPULLA STRUCTURE / Unknown 04/29/2022 9:50 EST 04/30/2022 9:13 EST Tissue specimen (specimen) SPECIMEN FROM STOMACH OBTAINED BY TOTAL GASTRECTOMY / Unknown 04/29/2022 9:50 EST 04/30/2022 9:13 EST Tissue specimen (specimen) GASTRIC CORPUS STRUCTURE / Unknown 04/29/2022 9:50 EST 04/30/2022 9:13 EST Tissue specimen (specimen) ESOPHAGEAL STRUCTURE / Unknown 04/29/2022 9:50 EST 04/30/2022 9:13 EST Tissue specimen (specimen) ESOPHAGEAL STRUCTURE / Unknown 04/29/2022 9:50 EST 04/30/2022 9:13 EST Tissue specimen (specimen) COLON STRUCTURE / Unknown 04/29/2022 9:50 EST 04/30/2022 9:13 EST Tissue specimen (specimen) SIGMOID COLON STRUCTURE / Unknown 04/29/2022 9:50 EST 04/30/2022 9:13 EST Tissue specimen (specimen) ENTIRE RECTUM / Unknown 04/29/2022 9:50 EST 04/30/2022 9:13 EST Lyndon Sullivan MD PATHOLOGY ORD ERABLES [facility] [address] [place] [address] documented in this encounter Visit Diagnoses Diagnosis Change in bowel habit Epigastric pain Abdominal pain, epigastric Encounter for screening for malignant neoplasm of colon Special screening for malignant neoplasms, colon documented in this encounter Care Teams Ball Machine Operator Relationship Specialty Start Date End Date Elise Regalado MD [address] [place] [phone] PCP - General 07/12/11 documented as of this encounter
--- OUTSIDE RECORDS SUMMARY | 2023-11-01 20:09 | XMS_ITS | Encounter Summary ---
Author Organization [facility] Address [address] [place] [id number] Care Team Providers Care Integration Technician Name Role Phone Unavailable Primary Care Provider Unavailabl e Encounter Details Date Type Department Care Team (Late st Contact Info) Description 07/03/2011 Results Only [facility] - [facility] [address] [place] [id number] Marissa Leos MD [address] [place] [address] [place] [phone] Social History Tobacco Use Types Packs/Day Years Used Date Smoking Tobacco: Never Assessed Sex and Gender Information Value Date Recorded Sex Assigned at Not on file Gender Identity Not on file Sexual Orientation Not on file documented as of this encounter Plan of Treatment Not on file documented as of this encounter Procedures Procedure Name Priority Date/Time Associated Diagnosis Comments SURGICAL PATHOLOGY Routine 07/03/2011 0:00 EDT documented in this encounter Results * SURGICAL PATHOLOGY (07/03/2011 0:00 EDT) Pathology Report: SURGICAL PATHOLOGY REPORT Reports generated via electronic interface contain original data; however they are lacking the format of the original report. Caution should be taken when reading/interpreti ng unformatted reports. Name: ? ELSIE COFFMAN ? Accession #: ? [id number] ? : ? 1975 (Age: 35) ??F ? Collect Date: ? 07/03/2011 ? Location: ? [facility] ? Receive Date: ? 07/03/2011 ? Provider: MARISSA LEOS MD Copy to: JUAN YATES MD ? Final Pathologic Diagnosis: A. ?Fallopian tube, left, segmental resection: 1. ?Fallopian tube with no specific pathologic features. 2. ? Complete luminal cross sections are identified. B. ?Fallopian tube, right, segmental resection: 1. ?Fallopian tube with no specific pathologic features. 2. ? Complete luminal cross sections are identified. ?? Document reviewed and electronically signed by: JOSE MANUEL SALDAÑA MD Report ??Date: 07/05/2011 15:49 By the signature above, the attending physician certifies that he/she has personally conducted a gross and/or microscopic examination of the described specimens and rendered or confirmed the above diagnosis. Specimen(s) Received: A. ?Portion of left fallopian tube B. ? Portion of right fallopian tube Clinical History: ? Desires sterilization Gross Description: ? Received in formalin labelled Meghna, Elsie and portion left fallopian tube is a 1.5 cm in length by 0.7 cm in diameter firm, tubular segment of tissue which has a smooth reinoso serosa. ??Two union contract representative cross sections are submitted as (A). Received in formalin labelled Meghna, Elsie and portion right fallopian tube is a 1.7 cm in length and 0.7 cm in diameter fir, tubular segment of tissue which has a smooth reinoso serosa. ??Two union contract representative cross sections are submitted as (B). (Monico Calderón)/mpl End of Report MARKY SANTOS 07/03/2011 07/03/2011 16: 27 EDT Marissa Leos MD PATHOLOGY ORDERABLES Performing Organization Address City/State/[facility] Co tx Phone Number [facility] [address] [place] [address] documented in this encounter Visit Diagnoses Not on filedocumented in this encounter
--- NOTE | 2023-11-01 20:15 | RT.EKG_ITS ---
APPROVED REPORT Exam: Resting ECG Reason for Exam: palpitations Patient Location: E HR:91 bpm ECG Measurements Heart Rate 91 AXIS CO 140 P 52 QRSd 92 QRS 55 QT 363 T 57 QTc 447 Conclusion Sinus rhythm...normal P axis, V-rate 60- 99
[2023-11-01 20:44] LABS: Lactate 1.1 mmol/L (0.6-1.4)
[2023-11-01 20:49] LABS: Abs Immature Grans 0.03 10^3/uL (0.0-0.06); Absolute Basophil Count 0.03 10^3/uL (0.0-0.2); Absolute Eosinophil Count 0.07 10^3/uL (0.0-0.7); Absolute Lymphocyte Count 1.03 10^3/uL (1.2-3.4); Absolute Monocyte Count 0.78 10^3/uL (0.1-0.8); Absolute Neutrophil Count 8.24 10^3/uL (1.2-6.7); Basophils % 0.3 %; Eosinophils % 0.7 %; HCT 47.4 % (36.0-46.0); Immature Grans % 0.3 %; Lymphocytes % 10.1 %; MCH 28.5 pg (27.0-33.0); MCHC 33.8 % (32.0-36.0); MCV 85 fL (80-95); MPV 8.8 fL (8.0-11.0); Monocytes % 7.7 %; Neutrophils % 80.9 %; Platelet Count 299 10^3/uL (130-400); RBC 5.61 10^6/uL (3.93-5.22); RDW 13.2 % (11.7-14.6); WBC 10.18 10^3/uL (4.4-10.8)
[2023-11-01] MEDS: cefTRIAXone 2 GM/50 ML BAG IVPB (21:02)
[2023-11-01 21:03] LABS: Bilirubin Negative (Negative); Blood Small (Negative); Clarity Clear (Clear); Glucose Negative (Negative); Ketones Negative (Negative); Leukocyte Esterase Negative (Negative); Nitrite Negative (Negative); Urobilinogen 0.2 mg/dL (Up to 0.2); pH 5.5 (5-8)
[2023-11-01 21:04] LABS: ALT 24 U/L (14-59); AST 15 U/L (15-37); Alkaline Phosphatase 97 U/L (46-116); Anion Gap 10.1 mmol/L (3-11); BUN 10 mg/dL (7-18); Bilirubin, Total 0.63 mg/dL (0.2-1.0); CO2 26.9 mmol/L (21.0-32.0); CREATININE 1.1 mg/dL (0.55-1.02); Calcium 8.9 mg/dL (8.5-10.1); Chloride 99 mmol/L (98-107); Estimated GFR 62.76 (mL/min/1.73m2); Glucose 114 mg/dL (74-106); Potassium 3.7 mmol/L (3.5-5.1); Sodium 136 mmol/L (136-145); Total Protein 8.1 g/dL (6.4-8.2)
[2023-11-01] MEDS: DOXYCYCLINE 100 MG in Normal Saline 100 ML IVPB (21:04)
[2023-11-01 21:07] LABS: Creatine Kinase 118 U/L (26-192); Troponin I < 50 ng/L (< or =60)
[2023-11-01 21:10] LABS: Bacteria Negative HPF (Negative); C & S Indicated? No; Casts Negative LPF (Negative); Crystals Negative HPF (Negative); Epithelial Cells Few HPF (Negative); Mucus Negative (Negative); WBC 0-2 HPF (0-5)
[2023-11-01 21:17] LABS: Procalcitonin < 0.1 ng/mL
[2023-11-01 21:58] VITALS: BP 149/92
[2023-11-03 11:32] LABS: Lyme Ab w Rflx to Lyme Confirm Negative (Negative)
[2023-11-04 12:28] LABS: Anaplasma phagocytophilum Negative (Negative); B. miyamotoi PCR Negative (Negative); Babesia divergens/MO-1 Negative (Negative); Babesia duncani Negative (Negative); Babesia microti Negative (Negative); Ehrlichia chaffeensis Negative (Negative); Ehrlichia ewingii/canis Negative (Negative); Ehrlichia muris eauclairensis Negative (Negative)
--- NOTE | 2023-11-05 15:46 | W.ED.FU ---
Date of service: 11/05/23 Time of Service: 15:46 Follow Up Plan: Spoke with patient regarding tick and Lyme panel which was negative and drawn on 11/01/2023 she verbalized understanding she does say that she has a new lesion that has popped up on her back however she is feeling somewhat better after beginning the cephalexin and doxycycline which was prescribed for her. She is questioning whether this could be MRSA as her child's father has had MRSA in the past and has similar rash. She does have an appointment with her PCP on the and I encouraged her to discuss this with them for reevaluation and further treatment and if needed.
== END 2023-11-01 22:07 | disposition home or self-care (01) ==
PROVIDERS: Emergency Provider Physician Assistant; PCP Family Medicine
DX: R42 Dizziness and giddiness (principal); A69.20 Lyme disease, unspecified
CPT/HCPCS: 80053; 81025; 82550; 84145; 87040; 87798; 93005; 96365; 96368; 99284; 81003; 81015; 83605; 84484; 85025; 86618; 93010; 99283; J0696

== ENCOUNTER 2024-07-12 14:44 | Outpatient (REF) | payer MEDICAID, SELFPAY ==
[2024-07-12 14:05] LABS: Bilirubin Negative (Negative); Blood Trace-lysed (Negative); Clarity Clear (Clear); Glucose Negative (Negative); Ketones Negative (Negative); Leukocyte Esterase Negative (Negative); Nitrite Negative (Negative); Urobilinogen 0.2 mg/dL (Up to 0.2); pH 5.5 (5-8)
[2024-07-12 14:18] LABS: Bacteria Moderate HPF (Negative); Crystals Negative HPF (Negative); Epithelial Cells Moderate HPF (Negative); Mucus Trace (Negative); RBC 0-2 HPF (0-2); WBC Negative HPF (0-5)
[2024-07-12 14:19] LABS: C & S Indicated? No; Casts Negative LPF (Negative)
== END 2024-07-12 14:45 | disposition home or self-care (01) ==
LOC: LBN 14:44
PROVIDERS: PCP Family Medicine; Visit Provider Nurse Practitioner Gerontology
DX: R31.29 Other microscopic hematuria (principal); R39.9 Unspecified symptoms and signs involving the genitourinary system; R31.9 Hematuria, unspecified; N95.2 Postmenopausal atrophic vaginitis
CPT/HCPCS: 81003; 81015

== ENCOUNTER 2025-03-07 03:50 | Outpatient (CLI) | payer MEDICAID, SELFPAY ==
[2025-03-07 12:27] LABS: HCT 43.9 % (36.0-46.0); HGB 14.8 g/dL (11.2-15.7); MCH 27.9 pg (27.0-33.0); MCHC 33.7 % (32.0-36.0); MCV 83 fL (80-95); MPV 9.0 fL (8.0-11.0); Platelet Count 323 10^3/uL (130-400); RBC 5.30 10^6/uL (3.93-5.22); RDW 13.1 % (11.7-14.6); RDW-SD 39.3 fL; WBC 8.77 10^3/uL (4.4-10.8)
[2025-03-07 13:22] LABS: ALT 20 U/L (10-49); AST 18 U/L (<34); Albumin 4.3 g/dL (3.4-5.0); Alkaline Phosphatase 95 U/L (46-116); Anion Gap 7.6 mmol/L (3-11); BUN 14 mg/dL (9-23); Bilirubin, Total 0.30 mg/dL (0.2-1.2); CO2 25.4 mmol/L (20.0-31.0); Calcium 8.9 mg/dL (8.3-10.6); Chloride 106 mmol/L (98-107); Glucose 109 mg/dL (74-106); Potassium 4.2 mmol/L (3.5-5.1); Sodium 139 mmol/L (136-145); Total Protein 6.9 g/dL (5.7-8.2)
[2025-03-07 13:38] LABS: TSH (W/Ref FT4) < 0.01 uIU/mL (0.55-4.78)
[2025-03-07 17:03] LABS: Hemoglobin A1C 5.7 % (<5.7)
[2025-03-07 22:38] LABS: T3,Free 5.3 pg/mL (2.8-5.3)
== END 2025-03-07 03:51 | disposition home or self-care (01) ==
LOC: LBO 03:50
PROVIDERS: PCP Family Medicine; Visit Provider Family Medicine
DX: R53.83 Other fatigue (principal)
CPT/HCPCS: 36415; 80053; 85027; 83036; 84439; 84443; 84481

== ENCOUNTER 2025-04-01 19:22 | Outpatient (CLI) | payer MEDICAID, SELFPAY ==
[2025-04-01 18:01] LABS: TSH < 0.01 uIU/mL (0.55-4.78)
[2025-04-02 10:23] LABS: HCT 46.4 % (36.0-46.0); HGB 15.3 g/dL (11.2-15.7); MCH 27.9 pg (27.0-33.0); MCHC 33.0 % (32.0-36.0); MCV 85 fL (80-95); MPV 10.3 fL (8.0-11.0); Platelet Count 389 10^3/uL (130-400); RBC 5.48 10^6/uL (3.93-5.22); RDW 13.2 % (11.7-14.6); RDW-SD 41.1 fL; WBC 8.90 10^3/uL (4.4-10.8)
[2025-04-02 22:37] LABS: T3, Total 158 ng/dL (82-158)
== END 2025-04-01 19:23 | disposition home or self-care (01) ==
LOC: LBO 19:24
PROVIDERS: PCP Family Medicine; Visit Provider Family Medicine
DX: R79.89 Other specified abnormal findings of blood chemistry (principal)
CPT/HCPCS: 36415; 85027; 84235; 84439; 84443; 84480